=== PATIENT | male | born 1935 | race Caucasian/White ===

== ENCOUNTER 2017-09-20 09:53 | Day surgery (SDC) | payer OTHER, BC ==
[2017-09-20] MEDS ORDERED: PROPOFOL 20 ML ONE ×3 (11:15)
[2017-09-20 11:59] VITALS: TEMP 98
[2017-09-20 13:18] VITALS: BP 125/64; PULSE 62
--- NOTE | 2017-09-21 16:39 | PATH ---
Surgical Pathology Report Patient Name: ZULMA BENITEZ [facility]. Rec. #: [id number] /Age/Gender: 1935 (Age: 82) / M Account: [id number] Location: ASU-ENDOSCOPY Taken: 09/20/2017 Received: 09/20/2017 Reported: 09/21/2017 Physicians: Juan Antonio Florentino M.D. Specimen(s) Received A: BX DUODENUM B: BX ULCERATION 2ND PORTION DUODENUM C: BX DUODENUM BULB D: BX ANTRUM E: BX DISTAL ESOPHAGUS Clinical History Preoperative diagnosis: Reflux, constipation Postoperative diagnosis: Hiatal hernia, GERD, Schatzki's ring, atrophic gastritis, duodenal bulb polyp, ulcer second portion of duodenum, diverticulosis Final Diagnosis A. DUODENUM, SECOND PORTION/BULB, BIOPSY: DUODENAL MUCOSA WITH LYMPHOPLASMACYTOSIS WITHIN LAMINA PROPRIA, INCREASED INTRAEPITHELIAL LYMPHOCYTES, AND MILD VILLOUS BLUNTING. SEE COMMENT. B. DUODENUM, SECOND PORTION, ULCERATION, BIOPSY: DUODENAL MUCOSA WITH LYMPHOPLASMACYTOSIS WITHIN LAMINA PROPRIA, FOCAL ACUTE INFLAMMATION WITH ASSOCIATED ULCERATION, INCREASED INTRAEPITHELIAL LYMPHOCYTES, AND VILLOUS BLUNTING. SEE COMMENT. C. DUODENAL BULB, BIOPSY: DUODENAL MUCOSA WITH LYMPHOPLASMACYTOSIS WITHIN LAMINA PROPRIA, INCREASED INTRAEPITHELIAL LYMPHOCYTES, UYEN'S GLAND HYPERPLASIA, AND VILLOUS ATROPHY. SEE COMMENT. D. STOMACH, ANTRUM, BIOPSY: GASTRIC ANTRAL MUCOSA WITH MILD TO MODERATE CHRONIC GASTRITIS. IMMUNOHISTOCHEMICAL STAIN FOR H. PYLORI IS NEGATIVE. E. SCHATZI'S RING, DISTAL ESOPHAGUS, BIOPSY: SQUAMOCOLUMNAR MUCOSA WITH MODERATE CHRONIC INFLAMMATION AND CHANGES OF MILD REFLUX ESOPHAGITIS. NO INTESTINAL METAPLASIA OR DYSPLASIA IDENTIFIED. 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 Features of peptic duodenitis also present. Suggest clinical/serologic correlation. Electronically Signed Tonie Kaur M.D. Gross Description A. Received in formalin, labeled "biopsy second portion of duodenum and duodenal bulb" are 4 palacios, irregular portions of soft tissue ranging from 0.3-0.4 cm. in greatest dimension. The specimens are submitted in toto in one cassette. B. Received in formalin, labeled "biopsy ulceration second portion of duodenum" are 4 palacios, irregular portions of soft tissue ranging from 0.1-0.4 cm. in greatest dimension. The specimens are submitted in toto in one cassette. C. Received in formalin, labeled "biopsy duodenal bulb polyp" is a palacios, irregular portion of soft tissue measuring 0.2 cm. in greatest dimension. The specimen is submitted in toto in one cassette. D. Received in formalin, labeled "biopsy antrum" are 4 palacios, irregular portions of soft tissue ranging from 0.1-0.4 cm. in greatest dimension. The specimens are submitted in toto in one cassette. E. Received in formalin, labeled "biopsy Schatzki's ring distal esophagus" are 4 palacios, irregular portions of soft tissue ranging from 0.1-0.5 cm. in greatest dimension. The specimens are submitted in toto in one cassette. 09/20/2017 [facility]09/20/2017
== END 2017-09-20 13:10 | disposition home or self-care (01) ==
LOC: JASU-ENDO 09:53
PROVIDERS: ATTEND Internal Medicine Gastroenterology
PROC: 0DB68ZX Excision of Stomach, Via Natural or Artificial Opening Endoscopic, Diagnostic (ICD-10-PCS; 2017-09-20)
PROC: 0DB38ZX Excision of Lower Esophagus, Via Natural or Artificial Opening Endoscopic, Diagnostic (ICD-10-PCS; 2017-09-20)
PROC: 0DJD8ZZ Inspection of Lower Intestinal Tract, Via Natural or Artificial Opening Endoscopic (ICD-10-PCS; 2017-09-20)
PROC: 0DB98ZX Excision of Duodenum, Via Natural or Artificial Opening Endoscopic, Diagnostic (ICD-10-PCS; principal; 2017-09-20 11:00)
DX: K21.9 Gastro-esophageal reflux disease without esophagitis (principal); R19.4 Change in bowel habit; K44.9 Diaphragmatic hernia without obstruction or gangrene; K22.2 Esophageal obstruction; K31.819 Angiodysplasia of stomach and duodenum without bleeding; K26.9 Duodenal ulcer, unspecified as acute or chronic, without hemorrhage or perforation; K29.50 Unspecified chronic gastritis without bleeding; Z86.010 Personal history of colon polyps
CPT/HCPCS: 88305-TC; 88342-TC

== ENCOUNTER 2018-11-21 11:13 | Inpatient (IN) | payer OTHER, BC ==
[2018-11-21] MEDS ORDERED: DIPHTH,PERTUSS(ACELL),TET 0.5 ML DISP.SYRIN IM ONE ×2 (12:08→12:34)
[2018-11-21 12:41] LABS: BASO % 0.2 % (0-2.0); EOS % 2.6 % (0-4.5); HEMATOCRIT 30.3 % (35.4-49); HEMOGLOBIN 9.8 GM/dL (11.7-16.9); LYMPH % 8.3 % (8-40); MCH 29.1 pg (25.7-33.7); MCHC 32.5 g/dl (32.0-35.9); MEAN CELL VOLUME 89.5 fl (80-96); MEAN PLT VOLUME 8.2 fl (7.5-11.1); MONO % 14.4 % (3.8-10.2); NEUT % 74.5 % (42.8-82.8); PLATELET COUNT 172 K/MM3 (134-434); RBC 3.38 M/mm3 (4.00-5.60); RDW 19.5 % (11.9-15.9); WHITE BLOOD COUNT 8.6 K/mm3 (4.0-10.0)
--- NOTE | 2018-11-21 12:55 | PDOC ---
Documentation entered by Leonor Whitney SCRIBE, acting as scribe for James Miguel MD. James Miguel MD: This documentation has been prepared by the Chelo pemberton Nirvannie, SCRIBE, under my direction and personally reviewed by me in its entirety. I confirm that the documentation accurately reflects all work, treatment, procedures, and medical decision making performed by me. History of Present Illness - General Chief Complaint: Syncope/Near Syncope Stated Complaint: SYNCOPE Time Seen by Provider: 11/21/18 11:48 History Source: Patient Exam Limitations: No Limitations - History of Present Illness Initial Comments: 11/21/18 12:23 CC: Syncope HPI: The patient is a 83 year old male, with a significant past medical history of HTN, HLD, CAD (s/p cardiac stenting x2), and prostate cancer (s/p radiation at [facility] approx. way through treatment), who presents to the emergency department s /p episode of syncope while ambulating to the bathroom. As per patient, for the past 4 days he has been experiencing loose, watery, nonbloody diarrhea with associated moderate, diffuse, constant abdominal pain for which he took Imodium for, without relief. During his episode, patient endorses abrasions to the left sided forehead, left cheek, and left elbow. Patient is unaware of his last tetanus shot. He denies any recent antibiotic usage, travel, or hospitalizations. He denies any recent fevers, chills, headache, lightheadedness, or dizziness. He denies any recent nausea, vomit, diarrhea or constipation. He denies any recent chest pain or shortness of breath. He denies any recent dysuria, frequency, urgency or hematuria. Allergies: Penicillins. Primary Care Physician: Dr. Johnson Past History - Past Medical History Allergies/Adverse Reactions: Allergies Allergy/AdvReac Type Severity Reaction Status Date / Time Penicillins Allergy Verified 11/21/18 11:33 Home Medications: Ambulatory Orders Allopurinol [Zyloprim -] 300 mg PO DAILY 01/24/13 Metoprolol Succinate [Toprol XL -] 50 mg PO DAILY 01/24/13 Olmesartan Medoxomil [Benicar -] 40 mg PO DAILY 01/24/13 Ranolazine [Ranexa] 500 mg PO DAILY 01/25/13 Aspirin [ASA -] 81 mg PO DAILY 09/17/17 Pantoprazole Sodium [Protonix] 40 mg PO DAILY 09/17/17 Polyethylene Glycol 3350 [Miralax 255 gm Btl] 17 gm PO DAILY #1 bottle 09/20/17 Anemia: No Asthma: No Cancer: Yes (prostate) Cardiac Disorders: Yes (ASHD; CAD) CVA: No COPD: No CHF: No Dementia: No Diabetes: No GI Disorders: Yes (GERD; COLON ADENOMA;DIVERTICULOSIS;DUODENAL ULCERS) Disorders: Yes (BPH) HTN: No Hypercholesterolemia: Yes Liver Disease: No Seizures: No Thyroid Disease: No - Surgical History Abdominal Surgery: No Appendectomy: No Cardiac Surgery: Yes (STENTS X 2004; S/P LEFT CAROTID ARTERY SURGERY) Cholecystectomy: No Lung Surgery: No Neurologic Surgery: No Orthopedic Surgery: Yes (ORIF ARM) - Immunization History Immunization Up to Date: Yes - Suicide/Smoking/Psychosocial Hx Smoking History: Former smoker Have you smoked in the past 12 months: No If you are a former smoker, when did you quit?: 50 yrs ago Information on smoking cessation initiated: No Hx Alcohol Use: No Drug/Substance Use Hx: No Substance Use Type: None Hx Substance Use Treatment: No Review of Systems - Review of Systems Able to Perform ROS?: Yes Comments:: 11/21/18 12:23 ROS: A complete review of 10 out of 10 review of systems is taken and is negative apart from what is previously mentioned below and in the HPI. *Physical Exam - Vital Signs Last Vital Signs Temp Pulse Resp BP Pulse Ox 97.3 F L 70 18 114/53 L 100 11/21/18 11:20 11/21/18 11:20 11/21/18 11:20 11/21/18 11:20 11/21/18 11:20 - Physical Exam Comments: 11/21/18 12:23 Vitals: Triage vital signs reviewed General Appearance: No acute distress, well nourished, well developed Head: +Abrasions to the left forehead and left cheek. Neck: Supple; No nuchal rigidity Chest Wall: Nontender Cardiac: Regular rate and rhythm, no murmurs, no rubs, no gallops Lungs: Clear to auscultation bilateral, good air movement bilaterally Abdomen: Soft, nondistended, normal bowel sounds, nontender to palpation Genitourinary: Exam deferred Rectal: Exam deferred Extremities: +Left elbow abrasion. Full range of motion to all extremities, no cyanosis, clubbing, or edema Skin: Warm and dry, no rash, no petechiae Neuro: AOX3; Cranial Nerves 2-12 grossly intact, Strength intact to all extremities, Sensation intact to all extremities, gait normal Psych: Normal mood, normal affect ED Treatment Course - LABORATORY CBC & Chemistry Diagram: 11/21/18 12:27 11/21/18 11:36 Medical Decision Making - Medical Decision Making 11/21/18 12:26 83 year old male, with a significant past medical history of HTN, HLD, CAD (s/p cardiac stenting x2), and prostate cancer (s/p radiation at [facility] approx. way through treatment), who presents to the emergency department s/p episode of syncope while ambulating to the bathroom. 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 *DC/Admit/Observation/Transfer Diagnosis at time of Disposition: Hypernatremia, Hypocalcemia Syncope Qualifiers: Syncope type: unspecified Qualified Code(s): R55 - Syncope and collapse - Discharge Dispostion Decision to Admit order: Yes - Referrals - Patient Instructions - Post Discharge Activity
[2018-11-21 13:29] LABS: ALBUMIN 2.5 g/dl (3.4-5.0); ALK PHOS 101 U/L (45-117); ANION GAP 9 MMOL/L (8-16); BILIRUBIN,TOTAL 0.3 mg/dL (0.2-1); BLOOD UREA NITROGEN 24 mg/dL (7-18); CHLORIDE 121 mmol/L (98-107); CO2 16 mmol/L (21-32); CREATININE 1.6 mg/dL (0.55-1.3); GLUCOSE,RANDOM 76 mg/dL (74-106); POTASSIUM 4.4 mmol/L (3.5-5.1); SGOT/AST 20 U/L (15-37); SGPT/ALT 13 U/L (13-61); SODIUM 146 mmol/L (136-145); TOT PROT 5.2 g/dl (6.4-8.2)
[2018-11-21 13:39] LABS: CALCIUM < 5.0 mg/dL (8.5-10.1)
[2018-11-21] MEDS ORDERED: SODIUM CHLORIDE 0.9% 1000 ML INFUS.BAG IV ONE (14:14)
[2018-11-21] MEDS ORDERED: CALCIUM GLUCONATE 10% - 1,000 MG/10 ML VIAL IVPB ONE ×2 (14:14→22:13)
[2018-11-21] MEDS ORDERED: CALCIUM GLUCONATE 10% - 1,000 MG/10 ML VIAL ONE (14:42)
[2018-11-21] MEDS ORDERED: BACITRACIN 0.9 GM PACKET ONE (16:43)
[2018-11-21 17:53] LABS: PHOSPHOROUS 2.2 mg/dL (2.5-4.9)
[2018-11-21] MEDS: DEXTROSE 5%-0.45% SALINE 1,000 ML IV SCH ×2 (18:33→23:07)
[2018-11-21] MEDS: PANTOPRAZOLE 20 MG TABLET (FP) PO SCH (22:19)
[2018-11-21] MEDS: RANOLAZINE E.R. 500 MG TABLET (FP) PO SCH (22:19)
[2018-11-22 05:52] LABS: HEMATOCRIT 31.1 % (35.4-49); HEMOGLOBIN 10.1 GM/dL (11.7-16.9); MCH 28.4 pg (25.7-33.7); MCHC 32.5 g/dl (32.0-35.9); MEAN CELL VOLUME 87.5 fl (80-96); MEAN PLT VOLUME 8.2 fl (7.5-11.1); PLATELET COUNT 193 K/MM3 (134-434); RBC 3.55 M/mm3 (4.00-5.60); RDW 19.2 % (11.9-15.9)
[2018-11-22 07:27] LABS: ALBUMIN 2.4 g/dl (3.4-5.0); ALK PHOS 104 U/L (45-117); ANION GAP 10 MMOL/L (8-16); BILIRUBIN,TOTAL 0.3 mg/dL (0.2-1); BLOOD UREA NITROGEN 21 mg/dL (7-18); CHLORIDE 120 mmol/L (98-107); CO2 14 mmol/L (21-32); CREATININE 1.3 mg/dL (0.55-1.3); GLUCOSE,RANDOM 87 mg/dL (74-106); MAGNESIUM 0.6 mg/dL (1.8-2.4); PHOSPHOROUS 2.6 mg/dL (2.5-4.9); POTASSIUM 4.2 mmol/L (3.5-5.1); SGOT/AST 22 U/L (15-37); SGPT/ALT 14 U/L (13-61); SODIUM 143 mmol/L (136-145); TOT PROT 5.2 g/dl (6.4-8.2); URIC ACID 4.9 mg/dL (2.6-7.2)
[2018-11-22 08:31] LABS: CALCIUM 5.1 mg/dL (8.5-10.1)
[2018-11-22] MEDS ORDERED: PT OWN MED DRAWER 7, Y5N ONE ×2 (08:51→21:11)
[2018-11-22] MEDS: RANOLAZINE E.R. 500 MG TABLET (FP) PO SCH ×2 (09:11→21:21)
[2018-11-22] MEDS: PANTOPRAZOLE 20 MG TABLET (FP) PO SCH ×2 (09:12→21:21)
[2018-11-22] MEDS: CALCIUM CARBONATE 650 MG TABLET PO SCH ×2 (09:12→21:21)
[2018-11-22] MEDS ORDERED: MAGNESIUM SULF 50% (8.12 MEQ/2 ML-1 GM VIAL) IVPB ONE ×2 (10:00→21:15)
[2018-11-22] MEDS: metoPROLOL SUCCINATE 25 MG TAB.SR.24H (FP) PO SCH (11:30)
[2018-11-22 14:11] LABS: URINE APPEARANCE CLEAR; URINE BILIRUBIN NEGATIVE (NEGATIVE); URINE COLOR YELLOW; URINE GLUCOSE (UA) NEGATIVE (NEGATIVE); URINE KETONE NEGATIVE (NEGATIVE); URINE LEUK ESTERASE NEGATIVE (NEGATIVE); URINE NITRITE NEGATIVE (NEGATIVE); URINE PROTEIN NEGATIVE (NEGATIVE); URINE UROBILINOGEN 0.2 mg/dL (0.2-1.0)
--- NOTE | 2018-11-22 14:17 | HP ---
Admitting History and Physical - Primary Care Physician PCP: Erasmo Johnson - Admission Chief Complaint: fainted History of Present Illness: 83 year old male, who was BIBA following a syncopal episode at home. He has a significant past medical history of HTN, HLD, CAD (s/p cardiac stenting x2), and local prostate cancer (currently undergoing RT via [facility] --completed 04/20 sessions), who sys that he developed watery stools about 6-7 days ago right after his RT sessions began. prior to thius he had no had any such problem and was actually taking Miralax (for chronic constipation) that he stopped at the time his watery BMs began. On the day he was brought in; he lost consciousness and fell at home while ambulating to the bathroom. he struck his forehead and his LUE. He denied any bloody BMs, no n-v, did have some transient lower abd pains. He took Imodium but it offered no relief. He denies any recent antibiotic usage, travel, He denies any recent fevers, chills, headache. He denies any recent chest pain or shortness of breath. He has c/o of slow urinary flow while getting RT and placed on Flomax but had no response. he only trook 2 doses of the Flomax. History Source: Patient Limitations to Obtaining History: No Limitations - Past Medical History Cardiovascular: Yes: CAD, HTN, Hyperlipdemia Gastrointestinal: Yes: Constipation Renal/: Yes: Cancer Heme/Onc: Yes: Anemia Musculoskeletal: Yes: Osteoarthritis Rheumatology: Yes: Gout - Past Surgical History Additional Past Surgical History: circumcision; coronary stenting; prostate Bx - Advance Directives Advance Directives: Yes: Living Will, Health Care Proxy - Smoking History Smoking history: Former smoker Have you smoked in the past 12 months: No If you are a former smoker, when did you quit?: 50 years ago - Alcohol/Substance Use Hx Alcohol Use: No Home Medications - Allergies Allergies/Adverse Reactions: Allergies Allergy/AdvReac Type Severity Reaction Status Date / Time Penicillins Allergy Verified 11/21/18 11:33 - Home Medications Home Medications: Ambulatory Orders Allopurinol [Zyloprim -] 300 mg PO DAILY 01/24/13 Metoprolol Succinate [Toprol XL -] 50 mg PO DAILY 01/24/13 Olmesartan Medoxomil [Benicar -] 40 mg PO DAILY 01/24/13 Ranolazine [Ranexa] 500 mg PO DAILY 01/25/13 Aspirin [ASA -] 81 mg PO DAILY 09/17/17 Pantoprazole Sodium [Protonix] 40 mg PO DAILY 09/17/17 Polyethylene Glycol 3350 [Miralax 255 gm Btl] 17 gm PO DAILY #1 bottle 09/20/17 Bicalutamide 50 mg PO DAILY 11/22/18 Leuprolide Acetate Q3M 11/22/18 Naproxen Sodium [Aleve] 220 mg PO BID PRN MDD 440 mg 11/22/18 Pregabalin [Lyrica -] 150 mg PO BID PRN MDD 300 mg 11/22/18 Prolia - 11/22/18 Tamsulosin HCl [Flomax] 0.4 mg PO HS 11/22/18 Family Disease History - Family Disease History Family History: Unremarkable Review of Systems - Review of Systems Constitutional: reports: No Symptoms Eyes: reports: No Symptoms HENT: reports: No Symptoms Neck: reports: No Symptoms Cardiovascular: reports: No Symptoms Respiratory: reports: No Symptoms Gastrointestinal: reports: Diarrhea Genitourinary: reports: Dysuria Musculoskeletal: reports: No Symptoms Integumentary: reports: Bruising (LUE; forehead) Neurological: reports: Syncope Endocrine: reports: No Symptoms Hematology/Lymphatic: reports: No Symptoms Psychiatric: reports: No Symptoms Physical Examination Vital Signs: Vital Signs Temperature 97.9 F 11/22/18 10:00 Pulse Rate 80 11/22/18 10:00 Respiratory Rate 18 11/22/18 10:00 Blood Pressure 118/47 L 11/22/18 10:00 O2 Sat by Pulse Oximetry (%) 99 11/22/18 09:00 Constitutional: Yes: Well Nourished, No Distress Eyes: Yes: Conjunctiva Clear HENT: Yes: WNL Neck: Yes: WNL Cardiovascular: Yes: Regular Rate and Rhythm Respiratory: Yes: Regular Gastrointestinal: Yes: Normal Bowel Sounds, Soft ...Rectal Exam: Yes: Deferred Musculoskeletal: Yes: WNL Extremities: Yes: WNL Edema: No Peripheral Pulses WNL: Yes Integumentary: Yes: Bruising, Skin Tear (LUE and forehead) Neurological: Yes: WNL, Alert, Oriented ...Motor Strength: WNL Psychiatric: Yes: WNL Labs: CBC, BMP 11/22/18 05:30 11/22/18 05:30 CBCD WBC 7.0 K/mm3 (4.0-10.0) 11/22/18 05:30 RBC 3.55 M/mm3 (4.00-5.60) L 11/22/18 05:30 Hgb 10.1 GM/dL (11.7-16.9) L 11/22/18 05:30 Hct 31.1 % (35.4-49) L 11/22/18 05:30 MCV 87.5 fl (80-96) 11/22/18 05:30 MCHC 32.5 g/dl (32.0-35.9) 11/22/18 05:30 RDW 19.2 % (11.9-15.9) H 11/22/18 05:30 Plt Count 193 K/MM3 (134-434) 11/22/18 05:30 MPV 8.2 fl (7.5-11.1) 11/22/18 05:30 CMP Sodium 143 mmol/L (136-145) 11/22/18 05:30 Potassium 4.2 mmol/L (3.5-5.1) 11/22/18 05:30 Chloride 120 mmol/L (98-107) H 11/22/18 05:30 Carbon Dioxide 14 mmol/L (21-32) L 11/22/18 05:30 Anion Gap 10 MMOL/L (8-16) 11/22/18 05:30 BUN 21 mg/dL (7-18) H 11/22/18 05:30 Creatinine 1.3 mg/dL (0.55-1.3) 11/22/18 05:30 Creat Clearance w eGFR 52.47 (>60) 11/22/18 05:30 Random Glucose 87 mg/dL (74-106) 11/22/18 05:30 Calcium 5.1 mg/dL (8.5-10.1) L* 11/22/18 05:30 Total Bilirubin 0.3 mg/dL (0.2-1) 11/22/18 05:30 AST 22 U/L (15-37) 11/22/18 05:30 ALT 14 U/L (13-61) 11/22/18 05:30 Alkaline Phosphatase 104 U/L (45-117) 11/22/18 05:30 Total Protein 5.2 g/dl (6.4-8.2) L 11/22/18 05:30 Albumin 2.4 g/dl (3.4-5.0) L 11/22/18 05:30 CARDIAC ENZYMES Troponin I < 0.02 ng/ml (0.00-0.05) 11/21/18 11:36 Imaging - Results Chest X-ray: Report Reviewed Cat Scan: Report Reviewed EKG: Report Reviewed Problem List - Problems (1) Syncope Assessment/Plan: suddenly lost consciousness when upright & walking; causing abrasion to head and LUE; the LOC was likely 2nd low BP state stemming from his copious watery diarrhea that began at the start of his RT (for prostate cancer): PLAN: on athletic monitor; check ortho BPs; PT eval. Code(s): R55 - SYNCOPE AND COLLAPSE Qualifiers: Syncope type: unspecified Qualified Code(s): R55 - Syncope and collapse (2) Hypocalcemia Assessment/Plan: profoundly low; likley 2nd copious watery stools PLAN: replenish Code(s): E83.51 - HYPOCALCEMIA (3) Hypernatremia Assessment/Plan: 2nd intravasc contraction from watery diarrhea. 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 PLAN: get GI consult; stool studies if possible. Code(s): R19.7 - DIARRHEA, UNSPECIFIED Qualifiers: Diarrhea type: unspecified type Qualified Code(s): R19.7 - Diarrhea, unspecified (7) Anemia Assessment/Plan: mild; not new NC/NC Code(s): D64.9 - ANEMIA, UNSPECIFIED Qualifiers: Anemia type: unspecified type Qualified Code(s): D64.9 - Anemia, unspecified (8) Hypomagnesemia Assessment/Plan: 2nd copious fluid losses; PLAN: replensih Code(s): E83.42 - HYPOMAGNESEMIA (9) History of coronary artery stent placement Assessment/Plan: has been stable Code(s): Z95.5 - PRESENCE OF CORONARY ANGIOPLASTY IMPLANT AND GRAFT Assessment/Plan The patient is a 83 year old male, admiitted for syncope preceded by days of daily and sevewre loose stools; with resultant electrolyte imbalances. he will need to be repleted and levels monitored. ~~~~~~~~~~~~~~~~~~~~~~~~~~~~~~~~~~~~~~~ Dr Johnson
--- NOTE | 2018-11-22 14:20 | EKG ---
Test Reason : Blood Pressure : / mmHG Vent. Rate : 063 BPM Atrial Rate : 063 BPM P-R Int : 242 ms QRS Dur : 062 ms QT Int : 478 ms P-R-T Axes : 063 010 039 degrees QTc Int : 489 ms POOR DATA QUALITY, INTERPRETATION MAY BE ADVERSELY AFFECTED SINUS RHYTHM WITH 1ST DEGREE A-V BLOCK NONSPECIFIC T WAVE ABNORMALITY PROLONGED QT ABNORMAL ECG Confirmed by MD MAINE, SHERRELL ([id number]) on 11/22/2018 2:19:53 PM Referred By: Confirmed By:SHERRELL GROVE MD
[2018-11-22] MEDS: DEXTROSE 5%-0.45% SALINE 1,000 ML IV SCH ×2 (17:15→18:31)
[2018-11-22] MEDS: AMINO ACIDS/PROTEIN HYDROLYS 30 ML LIQUID.PKT PO SCH (17:18)
--- NOTE | 2018-11-22 17:22 | CON.GI ---
Consult Consult Specialty:: Gastroenterology Referred by:: Dr Johnson Reason for Consultation:: Diarrhea - History of Present Illness Chief Complaint: Profuse diarrhea leading to a syncopal spell History of Present Illness: 83M developed watery diarrhea 7 days ago. His initial BMs occurred 7 times a day and initially had greasy stool particles that were difficult to flush. He immediately stopped taking his Miralax and apparently tried Imodium but the diarrhea persisted. He denies having had abdominal cramps ( but the ER reports abdominal pain) bleeding, chills, tenesmus, nausea or vomiting. He admits to drinking insufficiently as it caused noicturia and had no electrolyte solutions. He is in the midst of RT for prostate cancer, having received 9 of his anticipated 26 dosages.He has been exposed to antibiotics while getting dental implants in 2018. No foreign travel. No exposures to family members with diarrhea. He did receive a Prolia injection 3 weeks ago and prior to that had been given a Lupron injection. His appetite has been poor for over a year and he has been losing weight. He also lost his taste for meat. He attributed it to Nifedipine which was recently stopped. He weighed over 200 lbs at one time. He weigher 185 lbs in my office on 09/09/17 where he complained of worsening constipation and heartburn. He underwent an EGD and a colonoscopy on 09/20/17. The EGD revealed mild GERD above a hiatal hernia and a patent Schatzki ring, atrophic gastritis and a small vascular ectasia in the 2nd portion of the duodenum. The colonoscopy revealed mild sigmoid diverticulosis but an otherwise normal colon. His fecal impaction had responded to a Miralax lavage and he was advised to take one dose daily. With this he was having a well formed BM regularly until 7 days ago. He tells me that he is being evaluated at [facility] for a pancreatic cyst that was 7mm in the tail of th3 pancreas on [address] here on 06/06/18, suggesting an IPMN. - History Source History Provided By: Patient Limitations to Obtaining History: No Limitations - Past Medical History Cardio/Vascular: Yes: CAD (4 coronary stenst in 2004), HTN, Hyperlipdemia, Other (carotid stenosis) Gastrointestinal: Yes: Constipation, Diverticulosis, GERD, Hiatal Hernia, Peptic Ulcer Disease (duodenal ulcer 2012), Other (colon ademnoma removed 2012, 06/06/18 pancreatic tail 7mm IPMN) Renal/: Yes: BPH, Cancer (prostate cancer) Musculoskeletal: Yes: Osteoarthritis Rheumatology: Yes: Gout Endocrine: Yes: Osteopenia (osteporosis) - Past Surgical History Past Surgical History: Yes: Carotid Endarterectomy (left), Tonsillectomy Additional Surgical History: LUE fracture surgery - Alcohol/Substance Use Hx Alcohol Use: Yes (socially) History of Substance Use: reports: None - Smoking History Smoking history: Former smoker Have you smoked in the past 12 months: No If you are a former smoker, when did you quit?: 1959 - Social History Usual Living Arrangement: With Spouse ADL: Independent 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 Place of : [facility] History of Recent Travel: No Home Medications - Allergies Allergies/Adverse Reactions: Allergies Allergy/AdvReac Type Severity Reaction Status Date / Time Penicillins Allergy Verified 11/21/18 11:33 - Home Medications Home Medications: Ambulatory Orders Allopurinol [Zyloprim -] 300 mg PO DAILY 01/24/13 Metoprolol Succinate [Toprol XL -] 50 mg PO DAILY 01/24/13 Olmesartan Medoxomil [Benicar -] 40 mg PO DAILY 01/24/13 Ranolazine [Ranexa] 500 mg PO DAILY 01/25/13 Aspirin [ASA -] 81 mg PO DAILY 09/17/17 Pantoprazole Sodium [Protonix] 40 mg PO DAILY 09/17/17 Polyethylene Glycol 3350 [Miralax 255 gm Btl] 17 gm PO DAILY #1 bottle 09/20/17 Bicalutamide 50 mg PO DAILY 11/22/18 Leuprolide Acetate Q3M 11/22/18 Naproxen Sodium [Aleve] 220 mg PO BID PRN MDD 440 mg 11/22/18 Pregabalin [Lyrica -] 150 mg PO BID PRN MDD 300 mg 11/22/18 Prolia - 11/22/18 Tamsulosin HCl [Flomax] 0.4 mg PO HS 11/22/18 Family Disease History - Family Disease History Family Disease History: Heart Disease: Father (CHF), Brother ( with jaundice ), CA: Mother (Uterine cancer), Other: Brother Other Family History: Grandaughter has Crohn's Disease Review of Systems - Review of Systems Constitutional: reports: Loss of Appetite, Unintentional Wgt. Loss, Other ( dysgeusia) Eyes: reports: No Symptoms HENT: reports: No Symptoms Neck: reports: No Symptoms Cardiovascular: reports: No Symptoms Respiratory: reports: No Symptoms Gastrointestinal: reports: Diarrhea Genitourinary: reports: Frequency Physical Exam-GI Vital Signs: Vital Signs Temperature 97.9 F 11/22/18 10:00 Pulse Rate 66 11/22/18 13:00 Respiratory Rate 18 11/22/18 10:00 Blood Pressure 117/49 L 11/22/18 13:00 O2 Sat by Pulse Oximetry (%) 99 11/22/18 09:00 CBC,CMP WBC 7.0 K/mm3 (4.0-10.0) 11/22/18 05:30 RBC 3.55 M/mm3 (4.00-5.60) L 11/22/18 05:30 Hgb 10.1 GM/dL (11.7-16.9) L 11/22/18 05:30 Hct 31.1 % (35.4-49) L 11/22/18 05:30 MCV 87.5 fl (80-96) 11/22/18 05:30 MCH 28.4 pg (25.7-33.7) 11/22/18 05:30 MCHC 32.5 g/dl (32.0-35.9) 11/22/18 05:30 RDW 19.2 % (11.9-15.9) H 11/22/18 05:30 Plt Count 193 K/MM3 (134-434) 11/22/18 05:30 MPV 8.2 fl (7.5-11.1) 11/22/18 05:30 Absolute Neuts (auto) 6.4 K/mm3 (1.5-8.0) 11/21/18 12:27 Neutrophils % 74.5 % (42.8-82.8) 11/21/18 12:27 Lymphocytes % 8.3 % (8-40) 11/21/18 12:27 Monocytes % 14.4 % (3.8-10.2) H 11/21/18 12:27 Eosinophils % 2.6 % (0-4.5) 11/21/18 12:27 Basophils % 0.2 % (0-2.0) 11/21/18 12:27 Nucleated RBC % 0 % (0-0) 11/21/18 12:27 Sodium 143 mmol/L (136-145) 11/22/18 05:30 Potassium 4.2 mmol/L (3.5-5.1) 11/22/18 05:30 Chloride 120 mmol/L (98-107) H 11/22/18 05:30 Carbon Dioxide 14 mmol/L (21-32) L 11/22/18 05:30 Anion Gap 10 MMOL/L (8-16) 11/22/18 05:30 BUN 21 mg/dL (7-18) H 11/22/18 05:30 Creatinine 1.3 mg/dL (0.55-1.3) 11/22/18 05:30 Creat Clearance w eGFR 52.47 (>60) 11/22/18 05:30 Random Glucose 87 mg/dL (74-106) 11/22/18 05:30 Uric Acid 4.9 mg/dL (2.6-7.2) 11/22/18 05:30 Calcium 5.1 mg/dL (8.5-10.1) L* 11/22/18 05:30 Phosphorus 2.6 mg/dL (2.5-4.9) 11/22/18 05:30 Magnesium 0.6 mg/dL (1.8-2.4) L 11/22/18 05:30 Total Bilirubin 0.3 mg/dL (0.2-1) 11/22/18 05:30 AST 22 U/L (15-37) 11/22/18 05:30 ALT 14 U/L (13-61) 11/22/18 05:30 Alkaline Phosphatase 104 U/L (45-117) 11/22/18 05:30 Troponin I < 0.02 ng/ml (0.00-0.05) 11/21/18 11:36 Total Protein 5.2 g/dl (6.4-8.2) L 11/22/18 05:30 Albumin 2.4 g/dl (3.4-5.0) L 11/22/18 05:30 TSH 1.18 uIU/ml (0.358-3.74) 11/22/18 05:30 Current Medications Generic Name Dose Route Start Last Admin Trade Name Freq PRN Reason Stop Dose Admin Amino Acids 30 ml 11/22/18 17:30 11/22/18 17:18 Prosource No Carb Liquid Pkt PO 30 ml BID@0800,1730 CAIO Administration Calcium Carbonate 650 mg 11/22/18 10:00 11/22/18 09:12 Calcium Carbonate - PO 650 mg BID CAIO Administration Dextrose/Sodium Chloride 1,000 mls @ 42 mls/hr 11/21/18 16:15 11/22/18 17:15 D5-1/2ns - IV Not Given ASDIR CAIO Loperamide HCl 2 mg 11/21/18 16:20 Imodium - PO Q8H PRN DIARRHEA Metoprolol Succinate 25 mg 11/22/18 10:00 11/22/18 11:30 Toprol Xl - PO Not Given DAILY CAIO Pantoprazole Sodium 20 mg 11/21/18 22:00 11/22/18 09:12 Protonix - PO 20 mg BID CAIO Administration Ranolazine 500 mg 11/21/18 22:00 11/22/18 09:11 Ranexa - PO 500 mg BID CAIO Administration Constitutional: Yes: Calm Eyes: Yes: Conjunctiva Clear HENT: Yes: Atraumatic, Other (forehead bruise) Neck: Yes: Supple Cardiovascular: Yes: Regular Rate and Rhythm Respiratory: Yes: CTA Bilaterally Gastrointestinal Inspection: Yes: WNL ...Auscultate: Yes: Hypoactive Bowel Sounds ...Palpate: Yes: Soft, Other (nontender) ...Rectal Exam: Yes: Guaiac Positive (smudge of loose brown guaiac positive stool), Other (2+ prostate) Extremities: Yes: Other (left elbow maceration, RUE maceration) Edema: No Neurological: Yes: Alert, Oriented Labs: CBC, BMP 11/22/18 05:30 11/22/18 05:30 Problem List - Problems (1) Diarrhea Assessment/Plan: Given the profound hypomagnesemia leading to hypocalcemia and syncope I suspect that enteritis is more at play than colitis. Given the persistence after it was stopped I do not think that Miralax is at fault. Potential etiologies include RT enteritis, small bowel overgrowth syndrome (SIBA) or another infectious enteritis ( C. diff enterocolitis, giardiasis, isospora angelica, microsporidia in an immunocompromised host), flare of an underlying celiac disease ( doubt this as biopsies did not identify this). Although his grandaughter has Crohns Disease this is also unlikely as it usually has a more insidous onset. Pancreatic etiologies such as insufficiency ,Hadley Cruz syndrome ( also unlikely given lack of ulceration at EGD), VIPoma or glucagonoma seem less likely. Code(s): R19.7 - DIARRHEA, UNSPECIFIED Qualifiers: Diarrhea type: unspecified type Qualified Code(s): R19.7 - Diarrhea, unspecified (2) Syncope Code(s): R55 - SYNCOPE AND COLLAPSE Qualifiers: Syncope type: unspecified Qualified Code(s): R55 - Syncope and collapse (3) Hypocalcemia Code(s): E83.51 - HYPOCALCEMIA (4) Hypomagnesemia Code(s): E83.42 - HYPOMAGNESEMIA (5) Anemia Code(s): D64.9 - ANEMIA, UNSPECIFIED Qualifiers: Anemia type: unspecified type Qualified Code(s): D64.9 - Anemia, unspecified (6) IPMN (intraductal papillary mucinous neoplasm) Code(s): D49.0 - NEOPLASM OF UNSPECIFIED BEHAVIOR OF DIGESTIVE SYSTEM (7) Prostate cancer Code(s): C61 - MALIGNANT NEOPLASM OF PROSTATE (8) Colon adenoma Code(s): D12.6 - BENIGN NEOPLASM OF COLON, UNSPECIFIED (9) Diverticulosis Code(s): K57.90 - DVRTCLOS OF INTEST, PART UNSP, W/O PERF OR ABSCESS W/O BLEED (10) Hiatal hernia with GERD without esophagitis Code(s): K44.9 - DIAPHRAGMATIC HERNIA WITHOUT OBSTRUCTION OR GANGRENE; K21.9 - GASTRO-ESOPHAGEAL REFLUX DISEASE WITHOUT ESOPHAGITIS (11) Vascular ectasia of duodenum Code(s): K31.89 - OTHER DISEASES OF STOMACH AND DUODENUM (12) History of coronary artery stent placement Code(s): Z95.5 - PRESENCE OF CORONARY ANGIOPLASTY IMPLANT AND GRAFT (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 Given his antibiotic exposure C diff needs to be excluded as well as other infectious etiologies including SIBA. Doubt Crohn's, celiac disease presenting this late in life personal h/o duodenal ulcer, GERD, cololn adenoma and diverticulosis, [facility] with Crohn's Disease Plan: Replace magnesium, calcium and IV fluids. Will check ionized Ca Continue Imodium Stool for C diff and cultures being collected Fecal elastase and stool for fat Will check VBG , bicarb is 14 Lactose free soft diet Will reserve flex sig for persistent diarrhea. Would not risk anesthesia with prolonged QT and current electrolyte imbalance
[2018-11-22 19:55] LABS: MAGNESIUM 1.3 mg/dL (1.8-2.4)
[2018-11-22] MEDS ORDERED: [UNRECOGNIZED DRUG - OTHER] IVPB ONE (21:15)
[2018-11-22] MEDS ORDERED: MAGNESIUM SULF 50% (8.12 MEQ/2 ML-1 GM VIAL) ONE (21:16)
[2018-11-22 21:55] LABS: CALCIUM 5.1 mg/dL (8.5-10.1)
[2018-11-22] MEDS ORDERED: CALCIUM GLUCONATE 10% - 1,000 MG/10 ML VIAL IVPB ONE (22:42)
[2018-11-23] MEDS: DEXTROSE 5%-0.45% SALINE 1,000 ML IV SCH ×2 (05:11→16:31)
[2018-11-23 06:12] LABS: BASO % 0.2 % (0-2.0); EOS % 4.5 % (0-4.5); HEMATOCRIT 27.7 % (35.4-49); HEMOGLOBIN 9.2 GM/dL (11.7-16.9); LYMPH % 13.7 % (8-40); MCH 28.7 pg (25.7-33.7); MCHC 33.2 g/dl (32.0-35.9); MEAN CELL VOLUME 86.6 fl (80-96); MEAN PLT VOLUME 8.1 fl (7.5-11.1); MONO % 12.9 % (3.8-10.2); NEUT % 68.7 % (42.8-82.8); PLATELET COUNT 193 K/MM3 (134-434); RDW 19.2 % (11.9-15.9); WHITE BLOOD COUNT 8.1 K/mm3 (4.0-10.0)
[2018-11-23] MEDS: AMINO ACIDS/PROTEIN HYDROLYS 30 ML LIQUID.PKT PO SCH ×2 (08:12→16:32)
[2018-11-23 08:38] LABS: ANION GAP 9 MMOL/L (8-16); BLOOD UREA NITROGEN 16 mg/dL (7-18); CHLORIDE 119 mmol/L (98-107); CO2 16 mmol/L (21-32); CREATININE 1.1 mg/dL (0.55-1.3); GLUCOSE,RANDOM 98 mg/dL (74-106); MAGNESIUM 1.6 mg/dL (1.8-2.4); PHOSPHOROUS 1.9 mg/dL (2.5-4.9); SODIUM 144 mmol/L (136-145)
[2018-11-23 08:51] LABS: LDH 242 U/L (87-246)
[2018-11-23 09:00] LABS: CALCIUM 5.1 mg/dL (8.5-10.1)
[2018-11-23] MEDS ORDERED: PT OWN MED DRAWER 7, Y5N ONE (09:08)
[2018-11-23] MEDS: metoPROLOL SUCCINATE 25 MG TAB.SR.24H (FP) PO SCH (09:15)
[2018-11-23] MEDS: RANOLAZINE E.R. 500 MG TABLET (FP) PO SCH ×2 (09:15→21:40)
[2018-11-23] MEDS: PANTOPRAZOLE 20 MG TABLET (FP) PO SCH ×2 (09:15→21:40)
[2018-11-23] MEDS: CALCIUM CARBONATE 650 MG TABLET PO SCH (09:15)
[2018-11-23] MEDS ORDERED: MAGNESIUM SULF 50% (8.12 MEQ/2 ML-1 GM VIAL) IVPB ONE ×2 (10:00→10:45)
[2018-11-23] MEDS ORDERED: CALCIUM CHLORIDE 10% 1 GM/10 ML *VIAL IVPB ONE (10:10)
[2018-11-23] MEDS ORDERED: CALCIUM GLUCONATE 10% - 1,000 MG/10 ML VIAL IVPB ONE ×2 (10:30→20:45)
--- NOTE | 2018-11-23 11:59 | PN.GI ---
GI Progress Note Subjective: GI NOte: Still having diarrhea but refused the Imodium. Cultures still pending. Mg and Ca still require replacement. Had some wheezing earlier but this has resolved. Feeling better. - Objective Vital Signs: Vital Signs Temperature 97.4 F L 11/23/18 08:13 Pulse Rate 68 11/23/18 08:13 Respiratory Rate 16 11/23/18 08:13 Blood Pressure 110/53 L 11/23/18 08:13 O2 Sat by Pulse Oximetry (%) 99 11/22/18 21:00 Microbiology Laboratory Tests 11/23/18 11/23/18 11/23/18 05:30 05:30 05:30 WBC 8.1 Hct 27.7 L Retic Count Potassium 4.0 Carbon Dioxide 16 L BUN 16 Creatinine 1.1 Calcium 5.1 L* Phosphorus 1.9 L Magnesium 1.6 L C-Reactive Protein 9.0 H Tiss Transglutamin IgG Pending Tiss Transglutamin IgA Pending S.cerevisiae IgG Ab Pending S. cerevisiae IgG/IgA Pending 11/23/18 05:30 WBC Hct Retic Count 1.06 Potassium Carbon Dioxide BUN Creatinine Calcium Phosphorus Magnesium C-Reactive Protein Tiss Transglutamin IgG Tiss Transglutamin IgA S.cerevisiae IgG Ab S. cerevisiae IgG/IgA Constitutional: Calm ...Auscultate: Yes: Normoactive Bowel Sounds ...Palpate: Yes: Soft, Other (nonteder) Labs: CBC, BMP 11/23/18 05:30 11/23/18 05:30 Assessment/Plan Impression: RT enteritis Hypomagnesemia and hypocalcemia Plan: Replace magnesium, calcium and IV fluids. Await ionized Ca and VBG Continue Imodium Fecal elastase and stool for fat pending Lactose free soft diet Will reserve flex sig for persistent diarrhea. Would not risk anesthesia with prolonged QT and current electrolyte imbalance Problem List - Problems (1) Diarrhea Code(s): R19.7 - DIARRHEA, UNSPECIFIED Qualifiers: Diarrhea type: unspecified type Qualified Code(s): R19.7 - Diarrhea, unspecified (2) Syncope Code(s): R55 - SYNCOPE AND COLLAPSE Qualifiers: Syncope type: unspecified Qualified Code(s): R55 - Syncope and collapse (3) Hypocalcemia Code(s): E83.51 - HYPOCALCEMIA (4) Hypomagnesemia Code(s): E83.42 - HYPOMAGNESEMIA (5) Anemia Code(s): D64.9 - ANEMIA, UNSPECIFIED Qualifiers: Anemia type: unspecified type Qualified Code(s): D64.9 - Anemia, unspecified (6) IPMN (intraductal papillary mucinous neoplasm) Code(s): D49.0 - NEOPLASM OF UNSPECIFIED BEHAVIOR OF DIGESTIVE SYSTEM (7) Prostate cancer Code(s): C61 - MALIGNANT NEOPLASM OF PROSTATE (8) Colon adenoma Code(s): D12.6 - BENIGN NEOPLASM OF COLON, UNSPECIFIED (9) Diverticulosis Code(s): K57.90 - DVRTCLOS OF INTEST, PART UNSP, W/O PERF OR ABSCESS W/O BLEED (10) Hiatal hernia with GERD without esophagitis Code(s): K44.9 - DIAPHRAGMATIC HERNIA WITHOUT OBSTRUCTION OR GANGRENE; K21.9 - GASTRO-ESOPHAGEAL REFLUX DISEASE WITHOUT ESOPHAGITIS (11) Vascular ectasia of duodenum Code(s): K31.89 - OTHER DISEASES OF STOMACH AND DUODENUM (12) History of coronary artery stent placement Code(s): Z95.5 - PRESENCE OF CORONARY ANGIOPLASTY IMPLANT AND GRAFT (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
[2018-11-23] MEDS ORDERED: DEXTROSE 5%-0.45% SALINE 1,000 ML IV SCH (12:03)
[2018-11-23] MEDS: CALCIUM (OYSTER SHELL) 500 MG TABLET (FP) PO SCH ×3 (13:28→21:40)
[2018-11-23 13:32] LABS: VENOUS PH 7.21 (7.31-7.41)
--- NOTE | 2018-11-23 16:04 | PN ---
Progress Note (short form) - Note Progress Note: Current Medications Amino Acids (Prosource No Carb Liquid Pkt) 30 ml PO BID@0800,1730 [facility] Last Admin: 11/23/18 08:12 Dose: 30 ml Calcium Carbonate (Os-Oleg 500mg -) 500 mg PO QID [facility] Last Admin: 11/23/18 13:28 Dose: 500 mg Dextrose/Sodium Chloride (D5-1/2ns -) 1,000 mls @ 42 mls/hr IV ASDIR [facility] Loperamide HCl (Imodium -) 2 mg PO Q8H PRN PRN Reason: DIARRHEA Metoprolol Succinate (Toprol Xl -) 25 mg PO DAILY [facility] Last Admin: 11/23/18 09:15 Dose: 25 mg Pantoprazole Sodium (Protonix -) 20 mg PO BID [facility] Last Admin: 11/23/18 09:15 Dose: 20 mg Ranolazine (Ranexa -) 500 mg PO BID [facility] Last Admin: 11/23/18 09:15 Dose: 500 mg Laboratory Results - last 24 hr 11/22/18 11/23/18 11/23/18 18:25 05:30 05:30 WBC 8.1 RBC 3.20 L Hgb 9.2 L Hct 27.7 L MCV 86.6 MCH 28.7 MCHC 33.2 RDW 19.2 H Plt Count 193 MPV 8.1 Absolute Neuts (auto) 5.6 Neutrophils % 68.7 Lymphocytes % 13.7 D Monocytes % 12.9 H Eosinophils % 4.5 Basophils % 0.2 Nucleated RBC % 0 Retic Count VBG pH POC VBG pCO2 POC VBG pO2 VBG HCO3 VBG O2 Sat (Abe) VBG Base Excess Sodium 144 Potassium 4.0 Chloride 119 H Carbon Dioxide 16 L Anion Gap 9 BUN 16 Creatinine 1.1 Creat Clearance w eGFR 63.62 Random Glucose 98 Lactic Acid Calcium 5.1 L* 5.1 L* Phosphorus 1.9 L Magnesium 1.3 L 1.6 L LD Total 242 C-Reactive Protein 9.0 H 11/23/18 11/23/18 11/23/18 05:30 11:05 12:12 WBC RBC Hgb Hct MCV MCH MCHC RDW Plt Count MPV Absolute Neuts (auto) Neutrophils % Lymphocytes % Monocytes % Eosinophils % Basophils % Nucleated RBC % Retic Count 1.06 VBG pH 7.21 L POC VBG pCO2 40.0 L POC VBG pO2 73.0 H VBG HCO3 15.5 L VBG O2 Sat (Abe) 91.6 H VBG Base Excess -11.2 L Sodium Potassium Chloride Carbon Dioxide Anion Gap BUN Creatinine Creat Clearance w eGFR Random Glucose Lactic Acid 1.3 Calcium Phosphorus Magnesium LD Total C-Reactive Protein Vital Signs Temperature 97.6 F 11/23/18 10:00 Pulse Rate 64 11/23/18 10:00 Respiratory Rate 16 11/23/18 10:00 Blood Pressure 117/54 L 11/23/18 10:00 O2 Sat by Pulse Oximetry (%) 99 11/23/18 10:00 CC; felt some "wheezing" today; still having some watery stools; no abd pains, n -v ``````````````````````````````` skin--some pallor eyes--anicteric lungs--no overt wheezing or other congregational sounds heard heart--RR abd--soft, BS+ ext--some edema of the UE's neuro--awake; alert; coherent, Cognition intact; no focal deficits ``````````````````````````````````````````` Summ > "wheezing"--no such sounds heard on ausc of lungs; but will lower fluid rate and check CXR > Diarrhea--waning down but still having watery stools (see GI note); w/u in progress > Low Mag/calcium--2nd fluid losses; will replenish as needed (corrected calcium should be over 6.0) > anemia--NC/Nc; tested (+) for OB (as per GI), but doubt that he has lost enough to explain the lower counts; thus, may also be due to inflammatory process (has high CRP); and even hemo dilution MURALI: check erial CBC > Htn--BP has been well WNL w/o use of ARB and CCB > low protein state--due to copious GI fluid losses > prostate cancer--w/o metastatic disease; has had to suspend course of RT which had been in progress [employer] DRAW[employer] IN. 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 Code(s): I13.10 - HYP HRT & CHR KDNY DIS W/O HRT FAIL, W STG 1-4/UNSP CHR KDNY Qualifiers: Chronic kidney disease stage: stage 1 (5) Prolonged Q-T interval on ECG Code(s): R94.31 - ABNORMAL ELECTROCARDIOGRAM [ECG] [EKG] (6) Diarrhea Code(s): R19.7 - DIARRHEA, UNSPECIFIED Qualifiers: Diarrhea type: unspecified type Qualified Code(s): R19.7 - Diarrhea, unspecified (7) Anemia Code(s): D64.9 - ANEMIA, UNSPECIFIED Qualifiers: Anemia type: unspecified type Qualified Code(s): D64.9 - Anemia, unspecified (8) Hypomagnesemia Code(s): E83.42 - HYPOMAGNESEMIA (9) History of coronary artery stent placement Code(s): Z95.5 - PRESENCE OF CORONARY ANGIOPLASTY IMPLANT AND GRAFT
[2018-11-23] MEDS ORDERED: NAPH,MB-DB/K PH,MBDB POWDER PACKET PO ONE (16:06)
[2018-11-23] MEDS: LOPERAMIDE HCL 2 MG CAPSULE PO PRN (16:26)
[2018-11-23 17:35] LABS: CALCIUM 5.4 mg/dL (8.5-10.1)
[2018-11-24 05:59] LABS: BASO % 0.4 % (0-2.0); EOS % 5.6 % (0-4.5); HEMATOCRIT 27.7 % (35.4-49); HEMOGLOBIN 9.1 GM/dL (11.7-16.9); LYMPH % 13.7 % (8-40); MCH 28.4 pg (25.7-33.7); MCHC 32.8 g/dl (32.0-35.9); MEAN CELL VOLUME 86.5 fl (80-96); MEAN PLT VOLUME 8.3 fl (7.5-11.1); MONO % 13.8 % (3.8-10.2); NEUT % 66.5 % (42.8-82.8); PLATELET COUNT 170 K/MM3 (134-434); RDW 19.7 % (11.9-15.9); WHITE BLOOD COUNT 6.9 K/mm3 (4.0-10.0)
[2018-11-24 06:50] LABS: ALK PHOS 94 U/L (45-117); ANION GAP 8 MMOL/L (8-16); BILIRUBIN,TOTAL 0.5 mg/dL (0.2-1); BLOOD UREA NITROGEN 16 mg/dL (7-18); CHLORIDE 117 mmol/L (98-107); CO2 17 mmol/L (21-32); CREATININE 0.9 mg/dL (0.55-1.3); GLUCOSE,RANDOM 84 mg/dL (74-106); MAGNESIUM 1.5 mg/dL (1.8-2.4); PHOSPHOROUS 1.8 mg/dL (2.5-4.9); SGOT/AST 19 U/L (15-37); SGPT/ALT 13 U/L (13-61); SODIUM 142 mmol/L (136-145); TOT PROT 4.4 g/dl (6.4-8.2)
[2018-11-24] MEDS: AMINO ACIDS/PROTEIN HYDROLYS 30 ML LIQUID.PKT PO SCH ×2 (08:34→16:57)
[2018-11-24 09:01] LABS: CALCIUM 5.5 mg/dL (8.5-10.1)
[2018-11-24] MEDS ORDERED: MAGNESIUM CL 64 MG TABLET.SA PO SCH (10:00)
[2018-11-24] MEDS: NAPH,MB-DB/K PH,MBDB POWDER PACKET PO SCH ×2 (10:08→22:05)
[2018-11-24] MEDS: metoPROLOL SUCCINATE 25 MG TAB.SR.24H (FP) PO SCH (10:08)
[2018-11-24] MEDS: RANOLAZINE E.R. 500 MG TABLET (FP) PO SCH ×2 (10:08→22:03)
[2018-11-24] MEDS: PANTOPRAZOLE 20 MG TABLET (FP) PO SCH ×2 (10:08→22:03)
[2018-11-24] MEDS: CALCIUM (OYSTER SHELL) 500 MG TABLET (FP) PO SCH ×4 (10:08→22:04)
[2018-11-24] MEDS ORDERED: MAGNESIUM SULF 50% (8.12 MEQ/2 ML-1 GM VIAL) IVPB ONE ×2 (10:15→21:30)
[2018-11-24] MEDS ORDERED: CALCIUM GLUCONATE 10% - 1,000 MG/10 ML VIAL IVPB ONE (10:15)
[2018-11-24] MEDS: LOPERAMIDE HCL 2 MG CAPSULE PO PRN (11:55)
--- NOTE | 2018-11-24 13:37 | EKG ---
Test Reason : Blood Pressure : / mmHG Vent. Rate : 057 BPM Atrial Rate : 057 BPM P-R Int : 204 ms QRS Dur : 080 ms QT Int : 526 ms P-R-T Axes : 007 -01 052 degrees QTc Int : 511 ms SINUS BRADYCARDIA PROLONGED QT ABNORMAL ECG WHEN COMPARED WITH ECG OF 23-NOV-2018 09:33, [place] INTERVAL HAS DECREASED Confirmed by TEDDY TRAN MD ([id number]) on 11/24/2018 1:36:56 PM Referred By: Confirmed By:TEDDY TRAN MD
--- NOTE | 2018-11-24 14:38 | PN ---
Progress Note (short form) - Note Progress Note: Current Medications Amino Acids (Prosource No Carb Liquid Pkt) 30 ml PO BID@0800,1730 [facility] Last Admin: 11/24/18 08:34 Dose: 30 ml Calcium Carbonate (Os-Oleg 500mg -) 500 mg PO QID [facility] Last Admin: 11/24/18 10:08 Dose: 500 mg Dextrose/Sodium Chloride (D5-1/2ns -) 1,000 mls @ 42 mls/hr IV ASDIR [facility] Last Admin: 11/23/18 16:31 Dose: 42 mls/hr Loperamide HCl (Imodium -) 2 mg PO Q8H PRN PRN Reason: DIARRHEA Last Admin: 11/24/18 11:55 Dose: 2 mg Magnesium Chloride (Slow-Mag -) 64 mg PO DAILY [facility] Last Admin: 11/24/18 11:46 Dose: 64 mg Metoprolol Succinate (Toprol Xl -) 25 mg PO DAILY [facility] Last Admin: 11/24/18 10:08 Dose: 25 mg Mirtazapine (Remeron -) 7.5 mg PO [facility] Pantoprazole Sodium (Protonix -) 20 mg PO BID [facility] Last Admin: 11/24/18 10:08 Dose: 20 mg Potassium Phos/Sodium Phos (Phos-Nak Packet -) 1 packet PO BID [facility] Last Admin: 11/24/18 10:08 Dose: 1 packet Ranolazine (Ranexa -) 500 mg PO BID [facility] Last Admin: 11/24/18 10:08 Dose: 500 mg Laboratory Results - last 24 hr 11/23/18 11/24/18 11/24/18 15:45 05:30 05:30 WBC 6.9 RBC 3.20 L Hgb 9.1 L Hct 27.7 L MCV 86.5 MCH 28.4 MCHC 32.8 RDW 19.7 H Plt Count 170 MPV 8.3 Absolute Neuts (auto) 4.6 Neutrophils % 66.5 Lymphocytes % 13.7 Monocytes % 13.8 H Eosinophils % 5.6 H Basophils % 0.4 Nucleated RBC % 0 Sodium 142 Potassium 4.0 Chloride 117 H Carbon Dioxide 17 L Anion Gap 8 BUN 16 Creatinine 0.9 Creat Clearance w eGFR 80.20 Random Glucose 84 Calcium 5.4 L* 5.5 L* Phosphorus 1.8 L Magnesium 2.0 1.5 L Total Bilirubin 0.5 AST 19 ALT 13 Alkaline Phosphatase 94 C-Reactive Protein 7.2 H Total Protein 4.4 L Albumin 2.0 L Vital Signs Temperature 98.1 F 11/24/18 10:00 Pulse Rate 59 L 11/24/18 10:00 Respiratory Rate 18 11/24/18 10:00 Blood Pressure 111/44 L 11/24/18 10:00 O2 Sat by Pulse Oximetry (%) 99 11/23/18 21:00 CC; c/o nausea & vom x1 today; fter eating jello; had 2 loose BMs; c/o lack of sleep ``````````````````````````````` skin--pallor; IV site okay eyes--anicteric lungs--clear heart--RR abd--soft, BS+, NT ext--some edema of the UE's neuro--awake; alert; coherent, anxious, Cognition intact; no focal deficits ``````````````````````````````````````````` CXR--NAP EKG= Sinus jovan; prolonged QT ````````````````````````````` Summ > Diarrhea--had 2 watery stools today; no blood. So far stool cultures are negative but more tests still outstanding > nausea/vom--x1; cause unclear, could be 2nd to current disease state; denies heart-burn (which he's had chronically--and on PPI) > Low Mag/calcium--2nd GI fluid losses; will replenish as needed (corrected calcium is 7.1) > QT prolongation--on EKG; will need to raise dose of ca++; cont conveyor monitor for now > anemia--NC/Nc; tested (+) for OB (as per GI), but doubt that he has lost enough blood to alone explain the lower counts; thus, may also be due to inflammatory process (has high CRP)PLAN: daily CBCs > Htn--BP has been well WNL w/o use of ARB and CCB > low protein state--due to copious GI fluid losses > feeding difficulties--lack of appetite; will start Mirtazapine > insomnia--is a light sleeper, and finds it hard to fall asleep once awaken: RX Mirtazapine > prostate cancer--w/o metastatic disease; has had to suspend course of RT which had been in progress PULMONARY PHYSICIAN. 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 Code(s): I13.10 - HYP HRT & CHR KDNY DIS W/O HRT FAIL, W STG 1-4/UNSP CHR KDNY Qualifiers: Chronic kidney disease stage: stage 1 (5) Prolonged Q-T interval on ECG Code(s): R94.31 - ABNORMAL ELECTROCARDIOGRAM [ECG] [EKG] (6) Diarrhea Code(s): R19.7 - DIARRHEA, UNSPECIFIED Qualifiers: Diarrhea type: unspecified type Qualified Code(s): R19.7 - Diarrhea, unspecified (7) Anemia Code(s): D64.9 - ANEMIA, UNSPECIFIED Qualifiers: Anemia type: unspecified type Qualified Code(s): D64.9 - Anemia, unspecified (8) Hypomagnesemia Code(s): E83.42 - HYPOMAGNESEMIA (9) History of coronary artery stent placement Code(s): Z95.5 - PRESENCE OF CORONARY ANGIOPLASTY IMPLANT AND GRAFT
[2018-11-24 15:13] LABS: TRANSGLUTAMINASE IGA 3 U/mL (0-3); TRANSGLUTAMINASE IGG < 2 U/mL (0-5)
[2018-11-24] MEDS: DEXTROSE 5%-0.45% SALINE 1,000 ML IV SCH (16:56)
[2018-11-24 19:49] LABS: MAGNESIUM 1.7 mg/dL (1.8-2.4)
[2018-11-24 19:54] LABS: CALCIUM 5.9 mg/dL (8.5-10.1)
[2018-11-24] MEDS ORDERED: MAGNESIUM SULF 50% (8.12 MEQ/2 ML-1 GM VIAL) ONE (21:37)
[2018-11-24] MEDS ORDERED: PT OWN MED DRAWER 7, Y5N ONE ×2 (21:38→21:39)
[2018-11-24] MEDS ORDERED: MIRTAZAPINE 15 MG TABLET (FP) PO SCH (22:00)
[2018-11-24] MEDS: MAGNESIUM CL 64 MG TABLET.SA PO SCH (22:05)
--- NOTE | 2018-11-24 22:11 | PN.GI ---
GI Progress Note Subjective: GI NOte: Had only one BM today which finally had some form. Stool for WBCs reveals no polys and C diff toxin is negative which argue strongly against an infectious etiology. Ionized calcium was very low and is slow to correct. Mg is up to 1.7. - Objective Vital Signs: Vital Signs Temperature 98 F 11/24/18 17:58 Pulse Rate 98 H 11/24/18 17:58 Respiratory Rate 18 11/24/18 17:58 Blood Pressure 120/52 L 11/24/18 17:58 O2 Sat by Pulse Oximetry (%) 99 11/24/18 10:00 Microbiology 11/22/18 18:10 Stool Clostridioides difficile Antigen - Final 11/22/18 18:10 Stool Escherichia coli 0157 Culture - Final NO GROWTH OF VIBRIO SPECIES OBTAINED NO GROWTH OF E COLI 0157 OBTAINED 11/22/18 18:10 Stool Yersinia Culture - Preliminary NO ENTERIC PATHOGENS, 24 HOURS, ON PRIMARY PLATES NO ENTERIC PATHOGENS, 24 HOURS, ON PRIMARY PLATES Laboratory Tests 11/23/18 11/23/18 11/24/18 11:05 12:12 05:30 Hgb 9.1 L VBG pH 7.21 L Calcium Ionized Calcium 3.4 L Magnesium 11/24/18 18:35 Hgb VBG pH Calcium 5.9 L* Ionized Calcium Magnesium 1.7 L CBC, [facility] 11/24/18 05:30 11/24/18 05:30 Constitutional: Calm ...Auscultate: Yes: Normoactive Bowel Sounds ...Palpate: Yes: Soft, Other (nontender) Labs: CBC, [facility] 11/24/18 05:30 11/24/18 05:30 Assessment/Plan Impression: RT enteritis Hypomagnesemia and hypocalcemia Plan: Replace magnesium, calcium and IV fluids. Continue Imodium Will reserve flex sig for persistent diarrhea. Would not risk anesthesia with prolonged QT and current electrolyte imbalance Problem List - Problems (1) Diarrhea Code(s): R19.7 - DIARRHEA, UNSPECIFIED Qualifiers: Diarrhea type: unspecified type Qualified Code(s): R19.7 - Diarrhea, unspecified (2) Syncope Code(s): R55 - SYNCOPE AND COLLAPSE Qualifiers: Syncope type: unspecified Qualified Code(s): R55 - Syncope and collapse (3) Hypocalcemia Code(s): E83.51 - HYPOCALCEMIA (4) Hypomagnesemia Code(s): E83.42 - HYPOMAGNESEMIA (5) Anemia Code(s): D64.9 - ANEMIA, UNSPECIFIED Qualifiers: Anemia type: unspecified type Qualified Code(s): D64.9 - Anemia, unspecified (6) IPMN (intraductal papillary mucinous neoplasm) Code(s): D49.0 - NEOPLASM OF UNSPECIFIED BEHAVIOR OF DIGESTIVE SYSTEM (7) Prostate cancer Code(s): C61 - MALIGNANT NEOPLASM OF PROSTATE (8) Colon adenoma Code(s): D12.6 - BENIGN NEOPLASM OF COLON, UNSPECIFIED (9) Diverticulosis Code(s): K57.90 - DVRTCLOS OF INTEST, PART UNSP, W/O PERF OR ABSCESS W/O BLEED (10) Hiatal hernia with GERD without esophagitis Code(s): K44.9 - DIAPHRAGMATIC HERNIA WITHOUT OBSTRUCTION OR GANGRENE; K21.9 - GASTRO-ESOPHAGEAL REFLUX DISEASE WITHOUT ESOPHAGITIS (11) Vascular ectasia of duodenum Code(s): K31.89 - OTHER DISEASES OF STOMACH AND DUODENUM (12) History of coronary artery stent placement Code(s): Z95.5 - PRESENCE OF CORONARY ANGIOPLASTY IMPLANT AND GRAFT (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
[2018-11-25 06:04] LABS: HEMATOCRIT 27.4 % (35.4-49); HEMOGLOBIN 9.1 GM/dL (11.7-16.9); MCH 28.8 pg (25.7-33.7); MCHC 33.2 g/dl (32.0-35.9); MEAN CELL VOLUME 86.7 fl (80-96); MEAN PLT VOLUME 8.4 fl (7.5-11.1); PLATELET COUNT 171 K/MM3 (134-434); RBC 3.16 M/mm3 (4.00-5.60); RDW 19.2 % (11.9-15.9); WHITE BLOOD COUNT 5.6 K/mm3 (4.0-10.0)
[2018-11-25 06:31] LABS: ANION GAP 6 MMOL/L (8-16); BLOOD UREA NITROGEN 15 mg/dL (7-18); CHLORIDE 118 mmol/L (98-107); CO2 20 mmol/L (21-32); CREATININE 0.9 mg/dL (0.55-1.3); GLUCOSE,RANDOM 89 mg/dL (74-106); MAGNESIUM 1.9 mg/dL (1.8-2.4); PHOSPHOROUS 1.8 mg/dL (2.5-4.9); POTASSIUM 4.3 mmol/L (3.5-5.1); SODIUM 144 mmol/L (136-145)
[2018-11-25 07:11] LABS: STOOL OSMO 471 mOsmol/kg (Not Estab.)
[2018-11-25 07:40] LABS: CALCIUM 5.7 mg/dL (8.5-10.1)
[2018-11-25] MEDS ORDERED: CALCIUM GLUCONATE 10% - 1,000 MG/10 ML VIAL IVPB ONE (08:48)
[2018-11-25] MEDS ORDERED: SODIUM BICARBONATE 325 MG TABLET PO ONE (08:52)
[2018-11-25] MEDS: CALCIUM (OYSTER SHELL) 500 MG TABLET (FP) PO SCH ×3 (09:26→17:39)
[2018-11-25] MEDS: NAPH,MB-DB/K PH,MBDB POWDER PACKET PO SCH ×2 (09:26→21:50)
[2018-11-25] MEDS: PANTOPRAZOLE 20 MG TABLET (FP) PO SCH (09:26)
[2018-11-25] MEDS: AMINO ACIDS/PROTEIN HYDROLYS 30 ML LIQUID.PKT PO SCH ×2 (09:27→17:39)
[2018-11-25] MEDS: RANOLAZINE E.R. 500 MG TABLET (FP) PO SCH ×2 (09:27→21:50)
[2018-11-25] MEDS: metoPROLOL SUCCINATE 25 MG TAB.SR.24H (FP) PO SCH (09:27)
--- NOTE | 2018-11-25 10:33 | EKG ---
Test Reason : Blood Pressure : / mmHG Vent. Rate : 059 BPM Atrial Rate : 059 BPM P-R Int : 240 ms QRS Dur : 088 ms QT Int : 490 ms P-R-T Axes : 053 007 044 degrees QTc Int : 485 ms SINUS BRADYCARDIA WITH 1ST DEGREE A-V BLOCK PROLONGED QT ABNORMAL ECG WHEN COMPARED WITH ECG OF 24-NOV-2018 09:07, [place] INTERVAL HAS INCREASED Confirmed by JESICA ROBERTSON, VANESSA ([id number]) on 11/25/2018 10:33:02 AM Referred By: FELIPA SHARMA Confirmed By:VANESSA MOONEY MD
[2018-11-25] MEDS ORDERED: PT OWN MED DRAWER 7, Y5N ONE ×4 (11:09→22:11)
[2018-11-25] MEDS: MAGNESIUM CL 64 MG TABLET.SA PO SCH (12:49)
--- NOTE | 2018-11-25 15:49 | PN.GI ---
GI Progress Note Subjective: GI NOte: Feeling very poorly. Had only 1 semisolid BM today. Appetite is poor and he vomiting just a few minutes ago, remnants of breakfast. He did not attempt lunch. He tells me that he abundance of oral medications are overwhelming him. I will keep his calcium and magnesium replacements parenteral. I will give Zofran prn. - Objective Vital Signs: Vital Signs Temperature 98.0 F 11/25/18 10:00 Pulse Rate 57 L 11/25/18 10:00 Respiratory Rate 18 11/25/18 10:00 Blood Pressure 111/48 L 11/25/18 10:00 O2 Sat by Pulse Oximetry (%) 100 11/25/18 10:00 Laboratory Tests 11/25/18 11/25/18 11/25/18 05:30 05:30 05:30 WBC 5.6 Hgb 9.1 L Carbon Dioxide 20 L BUN 15 Creatinine 0.9 Calcium 5.7 L* Ionized Calcium Pending Phosphorus 1.8 L Magnesium 1.9 C-Reactive Protein 7.0 H Constitutional: Anxious ...Auscultate: Yes: Normoactive Bowel Sounds ...Palpate: Yes: Soft, Other (nontender) Labs: CBC, BMP 11/25/18 05:30 11/25/18 05:30 Assessment/Plan Impression: RT enteritis Hypomagnesemia and hypocalcemia Vomiting due to enteritis Plan: Zofran Ensue supplements Replace magnesium, calcium parenterally. Stop oral route Continue Imodium Will reserve flex sig for persistent diarrhea. Would not risk anesthesia with prolonged QT and current electrolyte imbalance Dr Manzo will be covering this weekend. Please call him as needed Problem List - Problems (1) Diarrhea Code(s): R19.7 - DIARRHEA, UNSPECIFIED Qualifiers: Diarrhea type: unspecified type Qualified Code(s): R19.7 - Diarrhea, unspecified (2) Syncope Code(s): R55 - SYNCOPE AND COLLAPSE Qualifiers: Syncope type: unspecified Qualified Code(s): R55 - Syncope and collapse (3) Hypocalcemia Code(s): E83.51 - HYPOCALCEMIA (4) Hypomagnesemia Code(s): E83.42 - HYPOMAGNESEMIA (5) Anemia Code(s): D64.9 - ANEMIA, UNSPECIFIED Qualifiers: Anemia type: unspecified type Qualified Code(s): D64.9 - Anemia, unspecified (6) IPMN (intraductal papillary mucinous neoplasm) Code(s): D49.0 - NEOPLASM OF UNSPECIFIED BEHAVIOR OF DIGESTIVE SYSTEM (7) Prostate cancer Code(s): C61 - MALIGNANT NEOPLASM OF PROSTATE (8) Colon adenoma Code(s): D12.6 - BENIGN NEOPLASM OF COLON, UNSPECIFIED (9) Diverticulosis Code(s): K57.90 - DVRTCLOS OF INTEST, PART UNSP, W/O PERF OR ABSCESS W/O BLEED (10) Hiatal hernia with GERD without esophagitis Code(s): K44.9 - DIAPHRAGMATIC HERNIA WITHOUT OBSTRUCTION OR GANGRENE; K21.9 - GASTRO-ESOPHAGEAL REFLUX DISEASE WITHOUT ESOPHAGITIS (11) Vascular ectasia of duodenum Code(s): K31.89 - OTHER DISEASES OF STOMACH AND DUODENUM (12) History of coronary artery stent placement Code(s): Z95.5 - PRESENCE OF CORONARY ANGIOPLASTY IMPLANT AND GRAFT (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
[2018-11-25] MEDS ORDERED: ALBUTEROL SO4 0.083% IH SOL 2.5 MG/3 ML VIAL.NEB. NEB ONE (17:05)
--- NOTE | 2018-11-25 17:05 | PN ---
Progress Note (short form) - Note Progress Note: Current Medications Amino Acids (Prosource No Carb Liquid Pkt) 30 ml PO BID@0800,1730 [facility] Last Admin: 11/25/18 09:27 Dose: 30 ml Calcium Carbonate (Os-Oleg 500mg -) 1,000 mg PO QID [facility] Last Admin: 11/25/18 15:06 Dose: 1,000 mg Calcium Chloride (Calcium Chloride 10% -) 1 gm IVPB BID [facility] Stop: 11/28/18 21:59 Dextrose/Sodium Chloride (D5-1/2ns -) 1,000 mls @ 42 mls/hr IV ASDIR [facility] Last Admin: 11/24/18 16:56 Dose: 42 mls/hr Loperamide HCl (Imodium -) 2 mg PO Q8H PRN PRN Reason: DIARRHEA Last Admin: 11/24/18 11:55 Dose: 2 mg Magnesium Chloride (Slow-Mag -) 64 mg PO BID [facility] Last Admin: 11/25/18 12:49 Dose: 64 mg Metoprolol Succinate (Toprol Xl -) 12.5 mg PO DAILY [facility] Last Admin: 11/25/18 09:27 Dose: Not Given Pantoprazole Sodium (Protonix -) 20 mg PO BID [facility] Last Admin: 11/25/18 09:26 Dose: 20 mg Potassium Phos/Sodium Phos (Phos-Nak Packet -) 1 packet PO BID [facility] Last Admin: 11/25/18 09:26 Dose: 1 packet Ranolazine (Ranexa -) 500 mg PO BID [facility] Last Admin: 11/25/18 09:27 Dose: 500 mg Trimethobenzamide HCl (Tigan -) 300 mg PO ONCE ONE Stop: 11/26/18 06:01 Laboratory Results - last 24 hr 11/22/18 11/23/18 11/23/18 18:10 05:30 11:05 WBC RBC Hgb Hct MCV MCH MCHC RDW Plt Count MPV Sodium Potassium Chloride Carbon Dioxide Anion Gap BUN Creatinine Creat Clearance w eGFR Random Glucose Calcium Ionized Calcium 3.4 L Phosphorus Magnesium C-Reactive Protein Stool Osmolality 471 S.cerevisiae IgG Ab 45.3 H S. cerevisiae IgG/IgA <20.0 11/24/18 11/25/18 11/25/18 18:35 05:30 05:30 WBC 5.6 RBC 3.16 L Hgb 9.1 L Hct 27.4 L MCV 86.7 MCH 28.8 MCHC 33.2 RDW 19.2 H Plt Count 171 MPV 8.4 Sodium 144 Potassium 4.3 Chloride 118 H Carbon Dioxide 20 L Anion Gap 6 L BUN 15 Creatinine 0.9 Creat Clearance w eGFR 80.20 Random Glucose 89 Calcium 5.9 L* 5.7 L* Ionized Calcium Phosphorus 1.8 L Magnesium 1.7 L 1.9 C-Reactive Protein 7.0 H Stool Osmolality S.cerevisiae IgG Ab S. cerevisiae IgG/IgA Vital Signs Temperature 98.0 F 11/25/18 14:00 Pulse Rate 60 11/25/18 14:00 Respiratory Rate 18 11/25/18 14:00 Blood Pressure 120/47 L 11/25/18 14:00 O2 Sat by Pulse Oximetry (%) 100 11/25/18 10:00 CC; c/o nausea & vom x1 again today, emitting gastric secretions only; also c/o gagging & cough ``````````````````````````````` skin--pallor; IV site okay eyes--anicteric; midline lungs--clear heart--RR abd--soft, BS+, NT ext--some edema of the UE's neuro--awake; listless, despondant, good eye contact, follows commands; no focal deficits ``````````````````````````````````````````` Summ > cough--?subjective congestion; obtain CXR; & Neb Tx > altered MS--as described; could be 2nd to multiple array of issues but will check head CT; will stop mirtazapine > Diarrhea--diminishing. So far stool cultures are negative but more tests still outstanding (se GI note) > metab acidosis (mild)--non anion gap; and slowly improved; 2nd watery diarrheal losses > nausea/vom--cause unclear, could be 2nd to current disease state; denies heart -burn (which he's had chronically--and on PPI), noted by GI. 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 Code(s): I13.10 - HYP HRT & CHR KDNY DIS W/O HRT FAIL, W STG 1-4/UNSP CHR KDNY Qualifiers: Chronic kidney disease stage: stage 1 (5) Prolonged Q-T interval on ECG Code(s): R94.31 - ABNORMAL ELECTROCARDIOGRAM [ECG] [EKG] (6) Diarrhea Code(s): R19.7 - DIARRHEA, UNSPECIFIED Qualifiers: Diarrhea type: unspecified type Qualified Code(s): R19.7 - Diarrhea, unspecified (7) Anemia Code(s): D64.9 - ANEMIA, UNSPECIFIED Qualifiers: Anemia type: unspecified type Qualified Code(s): D64.9 - Anemia, unspecified (8) Hypomagnesemia Code(s): E83.42 - HYPOMAGNESEMIA (9) History of coronary artery stent placement Code(s): Z95.5 - PRESENCE OF CORONARY ANGIOPLASTY IMPLANT AND GRAFT
[2018-11-25] MEDS: DEXTROSE 5%-0.45% SALINE 1,000 ML IV SCH (17:39)
[2018-11-25] MEDS: ONDANSETRON 4 MG/2 ML VIAL IVPB PRN (18:08)
--- NOTE | 2018-11-25 20:29 | PN ---
Progress Note (short form) - Note Progress Note: <<<<<<<<<<<<<<<< ADDENDUM >>>>>>>>>>>>>>>>>>> Will switch IVF to d5NS as his diastolic BP is below 50 on multiple readings; which could account for his symptoms of general weakness. Thus, will hope to raise the DBP to at least over 50, the CXR taken today does not speak for vascular congestion and is read as being unchanged from the previous film. ..................... End. 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 Code(s): I13.10 - HYP HRT & CHR KDNY DIS W/O HRT FAIL, W STG 1-4/UNSP CHR KDNY Qualifiers: Chronic kidney disease stage: stage 1 (5) Prolonged Q-T interval on ECG Code(s): R94.31 - ABNORMAL ELECTROCARDIOGRAM [ECG] [EKG] (6) Diarrhea Code(s): R19.7 - DIARRHEA, UNSPECIFIED Qualifiers: Diarrhea type: unspecified type Qualified Code(s): R19.7 - Diarrhea, unspecified (7) Anemia Code(s): D64.9 - ANEMIA, UNSPECIFIED Qualifiers: Anemia type: unspecified type Qualified Code(s): D64.9 - Anemia, unspecified (8) Hypomagnesemia Code(s): E83.42 - HYPOMAGNESEMIA (9) History of coronary artery stent placement Code(s): Z95.5 - PRESENCE OF CORONARY ANGIOPLASTY IMPLANT AND GRAFT
[2018-11-25] MEDS: DEXTROSE 5%-NORMAL SALINE 1,000 ML IV SCH (20:56)
[2018-11-25] MEDS: CALCIUM CHLORIDE 10% 1 GM/10 ML *VIAL IVPB SCH (21:50)
[2018-11-25 21:57] LABS: ANION GAP 6 MMOL/L (8-16); BLOOD UREA NITROGEN 15 mg/dL (7-18); CHLORIDE 114 mmol/L (98-107); CO2 21 mmol/L (21-32); CREATININE 0.9 mg/dL (0.55-1.3); GLUCOSE,RANDOM 103 mg/dL (74-106); POTASSIUM 5.4 mmol/L (3.5-5.1); SODIUM 141 mmol/L (136-145)
[2018-11-25 22:00] LABS: CALCIUM 6.4 mg/dL (8.5-10.1)
[2018-11-25] MEDS ORDERED: MELATONIN 5 MG TABLETS PO ONE (22:19)
[2018-11-26] MEDS ORDERED: TRIMETHOBENZAMIDE HCL 300 MG CAPSULE PO ONE (06:00)
[2018-11-26 08:27] LABS: ALBUMIN 2.2 g/dl (3.4-5.0); ALK PHOS 112 U/L (45-117); ANION GAP 7 MMOL/L (8-16); BILIRUBIN,TOTAL 0.5 mg/dL (0.2-1); BLOOD UREA NITROGEN 15 mg/dL (7-18); CHLORIDE 114 mmol/L (98-107); CO2 20 mmol/L (21-32); GLUCOSE,RANDOM 86 mg/dL (74-106); MAGNESIUM 1.8 mg/dL (1.8-2.4); POTASSIUM 5.1 mmol/L (3.5-5.1); SGOT/AST 18 U/L (15-37); SGPT/ALT 13 U/L (13-61); SODIUM 142 mmol/L (136-145); TOT PROT 4.8 g/dl (6.4-8.2)
[2018-11-26 09:19] LABS: CALCIUM 6.7 mg/dL (8.5-10.1)
[2018-11-26] MEDS ORDERED: PT OWN MED DRAWER 7, Y5N ONE ×3 (09:47→11:30)
[2018-11-26] MEDS: PANTOPRAZOLE SODIUM 40 MG VIAL IVPUSH SCH (10:25)
[2018-11-26] MEDS: NAPH,MB-DB/K PH,MBDB POWDER PACKET PO SCH ×2 (10:25→22:03)
[2018-11-26] MEDS: metoPROLOL SUCCINATE 25 MG TAB.SR.24H (FP) PO SCH (10:25)
[2018-11-26] MEDS: AMINO ACIDS/PROTEIN HYDROLYS 30 ML LIQUID.PKT PO SCH ×2 (10:25→17:48)
[2018-11-26] MEDS: RANOLAZINE E.R. 500 MG TABLET (FP) PO SCH ×2 (10:26→22:02)
--- NOTE | 2018-11-26 13:23 | PN ---
Progress Note (short form) - Note Progress Note: Current Medications Amino Acids (Prosource No Carb Liquid Pkt) 30 ml PO BID@0800,1730 [facility] Last Admin: 11/26/18 10:25 Dose: 30 ml Calcium Chloride (Calcium Chloride 10% -) 1 gm IVPB BID [facility] Stop: 11/28/18 21:59 Last Admin: 11/25/18 21:50 Dose: 1 gm Dextrose/Sodium Chloride (D5-Ns -) 1,000 mls @ 50 mls/hr IV ASDIR [facility] Last Admin: 11/25/18 20:56 Dose: 50 mls/hr Loperamide HCl (Imodium -) 2 mg PO Q8H PRN PRN Reason: DIARRHEA Last Admin: 11/24/18 11:55 Dose: 2 mg Metoprolol Succinate (Toprol Xl -) 12.5 mg PO DAILY [facility] Last Admin: 11/26/18 10:25 Dose: 12.5 mg Ondansetron HCl (Zofran Injection) 8 mg IVPB Q6H PRN PRN Reason: NAUSEA Last Admin: 11/25/18 18:08 Dose: 8 mg Pantoprazole Sodium (Protonix Iv) 20 mg IVPUSH DAILY [facility] Last Admin: 11/26/18 10:25 Dose: 20 mg Potassium Phos/Sodium Phos (Phos-Nak Packet -) 1 packet PO BID [facility] Last Admin: 11/26/18 10:25 Dose: 1 packet Ranolazine (Ranexa -) 500 mg PO BID [facility] Last Admin: 11/26/18 10:26 Dose: 500 mg Laboratory Results - last 24 hr 11/25/18 11/26/18 20:00 06:00 Sodium 141 142 Potassium 5.4 H 5.1 Chloride 114 H 114 H Carbon Dioxide 21 20 L Anion Gap 6 L 7 L BUN 15 15 Creatinine 0.9 1.0 Creat Clearance w eGFR 80.20 71.02 Random Glucose 103 86 Calcium 6.4 L* 6.7 L* Magnesium 1.8 Total Bilirubin 0.5 AST 18 ALT 13 Alkaline Phosphatase 112 Total Protein 4.8 L Albumin 2.2 L Vital Signs Temperature 97.9 F 11/26/18 06:00 Pulse Rate 60 11/26/18 06:00 Respiratory Rate 20 11/26/18 06:00 Blood Pressure 132/51 L 11/26/18 06:00 O2 Sat by Pulse Oximetry (%) 100 11/25/18 21:00 CC; feels better today; still having some loose BM but only 1 episode this AM; no abd pains, n-v, wheezing ``````````````````````````````` skin--pallor; IV site okay eyes--anicteric; midline lungs--clear heart--RR abd--soft, BS+, NT ext--some edema of the UE's neuro--awake; alert, good eye contact, follows commands; no focal deficits ``````````````````````````````````````````` Summ > cough--resolved; CXR with NAP; wheezing helped by neb Tx > altered MS--back to baseline; fully alert, head CT is negative. Could be ill effects of Mirtazapine (stopped) > Diarrhea--diminishing. So far stool cultures are negative but more tests still outstanding (se GI note) > metab acidosis (mild)--non anion gap; and slowly improved; 2nd watery diarrheal losses > nausea/vom--resolved today > Low Mag/calcium--will replenish as needed (corrected calcium is 7.1); calcium level approaching target. 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 Code(s): I13.10 - HYP HRT & CHR KDNY DIS W/O HRT FAIL, W STG 1-4/UNSP CHR KDNY Qualifiers: Chronic kidney disease stage: stage 1 (5) Prolonged Q-T interval on ECG Code(s): R94.31 - ABNORMAL ELECTROCARDIOGRAM [ECG] [EKG] (6) Diarrhea Code(s): R19.7 - DIARRHEA, UNSPECIFIED Qualifiers: Diarrhea type: unspecified type Qualified Code(s): R19.7 - Diarrhea, unspecified (7) Anemia Code(s): D64.9 - ANEMIA, UNSPECIFIED Qualifiers: Anemia type: unspecified type Qualified Code(s): D64.9 - Anemia, unspecified (8) Hypomagnesemia Code(s): E83.42 - HYPOMAGNESEMIA (9) History of coronary artery stent placement Code(s): Z95.5 - PRESENCE OF CORONARY ANGIOPLASTY IMPLANT AND GRAFT
[2018-11-26] MEDS: CALCIUM CHLORIDE 10% 1 GM/10 ML *VIAL IVPB SCH (14:07)
[2018-11-26 20:02] LABS: ANION GAP 6 MMOL/L (8-16); BLOOD UREA NITROGEN 13 mg/dL (7-18); CHLORIDE 113 mmol/L (98-107); CO2 21 mmol/L (21-32); CREATININE 0.9 mg/dL (0.55-1.3); GLUCOSE,RANDOM 93 mg/dL (74-106); MAGNESIUM 1.7 mg/dL (1.8-2.4); POTASSIUM 4.5 mmol/L (3.5-5.1); SODIUM 140 mmol/L (136-145)
[2018-11-26 20:12] LABS: CALCIUM 6.4 mg/dL (8.5-10.1)
[2018-11-26] MEDS: CALCIUM GLUCONATE 10% - 1,000 MG/10 ML VIAL IVPB SCH (22:03)
[2018-11-26] MEDS: DEXTROSE 5%-NORMAL SALINE 1,000 ML IV SCH (22:03)
[2018-11-27] MEDS ORDERED: MELATONIN 5 MG TABLETS PO ONE ×2 (00:12→21:30)
[2018-11-27] MEDS ORDERED: MAGNESIUM SULF 50% (8.12 MEQ/2 ML-1 GM VIAL) IVPB ONE (00:45)
[2018-11-27] MEDS ORDERED: WATER IVPB ONE (00:45)
[2018-11-27] MEDS ORDERED: MAGNESIUM SULFATE IVPB ONE (00:45)
[2018-11-27] MEDS ORDERED: DEXTROSE 5% IVPB ONE (00:45)
[2018-11-27 07:55] LABS: HEMATOCRIT 27.7 % (35.4-49); HEMOGLOBIN 9.2 GM/dL (11.7-16.9); MCH 28.6 pg (25.7-33.7); MCHC 33.3 g/dl (32.0-35.9); MEAN CELL VOLUME 86.1 fl (80-96); MEAN PLT VOLUME 8.7 fl (7.5-11.1); PLATELET COUNT 197 K/MM3 (134-434); RBC 3.21 M/mm3 (4.00-5.60); RDW 19.1 % (11.9-15.9); WHITE BLOOD COUNT 8.1 K/mm3 (4.0-10.0)
[2018-11-27 08:04] LABS: ANION GAP 6 MMOL/L (8-16); BLOOD UREA NITROGEN 14 mg/dL (7-18); CHLORIDE 111 mmol/L (98-107); CO2 21 mmol/L (21-32); CREATININE 0.9 mg/dL (0.55-1.3); GLUCOSE,RANDOM 86 mg/dL (74-106); MAGNESIUM 1.8 mg/dL (1.8-2.4); POTASSIUM 4.7 mmol/L (3.5-5.1); SODIUM 138 mmol/L (136-145)
[2018-11-27 08:31] LABS: CALCIUM 6.5 mg/dL (8.5-10.1)
[2018-11-27] MEDS: AMINO ACIDS/PROTEIN HYDROLYS 30 ML LIQUID.PKT PO SCH ×2 (08:53→17:59)
[2018-11-27] MEDS: PANTOPRAZOLE SODIUM 40 MG VIAL IVPUSH SCH (09:01)
[2018-11-27] MEDS: CALCIUM GLUCONATE 10% - 1,000 MG/10 ML VIAL IVPB SCH ×2 (09:01→22:05)
[2018-11-27] MEDS: RANOLAZINE E.R. 500 MG TABLET (FP) PO SCH ×2 (09:02→22:09)
[2018-11-27] MEDS: NAPH,MB-DB/K PH,MBDB POWDER PACKET PO SCH ×2 (09:02→22:08)
[2018-11-27] MEDS: metoPROLOL SUCCINATE 25 MG TAB.SR.24H (FP) PO SCH (10:59)
--- NOTE | 2018-11-27 12:26 | PN ---
Progress Note (short form) - Note Progress Note: Covering Dr Johnson patient seen and examined at bedside in attendance reports no BM so far today reports "pull left chest muscle" when pulling himself out of bed pain is reproducible and aggravated only with deep breathing in Bed NAD Vital Signs Period Temp Pulse Resp BP Sys/Malhotra Pulse Ox Last 24 Hr 97.6 F-98.0 F 56-61 18-20 117-140/46-78 98-100 neck supple heart S1/S2 anterior chest wall tenderness with applied pressure Lungs clear bilat abd soft no tenderness elicited BS + X4Q CBC, BMP 11/27/18 05:30 11/27/18 05:30 Microbiology 11/22/18 18:10 Stool Clostridioides difficile Antigen - Final 11/22/18 18:10 Stool Clostridioides difficile Toxin Assay - Final 11/22/18 18:10 Stool Salmonella/Shigella Culture - Final NO GROWTH OF SALMONELLA OR SHIGELLA SPECIES OBTAINED 11/22/18 18:10 Stool Campylobacter Culture - Final NO GROWTH OF CAMPYLOBACTER SPECIES OBTAINED 11/22/18 18:10 Stool Yersinia Culture - Final NO GROWTH OF YERSINIA SPECIES OBTAINED 11/22/18 18:10 Stool Vibrio Culture - Final NO GROWTH OF VIBRIO SPECIES OBTAINED 11/22/18 18:10 Stool Escherichia coli 0157 Culture - Final NO GROWTH OF E COLI 0157 OBTAINED 11/22/18 13:30 Urine - Urine Clean Catch Urine Culture - Final Enterococcus Faecalis 11/22/18 18:10 Colon Fluid Gram Stain - Final 11/23/18 06:00 Stool Norovirus GI - Preliminary 11/23/18 06:00 Stool Norovirus GII - Preliminary Active Medications Amino Acids (Prosource No Carb Liquid Pkt) 30 ml PO BID@0800,1730 [facility] Last Admin: 11/27/18 08:53 Dose: Not Given Calcium Gluconate (Calcium Gluconate 10% -) 1,000 mg IVPB BID [facility] Last Admin: 11/27/18 09:01 Dose: 1,000 mg Dextrose/Sodium Chloride (D5-Ns -) 1,000 mls @ 50 mls/hr IV ASDIR [facility] Last Admin: 11/26/18 22:03 Dose: 50 mls/hr Loperamide HCl (Imodium -) 2 mg PO Q8H PRN PRN Reason: DIARRHEA Last Admin: 11/24/18 11:55 Dose: 2 mg Metoprolol Succinate (Toprol Xl -) 12.5 mg PO DAILY [facility] Last Admin: 11/27/18 10:59 Dose: Not Given Ondansetron HCl (Zofran Injection) 8 mg IVPB Q6H PRN PRN Reason: NAUSEA Last Admin: 11/25/18 18:08 Dose: 8 mg Pantoprazole Sodium (Protonix Iv) 20 mg IVPUSH DAILY [facility] Last Admin: 11/27/18 09:01 Dose: 20 mg Potassium Phos/Sodium Phos (Phos-Nak Packet -) 1 packet PO BID [facility] Last Admin: 11/27/18 09:02 Dose: 1 packet Ranolazine (Ranexa -) 500 mg PO BID [facility] Last Admin: 11/27/18 09:02 Dose: 500 mg Assmt / plan # atypical chest pain - likely muscle strain - tylenol TID and reassess in am # Diarrhea better control - has not required lomotil - reports less BM - non today - still with poor appetite - will repeat albumin in am # Metabolic acidosis - 2/2 to watery diarrhea - improved / correcting # electrolyte imbalance - 2/2 to diarrhea and poor intake - supplemets adjust as needed - recommend small meals 4-5 / day as tolerated # prostate cancer--w/o metastatic disease; -has had to suspend course of RT which had been in progress 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
[2018-11-27] MEDS: ACETAMINOPHEN 325 MG TABLET (FP) PO SCH ×2 (14:08→19:25)
[2018-11-27] MEDS: DEXTROSE 5%-NORMAL SALINE 1,000 ML IV SCH (22:05)
[2018-11-27] MEDS: LOPERAMIDE HCL 2 MG CAPSULE PO PRN (22:18)
[2018-11-28] MEDS: ACETAMINOPHEN 325 MG TABLET (FP) PO SCH ×4 (00:35→19:32)
[2018-11-28] MEDS: CALCIUM GLUCONATE 10% - 1,000 MG/10 ML VIAL IVPB SCH ×3 (06:08→22:11)
[2018-11-28 06:27] LABS: BASO % 0.5 % (0-2.0); EOS % 5.9 % (0-4.5); HEMATOCRIT 28.1 % (35.4-49); HEMOGLOBIN 9.3 GM/dL (11.7-16.9); LYMPH % 11.4 % (8-40); MCH 28.8 pg (25.7-33.7); MEAN CELL VOLUME 87.3 fl (80-96); MEAN PLT VOLUME 8.4 fl (7.5-11.1); MONO % 9.3 % (3.8-10.2); NEUT % 72.9 % (42.8-82.8); PLATELET COUNT 208 K/MM3 (134-434); RBC 3.21 M/mm3 (4.00-5.60); RDW 19.6 % (11.9-15.9); WHITE BLOOD COUNT 7.3 K/mm3 (4.0-10.0)
[2018-11-28 06:50] LABS: ALBUMIN 1.9 g/dl (3.4-5.0); ANION GAP 9 MMOL/L (8-16); BLOOD UREA NITROGEN 14 mg/dL (7-18); CHLORIDE 112 mmol/L (98-107); CO2 22 mmol/L (21-32); GLUCOSE,RANDOM 87 mg/dL (74-106); MAGNESIUM 1.6 mg/dL (1.8-2.4); POTASSIUM 4.5 mmol/L (3.5-5.1); SODIUM 143 mmol/L (136-145)
[2018-11-28 07:17] LABS: CALCIUM 6.3 mg/dL (8.5-10.1)
[2018-11-28] MEDS ORDERED: MAGNESIUM SULF 50% (8.12 MEQ/2 ML-1 GM VIAL) IVPB ONE (09:00)
[2018-11-28] MEDS: NAPH,MB-DB/K PH,MBDB POWDER PACKET PO SCH ×2 (09:22→22:11)
[2018-11-28] MEDS: PANTOPRAZOLE SODIUM 40 MG VIAL IVPUSH SCH (09:22)
[2018-11-28] MEDS: AMINO ACIDS/PROTEIN HYDROLYS 30 ML LIQUID.PKT PO SCH ×2 (09:22→17:34)
[2018-11-28] MEDS: RANOLAZINE E.R. 500 MG TABLET (FP) PO SCH ×2 (09:23→22:12)
[2018-11-28] MEDS: DEXTROSE 5%-NORMAL SALINE 1,000 ML IV SCH (09:23)
[2018-11-28] MEDS: LOPERAMIDE HCL 2 MG CAPSULE PO PRN (09:34)
[2018-11-28] MEDS ORDERED: MELATONIN 5 MG TABLETS PO PRN (10:48)
--- NOTE | 2018-11-28 10:48 | PN ---
Progress Note (short form) - Note Progress Note: Current Medications Acetaminophen (Tylenol -) 650 mg PO Q6H [facility] Stop: 11/29/18 10:00 Last Admin: 11/28/18 06:08 Dose: 650 mg Amino Acids (Prosource No Carb Liquid Pkt) 30 ml PO BID@0800,1730 [facility] Last Admin: 11/28/18 09:22 Dose: 30 ml Calcium Carbonate (Calcium Carb Oral Suspension -) 500 mg PO BID [facility] Calcium Gluconate (Calcium Gluconate 10% -) 1,000 mg IVPB TID [facility] Last Admin: 11/28/18 06:08 Dose: 1,000 mg Dextrose/Sodium Chloride (D5-Ns -) 1,000 mls @ 75 mls/hr IV ASDIR [facility] Last Admin: 11/28/18 09:23 Dose: 75 mls/hr Loperamide HCl (Imodium -) 2 mg PO Q8H PRN PRN Reason: DIARRHEA Last Admin: 11/28/18 09:34 Dose: 2 mg Ondansetron HCl (Zofran Injection) 8 mg IVPB Q6H PRN PRN Reason: NAUSEA Last Admin: 11/25/18 18:08 Dose: 8 mg Pantoprazole Sodium (Protonix Iv) 20 mg IVPUSH DAILY [facility] Last Admin: 11/28/18 09:22 Dose: 20 mg Potassium Phos/Sodium Phos (Phos-Nak Packet -) 1 packet PO BID [facility] Last Admin: 11/28/18 09:22 Dose: 1 packet Ranolazine (Ranexa -) 500 mg PO BID [facility] Last Admin: 11/28/18 09:23 Dose: 500 mg Laboratory Results - last 24 hr 11/28/18 11/28/18 05:30 05:30 WBC 7.3 RBC 3.21 L Hgb 9.3 L Hct 28.1 L MCV 87.3 MCH 28.8 MCHC 33.0 RDW 19.6 H Plt Count 208 MPV 8.4 Absolute Neuts (auto) 5.3 Neutrophils % 72.9 Lymphocytes % 11.4 Monocytes % 9.3 Eosinophils % 5.9 H Basophils % 0.5 Nucleated RBC % 0 Sodium 143 Potassium 4.5 Chloride 112 H Carbon Dioxide 22 Anion Gap 9 BUN 14 Creatinine 1.0 Creat Clearance w eGFR 71.02 Random Glucose 87 Calcium 6.3 L* Phosphorus 2.0 L Magnesium 1.6 L Albumin 1.9 L Vital Signs Period Temp Pulse Resp BP Sys/Malhotra Pulse Ox Last 24 Hr 97.0 F-98.0 F 54-58 16-18 117-129/43-53 98 CC; feels better but had loose BM last PM; no abd pains, n-v, wheezing ``````````````````````````````` skin--pallor; IV site okay eyes--anicteric; midline lungs--clear heart--RR abd--soft, BS+, NT ext--some edema of the UE's neuro--awake coherent; alert, good eye contact, follows commands; no focal deficits ``````````````````````````````````````````` Summ > Diarrhea--diminishing. So far stool cultures are negative; await GI f/u > metab acidosis (mild)--seems to have corrected > Bacturia--c&S grew enterococcus but UA was NL, and has not signs & Sx of infection; will repeat C&S to see if this may have been erroneous > nausea--still occurs on occasion > Low Mag/calcium--will replenish as needed > QT prolongation--on EKG; likely 2nd low calcium > anemia--NC/Nc; tested (+) for OB (as per GI); H/h remains stable > hypotension--DBP again running under 50; will up rate of NS to 75cc/hr for now > low protein state--due to copious GI fluid losses; made worse by poor PO intake > feeding difficulties--lack of appetite; advised to eat frequently and small amounts > prostate cancer--w/o metastatic disease; has had to suspend course of RT which had been in progress [employer]. 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 Code(s): I13.10 - HYP HRT & CHR KDNY DIS W/O HRT FAIL, W STG 1-4/UNSP CHR KDNY Qualifiers: Chronic kidney disease stage: stage 1 (5) Prolonged Q-T interval on ECG Code(s): R94.31 - ABNORMAL ELECTROCARDIOGRAM [ECG] [EKG] (6) Diarrhea Code(s): R19.7 - DIARRHEA, UNSPECIFIED Qualifiers: Diarrhea type: unspecified type Qualified Code(s): R19.7 - Diarrhea, unspecified (7) Anemia Code(s): D64.9 - ANEMIA, UNSPECIFIED Qualifiers: Anemia type: unspecified type Qualified Code(s): D64.9 - Anemia, unspecified (8) Hypomagnesemia Code(s): E83.42 - HYPOMAGNESEMIA (9) History of coronary artery stent placement Code(s): Z95.5 - PRESENCE OF CORONARY ANGIOPLASTY IMPLANT AND GRAFT
--- NOTE | 2018-11-28 12:10 | PN.GI ---
GI Progress Note Subjective: GI Note: Finally eating better. Had a [employer] burger and fries yesterday. Had syrian muffin and banana for breakfast. Had a formed BM during the day yesterday but had diarrhea at 2AM when Imodium was given. No BM today. Got up and walked yesterday - Objective Vital Signs: Vital Signs Temperature 97.8 F 11/28/18 10:00 Pulse Rate 60 11/28/18 10:00 Respiratory Rate 16 11/28/18 10:00 Blood Pressure 126/49 L 11/28/18 10:00 O2 Sat by Pulse Oximetry (%) 98 11/28/18 10:00 Laboratory Tests 11/25/18 11/26/18 11/27/18 05:30 18:00 05:30 Hgb Hct Calcium Ionized Calcium 4.2 L Magnesium 1.7 L 1.8 Albumin 11/28/18 11/28/18 05:30 05:30 Hgb 9.3 L Hct 28.1 L Calcium 6.3 L* Ionized Calcium Magnesium 1.6 L Albumin 1.9 L Constitutional: Calm ...Auscultate: Yes: Normoactive Bowel Sounds ...Palpate: Yes: Soft, Other (nontender) Labs: CBC, BMP 11/28/18 05:30 11/28/18 05:30 Assessment/Plan Impression: RT enteritis Hypomagnesemia and hypocalcemia Vomiting due to enteritis Plan: Zofran prn Ensue supplements Replace magnesium, calcium parenterally Imodium prn No GI objections to discharge tomorrow if continues to improve and electrolytes permit Problem List - Problems (1) Diarrhea Code(s): R19.7 - DIARRHEA, UNSPECIFIED Qualifiers: Diarrhea type: unspecified type Qualified Code(s): R19.7 - Diarrhea, unspecified (2) Syncope Code(s): R55 - SYNCOPE AND COLLAPSE Qualifiers: Syncope type: unspecified Qualified Code(s): R55 - Syncope and collapse (3) Hypocalcemia Code(s): E83.51 - HYPOCALCEMIA (4) Hypomagnesemia Code(s): E83.42 - HYPOMAGNESEMIA (5) Anemia Code(s): D64.9 - ANEMIA, UNSPECIFIED Qualifiers: Anemia type: unspecified type Qualified Code(s): D64.9 - Anemia, unspecified (6) IPMN (intraductal papillary mucinous neoplasm) Code(s): D49.0 - NEOPLASM OF UNSPECIFIED BEHAVIOR OF DIGESTIVE SYSTEM (7) Prostate cancer Code(s): C61 - MALIGNANT NEOPLASM OF PROSTATE (8) Colon adenoma Code(s): D12.6 - BENIGN NEOPLASM OF COLON, UNSPECIFIED (9) Diverticulosis Code(s): K57.90 - DVRTCLOS OF INTEST, PART UNSP, W/O PERF OR ABSCESS W/O BLEED (10) Hiatal hernia with GERD without esophagitis Code(s): K44.9 - DIAPHRAGMATIC HERNIA WITHOUT OBSTRUCTION OR GANGRENE; K21.9 - GASTRO-ESOPHAGEAL REFLUX DISEASE WITHOUT ESOPHAGITIS (11) Vascular ectasia of duodenum Code(s): K31.89 - OTHER DISEASES OF STOMACH AND DUODENUM (12) History of coronary artery stent placement Code(s): Z95.5 - PRESENCE OF CORONARY ANGIOPLASTY IMPLANT AND GRAFT (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
[2018-11-28 13:06] VITALS: BMI 24.0
[2018-11-28] MEDS: CALCIUM CARBONATE SUSPENSION - 500 MG/5 ML ML PO SCH ×2 (13:11→22:43)
[2018-11-28] MEDS ORDERED: PT OWN MED DRAWER 7, Y5N ONE (22:49)
[2018-11-29] MEDS: ACETAMINOPHEN 325 MG TABLET (FP) PO SCH ×2 (00:10→06:25)
[2018-11-29 05:47] LABS: HEMATOCRIT 28.2 % (35.4-49); HEMOGLOBIN 9.4 GM/dL (11.7-16.9); MCH 28.9 pg (25.7-33.7); MCHC 33.2 g/dl (32.0-35.9); MEAN CELL VOLUME 87.1 fl (80-96); MEAN PLT VOLUME 8.7 fl (7.5-11.1); PLATELET COUNT 217 K/MM3 (134-434); RBC 3.24 M/mm3 (4.00-5.60); WHITE BLOOD COUNT 7.4 K/mm3 (4.0-10.0)
[2018-11-29] MEDS: CALCIUM GLUCONATE 10% - 1,000 MG/10 ML VIAL IVPB SCH ×2 (06:17→13:50)
[2018-11-29 06:20] LABS: ANION GAP 6 MMOL/L (8-16); BLOOD UREA NITROGEN 13 mg/dL (7-18); CHLORIDE 113 mmol/L (98-107); CO2 21 mmol/L (21-32); CREATININE 0.9 mg/dL (0.55-1.3); GLUCOSE,RANDOM 85 mg/dL (74-106); POTASSIUM 4.2 mmol/L (3.5-5.1); SODIUM 140 mmol/L (136-145)
[2018-11-29 07:21] LABS: CALCIUM 6.8 mg/dL (8.5-10.1)
[2018-11-29] MEDS: AMINO ACIDS/PROTEIN HYDROLYS 30 ML LIQUID.PKT PO SCH ×3 (08:23→17:04)
[2018-11-29 08:26] VITALS: BP 144/66; PULSE 63; TEMP 97.8
[2018-11-29] MEDS: DEXTROSE 5%-NORMAL SALINE 1,000 ML IV SCH (08:55)
[2018-11-29] MEDS: RANOLAZINE E.R. 500 MG TABLET (FP) PO SCH (09:15)
[2018-11-29] MEDS: NAPH,MB-DB/K PH,MBDB POWDER PACKET PO SCH (09:15)
[2018-11-29] MEDS: PANTOPRAZOLE SODIUM 40 MG VIAL IVPUSH SCH (09:15)
[2018-11-29] MEDS: CALCIUM CARBONATE SUSPENSION - 500 MG/5 ML ML PO SCH (09:16)
[2018-11-29] MEDS: LOPERAMIDE HCL 2 MG CAPSULE PO PRN (09:17)
[2018-11-29] MEDS: ONDANSETRON 4 MG/2 ML VIAL IVPB PRN (12:31)
--- NOTE | 2018-11-29 17:08 | DS ---
Physical Examination Vital Signs: Vital Signs Temperature 97.8 F 11/29/18 08:26 Pulse Rate 63 11/29/18 08:26 Respiratory Rate 16 11/29/18 08:26 Blood Pressure 144/66 11/29/18 08:26 O2 Sat by Pulse Oximetry (%) 95 11/29/18 10:00 Findings/Remarks: skin--some pallor eyes--non injected; EOMI; anicteric neck--no masses lungs--grossly clear heart--RR abd--benign ext--no CCE; abrasion to Lt elbow; and Rt forearm neuro--awake; coherent; no gross focal deficits; no tetany Labs: CBC, BMP 11/29/18 05:30 11/29/18 05:30 Discharge Summary Reason For Visit: HYPERNATREMIA,HYPOCALCEMIA,SYNCOPE Current Active Problems Anemia (Acute) Diarrhea (Acute) Diverticulosis (Acute) Hiatal hernia with GERD without esophagitis (Acute) History of coronary artery stent placement (Acute) Hypernatremia (Acute) Hypertensive heart and chronic kidney disease (Acute) Hypocalcemia (Acute) Hypomagnesemia (Acute) Prolonged Q-T interval on ECG (Acute) Prostate cancer (Acute) Radiation enteritis (Acute) Syncope (Acute) Vascular ectasia of duodenum (Acute) feeding difficulties contusion forehead and Lt elbow Hx of gout low protein malnutrition Hospital Course: 83 YO M who was BIBA after syncopal episode at home (while he was experiencing very frequent & copious water diarrhea as he was in the process of OP RT to the prostate); he fell striking his head and Lt forearm (resulting in abrasions). He came back to quickly and regained himself intact. He was taken to the ER whenere he was found to be hypotensive; hypocalcemic. He was given IVF but his BP remained low and he kept having loose BM. He denied any abd pains, but had nausea & occasional vomiting. He was replensished daily with IV calcium & magnesium, and was receiving IVF continuously, he had a paltry appetite throughout his stay even after the diarrhea abated anbd was better hydrated. GI consult was obtained and w/u was undertaken but the results were unremarkable ( neg for infection) suggesting RT colitis. He c/o feeling weak on and off, but grew staronger as he was rehydrated. His H/h showed mild anemia but remained stable; U C&S initially showed growing enterococcus but a f/u C&S was negative; all other cultures were negative. he did not require any BP meds while hospitalized. he felt well on day of d/c and was able to ambulate freely. Condition: Improved - Instructions Diet, Activity, Other Instructions: drink at least 1 quart of liquids daily and more if develops loose stools must eat a balanced diet, but preferred foods high in proteins. Check BP daily and keep record Referrals: Erasmo Johnson MD [Primary Care Provider] - Disposition: HOME - Home Medications Comprehensive Discharge Medication List: Ambulatory Orders Allopurinol [Zyloprim -] 300 mg PO DAILY 01/24/13 Ranolazine [Ranexa] 500 mg PO DAILY 01/25/13 Aspirin [ASA -] 81 mg PO DAILY 09/17/17 Pantoprazole Sodium [Protonix] 40 mg PO DAILY 09/17/17 Bicalutamide 50 mg PO DAILY 11/22/18 Acetaminophen [Tylenol .Regular Strength -] 650 mg PO Q6H tablet 11/29/18 Calcium Carbonate 500 gm MC TID #100 tab 11/29/18 Loperamide HCl [Imodium -] 2 mg PO Q8H PRN capsule 11/29/18 Melatonin 5 mg PO HS PRN tab 11/29/18
--- NOTE | 2018-11-29 17:15 | PN.GI ---
GI Progress Note Subjective: GI NOte: Has been walking up and down the hallway and feeling stronger. Eating a bit better. Emphasized the need to eat protein and encouraged Edgardo to use such supplements as Ensure. - Objective Vital Signs: Vital Signs Temperature 97.8 F 11/29/18 08:26 Pulse Rate 63 11/29/18 08:26 Respiratory Rate 16 11/29/18 08:26 Blood Pressure 144/66 11/29/18 08:26 O2 Sat by Pulse Oximetry (%) 95 11/29/18 10:00 Laboratory Tests 11/29/18 05:30 Potassium 4.2 BUN 13 Creatinine 0.9 Calcium 6.8 L* Phosphorus 2.0 L Magnesium 2.0 Constitutional: No Distress ...Auscultate: Yes: Normoactive Bowel Sounds ...Palpate: Yes: Soft, Other (nontender) Labs: CBC, BMP 11/29/18 05:30 11/29/18 05:30 Assessment/Plan Impression: RT enteritisleading to hypoalbuminemia, dehydration, hypomagnesemia and hypocalcemia Vomiting due to enteritis Plan: Zofran prn Ensure supplements Imodium prn No GI objections to discharge. Discussed with Dr. Johnson Problem List - Problems (1) Diarrhea Code(s): R19.7 - DIARRHEA, UNSPECIFIED Qualifiers: Diarrhea type: unspecified type Qualified Code(s): R19.7 - Diarrhea, unspecified (2) Syncope Code(s): R55 - SYNCOPE AND COLLAPSE Qualifiers: Syncope type: unspecified Qualified Code(s): R55 - Syncope and collapse (3) Hypocalcemia Code(s): E83.51 - HYPOCALCEMIA (4) Hypomagnesemia Code(s): E83.42 - HYPOMAGNESEMIA (5) Anemia Code(s): D64.9 - ANEMIA, UNSPECIFIED Qualifiers: Anemia type: unspecified type Qualified Code(s): D64.9 - Anemia, unspecified (6) IPMN (intraductal papillary mucinous neoplasm) Code(s): D49.0 - NEOPLASM OF UNSPECIFIED BEHAVIOR OF DIGESTIVE SYSTEM (7) Prostate cancer Code(s): C61 - MALIGNANT NEOPLASM OF PROSTATE (8) Colon adenoma Code(s): D12.6 - BENIGN NEOPLASM OF COLON, UNSPECIFIED (9) Diverticulosis Code(s): K57.90 - DVRTCLOS OF INTEST, PART UNSP, W/O PERF OR ABSCESS W/O BLEED (10) Hiatal hernia with GERD without esophagitis Code(s): K44.9 - DIAPHRAGMATIC HERNIA WITHOUT OBSTRUCTION OR GANGRENE; K21.9 - GASTRO-ESOPHAGEAL REFLUX DISEASE WITHOUT ESOPHAGITIS (11) Vascular ectasia of duodenum Code(s): K31.89 - OTHER DISEASES OF STOMACH AND DUODENUM (12) History of coronary artery stent placement Code(s): Z95.5 - PRESENCE OF CORONARY ANGIOPLASTY IMPLANT AND GRAFT (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
== END 2018-11-29 18:25 | disposition home or self-care (01) | DRG 394 ==
LOC: JER 11:13 → JERBED 14:24 → J4S 21:03
PROVIDERS: ADMIT Internal Medicine; ATTEND Internal Medicine
DX: K52.0 Gastroenteritis and colitis due to radiation (principal); E87.0 Hyperosmolality and hypernatremia; E87.2 Acidosis; N39.0 Urinary tract infection, site not specified; I13.0 Hypertensive heart and chronic kidney disease with heart failure and stage 1 through stage 4 chronic kidney disease, or unspecified chronic kidney disease; I25.10 Atherosclerotic heart disease of native coronary artery without angina pectoris; E78.5 Hyperlipidemia, unspecified; N40.0 Benign prostatic hyperplasia without lower urinary tract symptoms; K21.9 Gastro-esophageal reflux disease without esophagitis; D12.6 Benign neoplasm of colon, unspecified; K57.90 Diverticulosis of intestine, part unspecified, without perforation or abscess without bleeding; I10 Essential (primary) hypertension; E83.51 Hypocalcemia; D64.9 Anemia, unspecified; M10.9 Gout, unspecified; E83.42 Hypomagnesemia; R55 Syncope and collapse; I45.81 Long QT syndrome; K44.9 Diaphragmatic hernia without obstruction or gangrene; M81.0 Age-related osteoporosis without current pathological fracture; S00.83XA Contusion of other part of head, initial encounter; S50.812A Abrasion of left forearm, initial encounter; E88.09 Other disorders of plasma-protein metabolism, not elsewhere classified; E86.0 Dehydration; K31.89 Other diseases of stomach and duodenum; R63.0 Anorexia; Z68.24 Body mass index [BMI] 24.0-24.9, adult; N18.1 Chronic kidney disease, stage 1; I50.9 Heart failure, unspecified; R11.2 Nausea with vomiting, unspecified; C61 Malignant neoplasm of prostate; B95.2 Enterococcus as the cause of diseases classified elsewhere; Z87.891 Personal history of nicotine dependence; Z95.5 Presence of coronary angioplasty implant and graft; Z87.11 Personal history of peptic ulcer disease; Z88.0 Allergy status to penicillin; W18.39XA Other fall on same level, initial encounter; Y92.098 Other place in other non-institutional residence as the place of occurrence of the external cause
CPT/HCPCS: 36415; 70450-TC; 71045-TC-FY; 80048; 80053; 81003; 82040; 82310; 82330; 82438; 82803; 83516; 83605; 83615; 83735; 83986; 84100; 84302; 84443; 84484; 84550; 84999; 85025; 85027; 85044; 86140; 86671; 87045; 87046; 87086; 87186; 87205; 87324; 87449; 87798; 90715; 93005; 93010; 94640; 97116-GP; 97161-GP; 99284-25; J7030

== ENCOUNTER 2019-01-17 21:57 | Inpatient (IN) | payer OTHER, BC ==
[2019-01-17 22:11] VITALS: BMI 22.8
[2019-01-17] MEDS ORDERED: SODIUM CHLORIDE 1,000 ML IV STA (22:41)
[2019-01-17] MEDS ORDERED: CALCIUM GLUCONATE 10% - 1,000 MG/10 ML VIAL IVPB ONE (23:06)
--- NOTE | 2019-01-17 23:11 | PDOC ---
Documentation entered by Vivienne Contreras SCRIBE, acting as scribe for Herlinda Collins MD. Herlinda Collins MD: This documentation has been prepared by the Ben pemberton Brenda, SCRIBE, under my direction and personally reviewed by me in its entirety. I confirm that the documentation accurately reflects all work, treatment, procedures, and medical decision making performed by me. History of Present Illness - General Chief Complaint: Weakness Stated Complaint: WEAKNESS Time Seen by Provider: 01/17/19 22:08 History Source: Family Exam Limitations: No Limitations - History of Present Illness Initial Comments: 01/17/19 23:27 83 YOM with past medical history of HTN, HLD, CAD (s/p cardiac stenting x2), and local prostate cancer (currently undergoing RT via [facility] --completed 04/20 sessions), last admit in 11/21-11/29 for hypernatremia/anemia/hypocalcemia presenting with generalized weakness, nausea, decreased appetite x 4 days. The patients reports that he finished his radiation for prostate cancer on Wednesday (01/13/19) and began to feel weak on Wednesday (01/15/19). Today, while visiting his PCP, he was reported to have low calcium levels, under 5, where he was advised to come into the ED for an IV drip. He also notes having a low PO intake, and no hunger. The patient also reports having a recent onset of numbness in his hands, which have limited his fine motor skills. no falls or injuries The patient denies chest pain, SOB and dizziness. The patient denies any bowel and bladder issues. Denies any other symptoms. Allergies: pcn Past Medical History: as documented in EMR/HPI Social history: Lives with family. No tobacco, ETOH or drug use. Surgical history: PCI, Radiation tx Meds: as documented in EMR PMD: Dr. Johnson 01/18/19 00:27 01/18/19 00:27 Past History - Past Medical History Allergies/Adverse Reactions: Allergies Allergy/AdvReac Type Severity Reaction Status Date / Time Penicillins Allergy Verified 01/17/19 22:10 Home Medications: Ambulatory Orders Ranolazine [Ranexa] 500 mg PO DAILY 01/25/13 Aspirin [ASA -] 81 mg PO DAILY 09/17/17 Pantoprazole Sodium [Protonix] 40 mg PO DAILY 09/17/17 Bicalutamide 50 mg PO DAILY 11/22/18 Calcium Carbonate 500 gm MC TID #100 tab 11/29/18 Melatonin 5 mg PO HS PRN tab 11/29/18 Anemia: Yes Asthma: No Cancer: Yes (prostate) Cardiac Disorders: Yes (ASHD; CAD, stent) CVA: No COPD: No CHF: No Dementia: No Diabetes: No GI Disorders: Yes (GERD; COLON ADENOMA;DIVERTICULOSIS;DUODENAL ULCERS) Disorders: Yes (BPH) HTN: Yes Hypercholesterolemia: Yes Liver Disease: No Seizures: No Thyroid Disease: No - Surgical History Abdominal Surgery: No Appendectomy: No Cardiac Surgery: Yes (STENTS X 2004; S/P LEFT CAROTID ARTERY SURGERY) Cholecystectomy: No Lung Surgery: No Neurologic Surgery: No Orthopedic Surgery: Yes (ORIF LUE) - Immunization History Immunization Up to Date: Yes - Suicide/Smoking/Psychosocial Hx Smoking History: Former smoker Have you smoked in the past 12 months: No If you are a former smoker, when did you quit?: 1960 Hx Alcohol Use: Yes (socially) Drug/Substance Use Hx: No Substance Use Type: None Hx Substance Use Treatment: No Review of Systems - Review of Systems Able to Perform ROS?: Yes Comments:: 01/17/19 23:28 Constitutional: +Decreased appetite. +general weakness. no fevers or chills. HEENT: +dizziness. No headache. No congestion. No visual/hearing disturbances. CVS: no cp or syncope. Resp: no sob. No cough. Gastrointestinal: +Nausea. no abdominal pain, nausea or vomiting. no bloody stools Genitourinary: no urinary sx, hematuria. MUSCULOSKELETAL: No joint pain and swelling. No neck or back pain. SKIN: no redness or skin changes, no discharge, no rash. No wounds. Hematologic: no easy bruising/bleeding. NEUROLOGIC: No headache, dizziness, LOC or altered mental status. No weakness, numbness or tingling. Allergic/Immunologic: no allergies All other systems reviewed and negative, or as documented in HPI. 01/18/19 00:27 *Physical Exam - Vital Signs Last Vital Signs Temp Pulse Resp BP Pulse Ox 98.2 F 67 16 123/70 98 01/17/19 21:57 01/17/19 21:57 01/17/19 21:57 01/17/19 21:57 01/17/19 21:57 - Physical Exam Comments: 01/17/19 23:28 General: Well appearing, awake and alert, NAD. HEENT: +Pale conjunctiva + Dry Mucous membranes NCAT, PERRL, EOMI, anicteric, clear oropharynx, no oral lesions.. Neck: neck supple, FROM Resp: CTAB, normal and even respirations, no respiratory distress CVS: RRR, no murmurs, 2+ peripheral pulses throughout, no peripheral edema Abdomen: soft, NTND, no rebound or guarding. No CVAT. Back: nontender, normal inspection and ROM MSK: no edema, CULP x4, ROM intact. No clubbing or cyanosis. normal bulk and tone. Extremities: no calf tenderness Neuro: alert, oriented appropriately; no focal neurologic deficits, speech clear Skin: +Pallor. +Blister to right knuckle. +Prior infiltration scar to right forearm with scarring. warm and well perfused, cap refill <2 sec, normal color 01/18/19 00:28 Heart Score/ECG Review #1 ECG reviewed & interpreted by me at: 23:15 General ECG Interpretation: Sinus Rhythm, Normal Rate Compared to previous ECG there are: No significant change 01/18/19 00:30 EKG normal sinus rhythm at 60 bpm, prolonged QT interval, narrow QRS, ST and T wave segments and morphology normal. Nonspecific T wave abnormalities - similar to prior ED Treatment Course - LABORATORY CBC & Chemistry Diagram: 01/17/19 23:38 01/17/19 23:38 Medical Decision Making - Medical Decision Making 01/17/19 23:09 See HPI for details. Prior notes reviewed, including admissions, discharges and consultations. Vital signs reviewed, wnl. labs from today reviewed, chronic anemia noted. no wbc ct. Calcium low ~5, repeat labs drawn, Mg low 0.5, will replete Ca low as seen, repleted. remainder of labs at baseline, trop negative, ECG nonischemic. EKG normal sinus rhythm at 60 bpm, prolonged QT interval, narrow QRS, ST and T wave segments and morphology normal. Nonspecific T wave abnormalities - similar to prior ED course -interventions: IVF and calcium 1g, Mg 2g - spoke with Dr Johnson, accepts admission and agrees to plan admit to Dr Johnson for IV hydration, hypocalcemia/hypo-Mg and medical management/supportive care given likely medication effect and chronic electrolyte/metabolic derangements from underlying radiation therapy/prostate ca. 01/17/19 23:25 01/18/19 00:29 01/18/19 00:46 *DC/Admit/Observation/Transfer Diagnosis at time of Disposition: Hypocalcemia, Prostate cancer, Hypomagnesemia - Discharge Dispostion Condition at time of disposition: Fair Decision to Admit order: Yes Decision to Admit order Date/Time: 01/17/19 23:25 Decision to Admit Order Category Date Time Status Decision to Admit to Hospital Routine Admission 01/17/19 23:24 Ordered - Referrals - Patient Instructions - Post Discharge Activity
[2019-01-17] MEDS ORDERED: CALCIUM GLUCONATE 10% - 1,000 MG/10 ML VIAL ONE (23:23)
[2019-01-17 23:43] LABS: BASO % 0.3 % (0-2.0); EOS % 4.8 % (0-4.5); HEMATOCRIT 31.6 % (35.4-49); HEMOGLOBIN 10.1 GM/dL (11.7-16.9); LYMPH % 10.2 % (8-40); MCH 27.7 pg (25.7-33.7); MCHC 31.9 g/dl (32.0-35.9); MEAN CELL VOLUME 86.7 fl (80-96); MEAN PLT VOLUME 7.3 fl (7.5-11.1); NEUT % 70.7 % (42.8-82.8); PLATELET COUNT 217 K/MM3 (134-434); RBC 3.64 M/mm3 (4.00-5.60); RDW 16.8 % (11.9-15.9); WHITE BLOOD COUNT 6.5 K/mm3 (4.0-10.0)
[2019-01-18 00:06] LABS: INR 1.5 (0.83-1.09); PROTHROMBIN TIME (PATIENT) 17.8 SEC (9.7-13.0)
[2019-01-18 00:34] LABS: ALBUMIN 2.1 g/dl (3.4-5.0); ALK PHOS 97 U/L (45-117); ANION GAP 8 MMOL/L (8-16); BILIRUBIN,TOTAL 0.3 mg/dL (0.2-1); BLOOD UREA NITROGEN 9.7 mg/dL (7-18); CHLORIDE 105 mmol/L (98-107); CO2 25 mmol/L (21-32); CREATININE 1.1 mg/dL (0.55-1.3); GLUCOSE,RANDOM 90 mg/dL (74-106); MAGNESIUM 0.5 mg/dL (1.8-2.4); POTASSIUM 3.8 mmol/L (3.5-5.1); SGOT/AST 22 U/L (15-37); SGPT/ALT 12 U/L (13-61); SODIUM 139 mmol/L (136-145); TOT PROT 4.6 g/dl (6.4-8.2)
[2019-01-18] MEDS ORDERED: MAGNESIUM SULF 50% (8.12 MEQ/2 ML-1 GM VIAL) IVPB ONE ×3 (00:45→13:30)
[2019-01-18 00:54] LABS: CALCIUM < 5.0 mg/dL (8.5-10.1)
[2019-01-18 01:51] LABS: EPI CELLS 1.8 /HPF (0-5/HPF); HYALINE CASTS 5 /lpf (0-8); PH,URINE 6.5 (5.0-8.0); URINE APPEARANCE CLEAR; URINE BACTERIA 1.4 /hpf (NEGATIVE); URINE BILIRUBIN NEGATIVE (NEGATIVE); URINE COLOR YELLOW; URINE GLUCOSE (UA) NEGATIVE (NEGATIVE); URINE KETONE NEGATIVE (NEGATIVE); URINE LEUK ESTERASE TRACE (NEGATIVE); URINE NITRITE NEGATIVE (NEGATIVE); URINE PROTEIN NEGATIVE (NEGATIVE); URINE RBC 3 /hpf (0-4); URINE WBC 1 /hpf (0-5)
[2019-01-18] MEDS: CALCIUM CARBONATE 650 MG TABLET PO SCH ×3 (07:06→22:09)
--- NOTE | 2019-01-18 08:06 | EKG ---
Test Reason : Blood Pressure : / mmHG Vent. Rate : 060 BPM Atrial Rate : 060 BPM P-R Int : 202 ms QRS Dur : 086 ms QT Int : 532 ms P-R-T Axes : 089 002 036 degrees QTc Int : 532 ms POOR DATA QUALITY, INTERPRETATION MAY BE ADVERSELY AFFECTED NORMAL SINUS RHYTHM PROLONGED QT ABNORMAL ECG WHEN COMPARED WITH ECG OF 25-NOV-2018 10:12, OR INTERVAL HAS DECREASED Confirmed by ZEE ROBERTSON, DIANNE ([id number]) on 01/18/2019 8:05:41 AM Referred By: Confirmed By:DIANNE KOCH MD
[2019-01-18 08:38] LABS: ANION GAP 13 MMOL/L (8-16); BLOOD UREA NITROGEN 9.1 mg/dL (7-18); CHLORIDE 104 mmol/L (98-107); CO2 21 mmol/L (21-32); CREATININE 1.1 mg/dL (0.55-1.3); GLUCOSE,RANDOM 83 mg/dL (74-106); MAGNESIUM 1.2 mg/dL (1.8-2.4); POTASSIUM 3.5 mmol/L (3.5-5.1); SODIUM 138 mmol/L (136-145)
[2019-01-18 08:43] LABS: CALCIUM < 5.0 mg/dL (8.5-10.1)
[2019-01-18] MEDS: PANTOPRAZOLE 40 MG TABLET (FP) PO SCH (09:57)
[2019-01-18] MEDS: RANOLAZINE E.R. 500 MG TABLET (FP) PO SCH ×2 (09:57→22:09)
[2019-01-18] MEDS: ENOXAPARIN NA (PORCINE) 40 MG/0.4 ML DISP.SYRIN SQ SCH (09:57)
[2019-01-18] MEDS: metoPROLOL SUCCINATE 25 MG TAB.SR.24H (FP) PO SCH (09:57)
[2019-01-18] MEDS: ASPIRIN COATED 81 MG TABLET.EC PO SCH (09:57)
[2019-01-18] MEDS ORDERED: CALCIUM GLUCONATE 10% - 1,000 MG/10 ML VIAL ONE (09:58)
[2019-01-18] MEDS: BICALUTAMIDE 50 MG TABLET (FP) PO SCH (10:10)
[2019-01-18] MEDS: CALCIUM GLUCONATE 10% - 1,000 MG/10 ML VIAL IVPB SCH ×2 (10:10→22:11)
[2019-01-18] MEDS ORDERED: NAPROXEN 250 MG TABLET (FP) PO ONE (13:15)
[2019-01-18] MEDS ORDERED: TAMSULOSIN HCL 0.4 MG CAP PO ONE ×2 (13:15→17:00)
--- NOTE | 2019-01-18 13:16 | HP ---
Admitting History and Physical - Primary Care Physician PCP: Erasmo Johnson - Admission Chief Complaint: weakness & tremors History of Present Illness: 83 YOM who just recently completed a 26 course of Pelvic RT for prostate cancer less than 1 week ago now presents with ongoing weakness; lack of appetite and tremors. He has a past medical history of HTN, HLD, CAD (s/p cardiac stenting x2 ), and localized prostate cancer (high Manny score)He was hospitalized in early November of this year; for weakness and low calcium related to severe intractable diarrhea (which eventually subsided--cause undiscovered) while in the middle of Rt sessions. He then resumed the RT once discharged and all was well until a week ago when he redeveloped loose stools (with only 2 Rt sesssions left). He was told to use Imodium and try to complete the remaining 2 sessions which he did but continued to feel weak, and then on 01/16/19; he developed twitching of his arms and hands along with weakness; poor PO intake but he did not have diarrhea. His stools were scanty and non watery. Blood work was done on 01/17/19 showing his calcium level to be under 5.0 (all else was fairly benign). He denied any n-v; abd pains; palpitations; fainting spells; but was eating poorly since the end of RT and his urinary output was also slowed (which was to be expected as per the uro-oncologist) History Source: Patient, Family Member Limitations to Obtaining History: No Limitations - Past Medical History Cardiovascular: Yes: CAD (4 coronary stenst in 2004), HTN, Hyperlipdemia, Other (carotid stenosis) Gastrointestinal: Yes: Constipation, Diverticulosis, GERD, Hiatal Hernia, Peptic Ulcer Disease (duodenal ulcer 2012), Other (colon ademnoma removed 2012, 06/06/18 pancreatic tail 7mm IPMN) Renal/: Yes: BPH, Cancer (prostate cancer) Heme/Onc: Yes: Anemia Musculoskeletal: Yes: Osteoarthritis Rheumatology: Yes: Gout Endocrine: Yes: Osteopenia (osteporosis) - Past Surgical History Past Surgical History: Yes: Carotid Endarterectomy (left), Tonsillectomy - Smoking History Smoking history: Former smoker Have you smoked in the past 12 months: No If you are a former smoker, when did you quit?: 1959 - Alcohol/Substance Use Hx Alcohol Use: Yes (socially) History of Substance Use: reports: None - Social History Usual Living Arrangement: Yes: With Spouse ADL: Independent 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 History of Recent Travel: No Home Medications - Allergies Allergies/Adverse Reactions: Allergies Allergy/AdvReac Type Severity Reaction Status Date / Time Penicillins Allergy Verified 01/17/19 22:10 - Home Medications Home Medications: Ambulatory Orders Ranolazine [Ranexa] 500 mg PO DAILY 01/25/13 Aspirin [ASA -] 81 mg PO DAILY 09/17/17 Pantoprazole Sodium [Protonix] 40 mg PO DAILY 09/17/17 Calcium Carbonate 500 gm MC TID #100 tab 11/29/18 Melatonin 5 mg PO HS PRN tab 11/29/18 Amlodipine Besylate 2.5 mg PO DAILY 01/18/19 Metoprolol Succinate 25 mg PO DAILY 01/18/19 Tamsulosin HCl [Flomax] 0.4 mg PO DAILY 01/18/19 Family Disease History - Family Disease History Family Disease History: Heart Disease: Father (CHF), Brother ( with jaundice ), CA: Mother (Uterine cancer), Other: Brother Review of Systems - Review of Systems Constitutional: reports: Malaise, Weakness Eyes: reports: No Symptoms HENT: reports: No Symptoms Neck: reports: No Symptoms Cardiovascular: reports: No Symptoms Respiratory: reports: No Symptoms Gastrointestinal: reports: Other (anorexia) Genitourinary: reports: Frequency Integumentary: reports: No Symptoms Neurological: reports: Tremors, Weakness Endocrine: reports: Increased Thirst, Other (lack of appetite) Psychiatric: reports: Anxiety Physical Examination Vital Signs: Vital Signs Temperature 98 F 01/18/19 07:08 Pulse Rate 75 01/18/19 12:23 Respiratory Rate 18 01/18/19 12:23 Blood Pressure 128/74 01/18/19 12:23 O2 Sat by Pulse Oximetry (%) 99 01/18/19 12:23 Constitutional: Yes: No Distress, Anxious Eyes: Yes: Conjunctiva Clear, EOM Intact HENT: Yes: WNL Neck: Yes: WNL Cardiovascular: Yes: Regular Rate and Rhythm Respiratory: Yes: Diminished Gastrointestinal: Yes: Normal Bowel Sounds, Soft Musculoskeletal: Yes: WNL Extremities: Yes: WNL Edema: Yes Edema: LLE: Trace, RLE: Trace Integumentary: Yes: WNL Neurological: Yes: WNL ...Motor Strength: WNL Psychiatric: Yes: WNL Labs: CBC, BMP 01/17/19 23:38 01/18/19 07:04 CBCD WBC 6.5 K/mm3 (4.0-10.0) 01/17/19 23:38 RBC 3.64 M/mm3 (4.00-5.60) L 01/17/19 23:38 Hgb 10.1 GM/dL (11.7-16.9) L 01/17/19 23:38 Hct 31.6 % (35.4-49) L 01/17/19 23:38 MCV 86.7 fl (80-96) 01/17/19 23:38 MCHC 31.9 g/dl (32.0-35.9) L 01/17/19 23:38 RDW 16.8 % (11.9-15.9) H 01/17/19 23:38 Plt Count 217 K/MM3 (134-434) 01/17/19 23:38 MPV 7.3 fl (7.5-11.1) L D 01/17/19 23:38 CMP Sodium 138 mmol/L (136-145) 01/18/19 07:04 Potassium 3.5 mmol/L (3.5-5.1) 01/18/19 07:04 Chloride 104 mmol/L (98-107) 01/18/19 07:04 Carbon Dioxide 21 mmol/L (21-32) 01/18/19 07:04 Anion Gap 13 MMOL/L (8-16) 01/18/19 07:04 BUN 9.1 mg/dL (7-18) 01/18/19 07:04 Creatinine 1.1 mg/dL (0.55-1.3) 01/18/19 07:04 Random Glucose 83 mg/dL (74-106) 01/18/19 07:04 Calcium < 5.0 mg/dL (8.5-10.1) L* 01/18/19 07:04 Total Bilirubin 0.3 mg/dL (0.2-1) 01/17/19 23:38 AST 22 U/L (15-37) 01/17/19 23:38 ALT 12 U/L (13-61) L 01/17/19 23:38 Alkaline Phosphatase 97 U/L (45-117) 01/17/19 23:38 Total Protein 4.6 g/dl (6.4-8.2) L 01/17/19 23:38 Albumin 2.1 g/dl (3.4-5.0) L 01/17/19 23:38 CARDIAC ENZYMES Creatine Kinase 296 U/L (26-308) 01/17/19 23:38 Troponin I < 0.02 ng/ml (0.00-0.05) 01/17/19 23:38 Imaging - Results EKG: Report Reviewed Problem List - Problems (1) Hypocalcemia Assessment/Plan: severe; not responding to oral supplements; level below 5, with tetany. Cause probably related to RT as he did not have this prior to these Tx; though he does not have diarrhea (as he did on his prior hospitalization) at this time. Prior Phosphate levels low as was ionized calcium. PLAN: replenish and check PTH Code(s): E83.51 - HYPOCALCEMIA (2) Hypomagnesemia Assessment/Plan: replenish IV & PO Code(s): E83.42 - HYPOMAGNESEMIA (3) Hypertensive heart and chronic kidney disease Assessment/Plan: cont BB; and Ranexa Code(s): I13.10 - HYP HRT & CHR KDNY DIS W/O HRT FAIL, W STG 1-4/UNSP CHR KDNY Qualifiers: Chronic kidney disease stage: stage 1 Heart failure presence: without heart failure Qualified Code(s): I13.10 - Hypertensive heart and chronic kidney disease without heart failure, with stage 1 through stage 4 chronic kidney disease, or unspecified chronic kidney disease; N18.1 - Chronic kidney disease, stage 1 (4) Prostate cancer Assessment/Plan: s/p completion of RT, on Casodex Code(s): C61 - MALIGNANT NEOPLASM OF PROSTATE (5) Anemia Assessment/Plan: not new; stable, NC-NC Code(s): D64.9 - ANEMIA, UNSPECIFIED Qualifiers: Anemia type: unspecified type Qualified Code(s): D64.9 - Anemia, unspecified (6) Hiatal hernia with GERD without esophagitis Assessment/Plan: cont PPI Code(s): K44.9 - DIAPHRAGMATIC HERNIA WITHOUT OBSTRUCTION OR GANGRENE; K21.9 - GASTRO-ESOPHAGEAL REFLUX DISEASE WITHOUT ESOPHAGITIS (7) Protein calorie malnutrition Assessment/Plan: generalized poor nutritional intake amid his RT resulting in weight loss, weakness, and low protein state. Code(s): E46 - UNSPECIFIED PROTEIN-CALORIE MALNUTRITION Qualifiers: Protein-calorie malnutrition severity: mild Qualified Code(s): E44.1 - Mild protein-calorie malnutrition Assessment/Plan 83 YO with symptomtaic hypocalcemia not responding to oral supplements ~~~~~~~~~~~~~~~~~~~~~~~ Dr Medrano
[2019-01-18] MEDS: AMINO ACIDS/PROTEIN HYDROLYS 30 ML LIQUID.PKT PO SCH (17:42)
[2019-01-18] MEDS ORDERED: PT OWN MED DRAWER 7, Y5N ONE (21:46)
[2019-01-19] MEDS: CALCIUM CARBONATE 650 MG TABLET PO SCH ×3 (06:06→22:41)
[2019-01-19 08:02] LABS: BLOOD UREA NITROGEN 12.1 mg/dL (7-18); MAGNESIUM 1.2 mg/dL (1.8-2.4); POTASSIUM 3.6 mmol/L (3.5-5.1)
[2019-01-19 08:24] LABS: CALCIUM 5.1 mg/dL (8.5-10.1)
[2019-01-19] MEDS ORDERED: PT OWN MED DRAWER 7, Y5N ONE ×3 (09:21→22:28)
[2019-01-19] MEDS: CALCIUM GLUCONATE 10% - 1,000 MG/10 ML VIAL IVPB SCH ×2 (09:39→22:41)
[2019-01-19] MEDS: ASPIRIN COATED 81 MG TABLET.EC PO SCH (09:44)
[2019-01-19] MEDS: RANOLAZINE E.R. 500 MG TABLET (FP) PO SCH ×2 (09:44→22:42)
[2019-01-19] MEDS: AMINO ACIDS/PROTEIN HYDROLYS 30 ML LIQUID.PKT PO SCH ×2 (09:44→18:52)
[2019-01-19] MEDS: TAMSULOSIN HCL 0.4 MG CAP PO SCH (09:44)
[2019-01-19] MEDS: PANTOPRAZOLE 40 MG TABLET (FP) PO SCH (09:45)
[2019-01-19] MEDS: ENOXAPARIN NA (PORCINE) 40 MG/0.4 ML DISP.SYRIN SQ SCH (09:46)
[2019-01-19] MEDS: metoPROLOL SUCCINATE 25 MG TAB.SR.24H (FP) PO SCH (09:47)
[2019-01-19] MEDS: NAPROXEN 250 MG TABLET (FP) PO SCH ×2 (09:48→22:43)
[2019-01-19] MEDS: BICALUTAMIDE 50 MG TABLET (FP) PO SCH (09:53)
[2019-01-19] MEDS ORDERED: amLODIPine BESYLATE 2.5 MG TABLET (FP) PO SCH (10:00)
[2019-01-19] MEDS ORDERED: MAGNESIUM SULF 50% (8.12 MEQ/2 ML-1 GM VIAL) IVPB ONE (12:30)
[2019-01-19] MEDS ORDERED: CALCIUM GLUCONATE 10% - 1,000 MG/10 ML VIAL IVPB SCH (14:00)
--- NOTE | 2019-01-19 14:06 | PN ---
Progress Note (short form) - Note Progress Note: Current Medications Amino Acids (Prosource No Carb Liquid Pkt) 30 ml PO BID@0800,1730 [facility] Last Admin: 01/19/19 09:44 Dose: 30 ml Amlodipine Besylate (Norvasc -) 2.5 mg PO DAILY [facility] Last Admin: 01/19/19 09:45 Dose: Not Given Aspirin (Ecotrin -) 81 mg PO DAILY [facility] Last Admin: 01/19/19 09:44 Dose: 81 mg Bicalutamide (Casodex -) 50 mg PO DAILY [facility] Last Admin: 01/19/19 09:53 Dose: Not Given Calcium Carbonate (Calcium Carbonate -) 650 mg PO TID [facility] Last Admin: 01/19/19 13:19 Dose: 650 mg Calcium Gluconate (Calcium Gluconate 10% -) 1,000 mg IVPB Q8H [facility] Enoxaparin Sodium (Lovenox -) 40 mg SQ DAILY [facility] Last Admin: 01/19/19 09:46 Dose: 40 mg Metoprolol Succinate (Toprol Xl -) 12.5 mg PO DAILY [facility] Last Admin: 01/19/19 09:47 Dose: 12.5 mg Naproxen (Naprosyn -) 250 mg PO BID [facility] Last Admin: 01/19/19 09:48 Dose: 250 mg Pantoprazole Sodium (Protonix -) 40 mg PO DAILY [facility] Last Admin: 01/19/19 09:45 Dose: 40 mg Ranolazine (Ranexa -) 500 mg PO BID [facility] Last Admin: 01/19/19 09:44 Dose: 500 mg Tamsulosin HCl (Flomax -) 0.8 mg PO DAILY@0830 [facility] Last Admin: 01/19/19 09:44 Dose: 0.8 mg Laboratory Results - last 24 hr 01/19/19 06:15 Sodium 138 Potassium 3.6 Chloride 103 Carbon Dioxide 25 Anion Gap 10 BUN 12.1 Creatinine 1.0 Est GFR (CKD-EPI)AfAm 79.19 Est GFR (CKD-EPI)NonAf 68.33 Random Glucose 74 Calcium 5.1 L* Magnesium 1.2 L TSH 1.16 D Vital Signs Temperature 97.7 F 01/19/19 06:00 Pulse Rate 62 01/19/19 06:00 Respiratory Rate 20 01/19/19 06:00 Blood Pressure 124/56 L 01/19/19 06:00 O2 Sat by Pulse Oximetry (%) 99 01/18/19 21:00 CC: a bit weak; no n-v; diarrhea; dizzines but still has occasional hand twitches `````````````````````````````````````````` skin--pallor eyes--anicteric lungs--grossly clear heart--RR abd--benign neuro--awake;verbal; speech is fluent; no motor deficits; occasional spont fast twitches of digits ````````````````````````````````````````````````````````` Summ > Hypocalcemia--profound; in the wake of completing RT; exhibited symptoms ( tetanic spasms) which have improved with IV & PO supplementation; level now above 5.0 but corrected calcium should be over 6.5 PLAN: Up IV Calcium gluc to TID and cont PO calcium as well; Urine calcium is pending; Vit D level pending as is the PTH level. > Low Magnesium--replenish IV for now; unsure what the cause > Htn--BP okay; resume low dose BB & CCB > Prostate cancer--completed course of RT; now on casodex. 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 Code(s): I13.10 - HYP HRT & CHR KDNY DIS W/O HRT FAIL, W STG 1-4/UNSP CHR KDNY Qualifiers: Chronic kidney disease stage: stage 1 Heart failure presence: without heart failure Qualified Code(s): I13.10 - Hypertensive heart and chronic kidney disease without heart failure, with stage 1 through stage 4 chronic kidney disease, or unspecified chronic kidney disease; N18.1 - Chronic kidney disease, stage 1 (4) Prostate cancer Code(s): C61 - MALIGNANT NEOPLASM OF PROSTATE (5) Anemia Code(s): D64.9 - ANEMIA, UNSPECIFIED Qualifiers: Anemia type: unspecified type Qualified Code(s): D64.9 - Anemia, unspecified (6) Hiatal hernia with 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
[2019-01-20] MEDS: DEXTROSE 5%-NORMAL SALINE 1,000 ML IV SCH (03:42)
[2019-01-20] MEDS: CALCIUM GLUCONATE 10% - 1,000 MG/10 ML VIAL IVPB SCH ×3 (04:40→20:22)
[2019-01-20] MEDS: CALCIUM CARBONATE 650 MG TABLET PO SCH ×3 (05:53→21:23)
[2019-01-20] MEDS ORDERED: PT OWN MED DRAWER 7, Y5N ONE ×2 (09:08→20:29)
[2019-01-20] MEDS ORDERED: HALOPERIDOL LACTATE 5 MG/ML IM ONE (09:14)
--- NOTE | 2019-01-20 09:19 | PN ---
Progress Note (short form) - Note Progress Note: received call today (this AM) from floor nurse (Kim) taking care of the patient who stated that he was agitated; confused, combative; and paranoid. PLAN : stat dose of Haldol 5mg IM to be given, as his state of extreme agitation puts him at risk for a cardio-vascular event. 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 Code(s): I13.10 - HYP HRT & CHR KDNY DIS W/O HRT FAIL, W STG 1-4/UNSP CHR KDNY Qualifiers: Chronic kidney disease stage: stage 1 Heart failure presence: without heart failure Qualified Code(s): I13.10 - Hypertensive heart and chronic kidney disease without heart failure, with stage 1 through stage 4 chronic kidney disease, or unspecified chronic kidney disease; N18.1 - Chronic kidney disease, stage 1 (4) Prostate cancer Code(s): C61 - MALIGNANT NEOPLASM OF PROSTATE (5) Anemia Code(s): D64.9 - ANEMIA, UNSPECIFIED Qualifiers: Anemia type: unspecified type Qualified Code(s): D64.9 - Anemia, unspecified (6) Hiatal hernia with 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
[2019-01-20] MEDS: ENOXAPARIN NA (PORCINE) 40 MG/0.4 ML DISP.SYRIN SQ SCH (09:26)
[2019-01-20] MEDS: RANOLAZINE E.R. 500 MG TABLET (FP) PO SCH ×2 (09:27→21:23)
[2019-01-20] MEDS: PANTOPRAZOLE 40 MG TABLET (FP) PO SCH (09:27)
[2019-01-20] MEDS: metoPROLOL SUCCINATE 25 MG TAB.SR.24H (FP) PO SCH (09:27)
[2019-01-20] MEDS: ASPIRIN COATED 81 MG TABLET.EC PO SCH (09:27)
[2019-01-20] MEDS: TAMSULOSIN HCL 0.4 MG CAP PO SCH (09:27)
[2019-01-20] MEDS: NAPROXEN 250 MG TABLET (FP) PO SCH ×2 (09:29→21:22)
[2019-01-20] MEDS: AMINO ACIDS/PROTEIN HYDROLYS 30 ML LIQUID.PKT PO SCH ×2 (09:33→18:13)
[2019-01-20] MEDS: BICALUTAMIDE 50 MG TABLET (FP) PO SCH (09:33)
[2019-01-20 11:42] LABS: BLOOD UREA NITROGEN 19.2 mg/dL (7-18); CREATININE 1.5 mg/dL (0.55-1.3); POTASSIUM 3.1 mmol/L (3.5-5.1)
[2019-01-20 11:50] LABS: CALCIUM 5.2 mg/dL (8.5-10.1)
[2019-01-20] MEDS ORDERED: POTASSIUM CHLORIDE TABS 20 MEQ TABLET.ER (FP) PO ONE (12:45)
[2019-01-20] MEDS ORDERED: HALOPERIDOL 5 MG TABLET (FP) PO PRN (16:05)
--- NOTE | 2019-01-20 16:25 | PN ---
Progress Note (short form) - Note Progress Note: Current Medications Amino Acids (Prosource No Carb Liquid Pkt) 30 ml PO BID@0800,1730 [facility] Last Admin: 01/20/19 09:33 Dose: Not Given Aspirin (Ecotrin -) 81 mg PO DAILY [facility] Last Admin: 01/20/19 09:27 Dose: 81 mg Bicalutamide (Casodex -) 50 mg PO DAILY [facility] Last Admin: 01/20/19 09:33 Dose: Not Given Calcium Carbonate (Calcium Carbonate -) 650 mg PO TID [facility] Last Admin: 01/20/19 14:49 Dose: 650 mg Calcium Gluconate (Calcium Gluconate 10% -) 1,000 mg IVPB Q8H [facility] Last Admin: 01/20/19 12:15 Dose: 1,000 mg Enoxaparin Sodium (Lovenox -) 40 mg SQ DAILY [facility] Last Admin: 01/20/19 09:26 Dose: 40 mg Haloperidol (Haldol -) 5 mg PO TID PRN PRN Reason: AGITATION Dextrose/Sodium Chloride (D5-Ns -) 1,000 mls @ 42 mls/hr IV ASDIR [facility] Last Admin: 01/20/19 03:42 Dose: 42 mls/hr Metoprolol Succinate (Toprol Xl -) 12.5 mg PO DAILY [facility] Last Admin: 01/20/19 09:27 Dose: 12.5 mg Naproxen (Naprosyn -) 250 mg PO BID [facility] Last Admin: 01/20/19 09:29 Dose: 250 mg Pantoprazole Sodium (Protonix -) 40 mg PO DAILY [facility] Last Admin: 01/20/19 09:27 Dose: 40 mg Ranolazine (Ranexa -) 500 mg PO BID [facility] Last Admin: 01/20/19 09:27 Dose: 500 mg Tamsulosin HCl (Flomax -) 0.8 mg PO DAILY@0830 [facility] Last Admin: 01/20/19 09:27 Dose: 0.8 mg Laboratory Results - last 24 hr 01/19/19 01/20/19 06:15 10:10 Sodium 140 Potassium 3.1 L Chloride 106 Carbon Dioxide 24 Anion Gap 10 BUN 19.2 H Creatinine 1.5 H Est GFR (CKD-EPI)AfAm 48.50 Est GFR (CKD-EPI)NonAf 41.85 Random Glucose 94 Calcium 5.2 L* PTH Intact 89 H Vital Signs Temperature 97.6 F 01/20/19 06:00 Pulse Rate 68 01/20/19 09:00 Respiratory Rate 18 01/20/19 09:00 Blood Pressure 124/70 01/20/19 09:00 O2 Sat by Pulse Oximetry (%) 100 01/20/19 09:00 CC: no complaints at this time `````````````````````````````````````````` skin--pallor; area of redness and central focus of purulence on Lt antecub fossa eyes--anicteric lungs--grossly clear heart--RR abd--benign neuro--calm;verbal; good eye contact; is aware of his surrounding, speech is fluent; no motor deficits; exhibits short term memory impairment and insight ````````````````````````````````````````````````````````` Summ > acute delirium--occuring after he 1st developed bilat visual changes (green background) which has now resolved; then then became restless; agitated and confused into the night and no sleeping. he continued being confused into the Am hours, and worsening. He was rx'd IM Haldol with a favorable response, and is now much more calm and focused though his memory still wavers. head CT was negative for acute event and on exam he does not reveal any signs of an acute stroke. PLAN: Prn Haldol; continue to correct metabolic derangement. > Hypokalemia--replenish as needed > Hypocalcemia--profound; in the wake of completing RT; exhibited symptoms ( tetanic spasms) which have improved with IV & PO supplementation; level now above 5.0 but corrected calcium should be over 6.5; serum PTH is appriopriately elevated indicating no parathyroid gland dysfunction. PLAN: cont current course ; Urine calcium is pending; Vit D level is WNL. > Low Magnesium--replenish as needed > pustule--with surrounding redness; culture taken. Rx topical agent. > Htn--BP okay; resume low dose BB only > Prostate cancer--completed course of RT; now on casodex. 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 Code(s): I13.10 - HYP HRT & CHR KDNY DIS W/O HRT FAIL, W STG 1-4/UNSP CHR KDNY Qualifiers: Chronic kidney disease stage: stage 1 Heart failure presence: without heart failure Qualified Code(s): I13.10 - Hypertensive heart and chronic kidney disease without heart failure, with stage 1 through stage 4 chronic kidney disease, or unspecified chronic kidney disease; N18.1 - Chronic kidney disease, stage 1 (4) Prostate cancer Code(s): C61 - MALIGNANT NEOPLASM OF PROSTATE (5) Anemia Code(s): D64.9 - ANEMIA, UNSPECIFIED Qualifiers: Anemia type: unspecified type Qualified Code(s): D64.9 - Anemia, unspecified (6) Hiatal hernia with 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
[2019-01-20] MEDS ORDERED: MAGNESIUM SULFATE 4GM/100CC IN STERILE WATER IVPB ONE ×2 (19:58→20:45)
[2019-01-20] MEDS ORDERED: CALCIUM GLUCONATE 10% - 1,000 MG/10 ML VIAL IVPB ONE (20:00)
[2019-01-20 21:21] LABS: ALBUMIN 2.4 g/dl (3.4-5.0); BILIRUBIN,TOTAL 0.6 mg/dL (0.2-1); BLOOD UREA NITROGEN 23.5 mg/dL (7-18); CREATININE 2.2 mg/dL (0.55-1.3); MAGNESIUM 1.1 mg/dL (1.8-2.4); PHOSPHOROUS 3.9 mg/dL (2.5-4.9); POTASSIUM 4.3 mmol/L (3.5-5.1); TOT PROT 5.3 g/dl (6.4-8.2)
[2019-01-20 21:23] LABS: CALCIUM 5.2 mg/dL (8.5-10.1)
[2019-01-20] MEDS: MUPIROCIN 2% TOPICAL OINTMENT 22 GM TUBE TP SCH (21:27)
--- NOTE | 2019-01-20 23:48 | PN ---
Progress Note (short form) - Note Progress Note: called by Nursing staff this evening who told me that the patient had developed all around rigidity/stiffness. House staff was called who ordered IV Mag. This could likely be 2nd dystonic reaction from the Haldol he previously received. PLAN: Benadryl to counter this effect. 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 Code(s): I13.10 - HYP HRT & CHR KDNY DIS W/O HRT FAIL, W STG 1-4/UNSP CHR KDNY Qualifiers: Chronic kidney disease stage: stage 1 Heart failure presence: without heart failure Qualified Code(s): I13.10 - Hypertensive heart and chronic kidney disease without heart failure, with stage 1 through stage 4 chronic kidney disease, or unspecified chronic kidney disease; N18.1 - Chronic kidney disease, stage 1 (4) Prostate cancer Code(s): C61 - MALIGNANT NEOPLASM OF PROSTATE (5) Anemia Code(s): D64.9 - ANEMIA, UNSPECIFIED Qualifiers: Anemia type: unspecified type Qualified Code(s): D64.9 - Anemia, unspecified (6) Hiatal hernia with 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
[2019-01-21] MEDS: DEXTROSE 5%-NORMAL SALINE 1,000 ML IV SCH ×2 (01:30→19:17)
[2019-01-21] MEDS: CALCIUM GLUCONATE 10% - 1,000 MG/10 ML VIAL IVPB SCH (05:00)
[2019-01-21] MEDS: CALCIUM CARBONATE 650 MG TABLET PO SCH ×3 (05:58→21:54)
[2019-01-21] MEDS ORDERED: INSULIN (NOVOLOG) ASPART 100 UNITS/ML 10ML VIAL ONE (06:44)
[2019-01-21 07:25] LABS: HEMATOCRIT 32.2 % (35.4-49); HEMOGLOBIN 10.6 GM/dL (11.7-16.9); MCH 28.6 pg (25.7-33.7); MEAN CELL VOLUME 86.7 fl (80-96); MEAN PLT VOLUME 8.2 fl (7.5-11.1); PLATELET COUNT 211 K/MM3 (134-434); RBC 3.72 M/mm3 (4.00-5.60); RDW 16.9 % (11.9-15.9); WHITE BLOOD COUNT 8.3 K/mm3 (4.0-10.0)
[2019-01-21 07:41] LABS: ALBUMIN 2.3 g/dl (3.4-5.0); BILIRUBIN,TOTAL 0.7 mg/dL (0.2-1); BLOOD UREA NITROGEN 27.8 mg/dL (7-18); CREATININE 2.7 mg/dL (0.55-1.3); MAGNESIUM 2.3 mg/dL (1.8-2.4); TOT PROT 4.9 g/dl (6.4-8.2)
[2019-01-21 07:44] LABS: CALCIUM 6.4 mg/dL (8.5-10.1)
[2019-01-21] MEDS: metoPROLOL SUCCINATE 25 MG TAB.SR.24H (FP) PO SCH (09:15)
[2019-01-21] MEDS: TAMSULOSIN HCL 0.4 MG CAP PO SCH (09:15)
[2019-01-21] MEDS: ASPIRIN COATED 81 MG TABLET.EC PO SCH (09:16)
[2019-01-21] MEDS: PANTOPRAZOLE 40 MG TABLET (FP) PO SCH (09:16)
[2019-01-21] MEDS: ENOXAPARIN NA (PORCINE) 40 MG/0.4 ML DISP.SYRIN SQ SCH (09:16)
[2019-01-21] MEDS: RANOLAZINE E.R. 500 MG TABLET (FP) PO SCH ×2 (09:16→21:54)
[2019-01-21] MEDS: MUPIROCIN 2% TOPICAL OINTMENT 22 GM TUBE TP SCH ×2 (09:18→21:55)
[2019-01-21] MEDS: AMINO ACIDS/PROTEIN HYDROLYS 30 ML LIQUID.PKT PO SCH ×2 (09:18→17:59)
[2019-01-21] MEDS ORDERED: PT OWN MED DRAWER 7, Y5N ONE ×3 (10:16→20:56)
[2019-01-21] MEDS: NAPROXEN 250 MG TABLET (FP) PO SCH (10:34)
[2019-01-21] MEDS: BICALUTAMIDE 50 MG TABLET (FP) PO SCH (10:36)
[2019-01-21] MEDS ORDERED: BENZTROPINE MESYLATE 0.5 MG TABLET (FP) PO ONE (17:36)
[2019-01-21] MEDS ORDERED: SULFAMETHOXAZOLE/TRIMETHOPRIM 800MG/160MG D.S. TABLET PO ONE (17:39)
--- NOTE | 2019-01-21 17:59 | PN ---
Progress Note (short form) - Note Progress Note: Current Medications Amino Acids (Prosource No Carb Liquid Pkt) 30 ml PO BID@0800,1730 [facility] Last Admin: 01/21/19 09:18 Dose: 30 ml Aspirin (Ecotrin -) 81 mg PO DAILY [facility] Last Admin: 01/21/19 09:16 Dose: 81 mg Benztropine Mesylate (Cogentin -) 0.25 mg PO ONCE ONE Stop: 01/21/19 17:37 Benztropine Mesylate (Cogentin -) 0.25 mg PO BID [facility] Bicalutamide (Casodex -) 50 mg PO DAILY [facility] Last Admin: 01/21/19 10:36 Dose: 50 mg Calcium Carbonate (Calcium Carbonate -) 650 mg PO TID [facility] Last Admin: 01/21/19 05:58 Dose: 650 mg Enoxaparin Sodium (Lovenox -) 40 mg SQ DAILY [facility] Last Admin: 01/21/19 09:16 Dose: 40 mg Metoprolol Succinate (Toprol Xl -) 12.5 mg PO DAILY [facility] Last Admin: 01/21/19 09:15 Dose: 12.5 mg Mupirocin (Bactroban 2% Ointment -) 1 applic TP BID [facility] Last Admin: 01/21/19 09:18 Dose: 1 applic Pantoprazole Sodium (Protonix -) 40 mg PO DAILY [facility] Last Admin: 01/21/19 09:16 Dose: 40 mg Ranolazine (Ranexa -) 500 mg PO BID [facility] Last Admin: 01/21/19 09:16 Dose: 500 mg Tamsulosin HCl (Flomax -) 0.8 mg PO DAILY@0830 [facility] Last Admin: 01/21/19 09:15 Dose: 0.8 mg Trimethoprim/Sulfamethoxazole (Bactrim Ds -) 1 each PO ONCE ONE Stop: 01/21/19 17:40 Laboratory Results - last 24 hr 01/20/19 01/20/19 01/21/19 20:10 20:10 06:19 WBC 8.3 RBC 3.72 L Hgb 10.6 L Hct 32.2 L MCV 86.7 MCH 28.6 MCHC 33.0 RDW 16.9 H Plt Count 211 MPV 8.2 D Sodium 138 Potassium 4.3 Chloride 107 Carbon Dioxide 19 L Anion Gap 12 BUN 23.5 H Creatinine 2.2 H Est GFR (CKD-EPI)AfAm 30.53 Est GFR (CKD-EPI)NonAf 26.34 Random Glucose 96 Calcium 5.2 L* Phosphorus 3.9 Cancelled Magnesium 1.1 L Total Bilirubin 0.6 AST 33 ALT 16 Alkaline Phosphatase 116 Total Protein 5.3 L Albumin 2.4 L 01/21/19 06:19 WBC RBC Hgb Hct MCV MCH MCHC RDW Plt Count MPV Sodium 139 Potassium 4.0 Chloride 105 Carbon Dioxide 22 Anion Gap 11 BUN 27.8 H Creatinine 2.7 H Est GFR (CKD-EPI)AfAm 23.83 Est GFR (CKD-EPI)NonAf 20.56 Random Glucose 91 Calcium 6.4 L* Phosphorus Magnesium 2.3 Total Bilirubin 0.7 AST 27 ALT 13 Alkaline Phosphatase 110 Total Protein 4.9 L Albumin 2.3 L Vital Signs Temperature 97.7 F 01/21/19 14:46 Pulse Rate 69 01/21/19 14:46 Respiratory Rate 18 01/21/19 14:46 Blood Pressure 118/55 L 01/21/19 14:46 O2 Sat by Pulse Oximetry (%) 99 01/20/19 21:00 CC: c/o muscle spasms on face; arms resolved with use of Benadryl which began last PM (after he received one dose of IM Haldol on the early part of 01/20/19) `````````````````````````````````````````` skin--pallor; area of redness and central focus of purulence on Lt antecub fossa eyes--anicteric lungs--grossly clear heart--RR abd--benign neuro--anxiousl; good eye contact; is aware of his surrounding, speech is pressured; no motor deficits; develops occasional facial spasms which resolve ````````````````````````````````````````````````````````` Summ > Acute renal insuff--worsened over 24Hrs; abd US revealed urinary retention of 1000 ML which could be backing up into the renal pelvis producing rise in Bun/cr ; renal effect on the NSAID might also be contributing. PLAN: Gomes placed w/o problem; releieved of nearly 1000 Ml of tea colored urine; will Rx 1 dose of bactrim and send out UA; will keep in Gomes for now. Check renal functions daily > acute delirium--is more coherent and focused now; but now anxious with regards to the "spasms" he is experiencing (which are remedied with benadryl; > Dystonic rx--post 1 dose of Haldol; not as severe as it was last PM; relived by anti-histamine but will use Cogentin as benadryl can worsen his ability to void. > Hypokalemia--replenish as needed > Hypocalcemia--near the corrected calcium range; serum PTH is appriopriately elevated indicating no parathyroid gland dysfunction. PLAN: stop IV calcium. > Low Magnesium--replenish as needed > pustule--with surrounding redness; culture taken. Rx topical agent. > Htn--BP okay, on low dose BB only > Prostate cancer--completed course of RT; now on casodex. 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 Code(s): I13.10 - HYP HRT & CHR KDNY DIS W/O HRT FAIL, W STG 1-4/UNSP CHR KDNY Qualifiers: Chronic kidney disease stage: stage 1 Heart failure presence: without heart failure Qualified Code(s): I13.10 - Hypertensive heart and chronic kidney disease without heart failure, with stage 1 through stage 4 chronic kidney disease, or unspecified chronic kidney disease; N18.1 - Chronic kidney disease, stage 1 (4) Prostate cancer Code(s): C61 - MALIGNANT NEOPLASM OF PROSTATE (5) Anemia Code(s): D64.9 - ANEMIA, UNSPECIFIED Qualifiers: Anemia type: unspecified type Qualified Code(s): D64.9 - Anemia, unspecified (6) Hiatal hernia with 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
[2019-01-21] MEDS: BENZTROPINE MESYLATE 0.5 MG TABLET (FP) PO SCH (21:55)
[2019-01-21] MEDS ORDERED: clonazePAM 0.5 MG TABLET PO SCH (22:00)
[2019-01-22] MEDS: CALCIUM CARBONATE 650 MG TABLET PO SCH ×3 (06:23→21:32)
[2019-01-22] MEDS: AMINO ACIDS/PROTEIN HYDROLYS 30 ML LIQUID.PKT PO SCH ×2 (08:29→18:25)
[2019-01-22] MEDS: TAMSULOSIN HCL 0.4 MG CAP PO SCH (08:29)
[2019-01-22 08:45] LABS: BLOOD UREA NITROGEN 26.8 mg/dL (7-18); POTASSIUM 3.8 mmol/L (3.5-5.1)
[2019-01-22 09:02] LABS: CALCIUM 5.9 mg/dL (8.5-10.1)
[2019-01-22] MEDS: DEXTROSE 5%-NORMAL SALINE 1,000 ML IV SCH ×2 (09:22→18:24)
[2019-01-22] MEDS: PANTOPRAZOLE 40 MG TABLET (FP) PO SCH (09:30)
[2019-01-22] MEDS: metoPROLOL SUCCINATE 25 MG TAB.SR.24H (FP) PO SCH (09:30)
[2019-01-22] MEDS: RANOLAZINE E.R. 500 MG TABLET (FP) PO SCH ×2 (09:30→21:31)
[2019-01-22] MEDS: ENOXAPARIN NA (PORCINE) 40 MG/0.4 ML DISP.SYRIN SQ SCH (09:31)
[2019-01-22] MEDS: BENZTROPINE MESYLATE 0.5 MG TABLET (FP) PO SCH ×2 (09:31→21:31)
[2019-01-22] MEDS: ASPIRIN COATED 81 MG TABLET.EC PO SCH (09:31)
[2019-01-22] MEDS: BICALUTAMIDE 50 MG TABLET (FP) PO SCH (09:33)
[2019-01-22] MEDS: MUPIROCIN 2% TOPICAL OINTMENT 22 GM TUBE TP SCH ×2 (09:47→21:35)
[2019-01-22] MEDS ORDERED: CALCIUM GLUCONATE 10% - 1,000 MG/10 ML VIAL IVPB ONE (13:00)
--- NOTE | 2019-01-22 13:17 | PN ---
Progress Note (short form) - Note Progress Note: Current Medications Amino Acids (Prosource No Carb Liquid Pkt) 30 ml PO BID@0800,1730 [facility] Last Admin: 01/22/19 08:29 Dose: 30 ml Aspirin (Ecotrin -) 81 mg PO DAILY [facility] Last Admin: 01/22/19 09:31 Dose: 81 mg Benztropine Mesylate (Cogentin -) 0.25 mg PO BID [facility] Stop: 01/23/19 08:00 Last Admin: 01/22/19 09:31 Dose: 0.25 mg Calcium Carbonate (Calcium Carbonate -) 650 mg PO TID [facility] Last Admin: 01/22/19 06:23 Dose: 650 mg Calcium Gluconate (Calcium Gluconate 10% -) 1,000 mg IVPB ONCE ONE Stop: 01/22/19 13:01 Last Admin: 01/22/19 12:32 Dose: 1,000 mg Enoxaparin Sodium (Lovenox -) 40 mg SQ DAILY [facility] Last Admin: 01/22/19 09:31 Dose: 40 mg Dextrose/Sodium Chloride (D5-Ns -) 1,000 mls @ 75 mls/hr IV ASDIR [facility] Last Admin: 01/22/19 09:22 Dose: 75 mls/hr Metoprolol Succinate (Toprol Xl -) 12.5 mg PO DAILY [facility] Last Admin: 01/22/19 09:30 Dose: 12.5 mg Mupirocin (Bactroban 2% Ointment -) 1 applic TP BID [facility] Last Admin: 01/22/19 09:47 Dose: 1 applic Pantoprazole Sodium (Protonix -) 40 mg PO DAILY [facility] Last Admin: 01/22/19 09:30 Dose: 40 mg Ranolazine (Ranexa -) 500 mg PO BID [facility] Last Admin: 01/22/19 09:30 Dose: 500 mg Tamsulosin HCl (Flomax -) 0.8 mg PO DAILY@0830 [facility] Last Admin: 01/22/19 08:29 Dose: 0.8 mg Laboratory Results - last 24 hr 01/22/19 06:10 Sodium 143 Potassium 3.8 Chloride 112 H Carbon Dioxide 21 Anion Gap 10 BUN 26.8 H Creatinine 2.0 H Est GFR (CKD-EPI)AfAm 34.25 Est GFR (CKD-EPI)NonAf 29.56 Random Glucose 82 Calcium 5.9 L* Vital Signs Temperature 98.0 F 01/22/19 06:00 Pulse Rate 77 01/22/19 06:00 Respiratory Rate 18 01/22/19 06:00 Blood Pressure 114/50 L 01/22/19 06:00 O2 Sat by Pulse Oximetry (%) 97 01/21/19 21:00 CC: still has some muscle twitching `````````````````````````````````````````` skin--pallor; area of redness and central focus of purulence on Lt antecub fossa ; no streaking eyes--anicteric lungs--grossly clear heart--RR abd--benign neuro--anxious, confused; good eye contact; speech is pressured; no motor deficits ````````````````````````````````````````````````````````` Summ > Acute renal insuff--2nd to urinary retention likely triggered by use of Haldol then benadryl. BUN/Cr has improved with insertion of Gomes to relieve the retention. PLAN: Remove cath in AM; check Bun/Cr in AM; cont IVF & Flomax > acute delirium--is confused and at times delusional, but calm; he is able to speak fluently, and is able to recognize family members. May be made worse by use of: Casodex; Klonopin and Cogentin. PLAN: stop all these agents > Dystonic rx--post 1 dose of Haldol; seems to be subsiding; helped by use of Cogentin but will d/c it in AM. > Hypokalemia--replenish as needed > Hypocalcemia--Level again low (under 6) today; w/o receiving IV Calcium yesterday; PLAN: cont PO and give 1 dose of IV Calcium; serum PTH is appriopriately elevated indicating no parathyroid gland dysfunction. PLAN: check daily calcium levels > Low Magnesium--replenish as needed > pustule--with surrounding redness; culture taken; result suggestive of MSSA; he is not ill or febrile; await culture report. 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 Code(s): I13.10 - HYP HRT & CHR KDNY DIS W/O HRT FAIL, W STG 1-4/UNSP CHR KDNY Qualifiers: Chronic kidney disease stage: stage 1 Heart failure presence: without heart failure Qualified Code(s): I13.10 - Hypertensive heart and chronic kidney disease without heart failure, with stage 1 through stage 4 chronic kidney disease, or unspecified chronic kidney disease; N18.1 - Chronic kidney disease, stage 1 (4) Prostate cancer Code(s): C61 - MALIGNANT NEOPLASM OF PROSTATE (5) Anemia Code(s): D64.9 - ANEMIA, UNSPECIFIED Qualifiers: Anemia type: unspecified type Qualified Code(s): D64.9 - Anemia, unspecified (6) Hiatal hernia with 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
[2019-01-23] MEDS: DEXTROSE 5%-NORMAL SALINE 1,000 ML IV SCH (02:17)
[2019-01-23] MEDS: CALCIUM CARBONATE 650 MG TABLET PO SCH ×3 (06:16→21:52)
[2019-01-23 07:42] LABS: BLOOD UREA NITROGEN 16.5 mg/dL (7-18); CREATININE 1.1 mg/dL (0.55-1.3); POTASSIUM 3.7 mmol/L (3.5-5.1)
[2019-01-23 07:45] LABS: CALCIUM 5.9 mg/dL (8.5-10.1)
[2019-01-23] MEDS: TAMSULOSIN HCL 0.4 MG CAP PO SCH ×2 (10:35→15:16)
[2019-01-23] MEDS: AMINO ACIDS/PROTEIN HYDROLYS 30 ML LIQUID.PKT PO SCH ×2 (10:35→18:06)
[2019-01-23] MEDS: ASPIRIN COATED 81 MG TABLET.EC PO SCH ×2 (10:36→15:17)
[2019-01-23] MEDS: RANOLAZINE E.R. 500 MG TABLET (FP) PO SCH ×2 (10:36→21:52)
[2019-01-23] MEDS: PANTOPRAZOLE 40 MG TABLET (FP) PO SCH ×2 (10:36→15:17)
[2019-01-23] MEDS: metoPROLOL SUCCINATE 25 MG TAB.SR.24H (FP) PO SCH ×2 (10:36→15:15)
[2019-01-23] MEDS ORDERED: CALCIUM GLUCONATE 10% - 1,000 MG/10 ML VIAL IVPB ONE ×2 (11:30→21:22)
[2019-01-23] MEDS: ENOXAPARIN NA (PORCINE) 40 MG/0.4 ML DISP.SYRIN SQ SCH (11:37)
[2019-01-23] MEDS: LACTATED RINGERS SOLUTION 1,000 ML/1,000 ML INFUS.BAG IV SCH (11:37)
[2019-01-23] MEDS: MUPIROCIN 2% TOPICAL OINTMENT 22 GM TUBE TP SCH ×2 (12:44→21:59)
--- NOTE | 2019-01-23 16:36 | PN ---
Progress Note (short form) - Note Progress Note: Current Medications Amino Acids (Prosource No Carb Liquid Pkt) 30 ml PO BID@0800,1730 [facility] Last Admin: 01/23/19 10:35 Dose: Not Given Aspirin (Ecotrin -) 81 mg PO DAILY [facility] Last Admin: 01/23/19 15:17 Dose: 81 mg Calcium Carbonate (Calcium Carbonate -) 650 mg PO TID [facility] Last Admin: 01/23/19 15:16 Dose: 650 mg Enoxaparin Sodium (Lovenox -) 40 mg SQ DAILY [facility] Last Admin: 01/23/19 11:37 Dose: 40 mg Lactated Ringer's (Lactated Ringers Solution) 1,000 ml in 1,000 mls @ 42 mls/ hr IV ASDIR [facility] Last Admin: 01/23/19 11:37 Dose: 42 mls/hr Metoprolol Succinate (Toprol Xl -) 12.5 mg PO DAILY [facility] Last Admin: 01/23/19 15:15 Dose: 12.5 mg Mupirocin (Bactroban 2% Ointment -) 1 applic TP BID [facility] Last Admin: 01/23/19 12:44 Dose: 1 applic Pantoprazole Sodium (Protonix -) 40 mg PO DAILY [facility] Last Admin: 01/23/19 15:17 Dose: 40 mg Ranolazine (Ranexa -) 500 mg PO BID [facility] Last Admin: 01/23/19 10:36 Dose: Not Given Tamsulosin HCl (Flomax -) 0.8 mg PO DAILY@0830 [facility] Last Admin: 01/23/19 15:16 Dose: 0.8 mg Trimethoprim/Sulfamethoxazole (Bactrim Ds -) 1 each PO DAILY [facility] Laboratory Results - last 24 hr 01/23/19 06:15 Sodium 146 H Potassium 3.7 Chloride 116 H Carbon Dioxide 22 Anion Gap 8 BUN 16.5 Creatinine 1.1 Est GFR (CKD-EPI)AfAm 70.57 Est GFR (CKD-EPI)NonAf 60.89 Random Glucose 89 Calcium 5.9 L* Magnesium 2.0 Vital Signs Temperature 98.9 F 01/23/19 14:00 Pulse Rate 91 H 01/23/19 14:00 Respiratory Rate 20 01/23/19 14:00 Blood Pressure 172/80 H 01/23/19 14:00 O2 Sat by Pulse Oximetry (%) 96 01/22/19 21:00 CC: drowsy but rousable `````````````````````````````````````````` skin--area of redness and central focus of purulence on Lt antecub fossa; no streaking eyes--anicteric lungs--grossly clear heart--RR abd--benign; non distended neuro--somnolent; able to moves all E's ````````````````````````````````````````````````````````` Summ > Acute renal insuff--resolved, PLAN; cont IVF & Flomax > acute urinary retention--have stopped anti-chol agents; have removed Gomes will observe for spont voiding > acute delirium--is confused and at times delusional; multi-factoral > Dystonic rx--post use of neuroleptic; now off all anti-chol agents. > Hypokalemia--replenish as needed > Hypocalcemia--Level again low (under 6) today; cont PO and give added dose of IV Calcium; serum PTH is appriopriately elevated indicating no parathyroid gland dysfunction. PLAN: check daily calcium levels; endocrine consult > Low Magnesium--replenish as needed > pustule--2nd MSSA; start Bactrim. 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 Code(s): I13.10 - HYP HRT & CHR KDNY DIS W/O HRT FAIL, W STG 1-4/UNSP CHR KDNY Qualifiers: Chronic kidney disease stage: stage 1 Heart failure presence: without heart failure Qualified Code(s): I13.10 - Hypertensive heart and chronic kidney disease without heart failure, with stage 1 through stage 4 chronic kidney disease, or unspecified chronic kidney disease; N18.1 - Chronic kidney disease, stage 1 (4) Prostate cancer Code(s): C61 - MALIGNANT NEOPLASM OF PROSTATE (5) Anemia Code(s): D64.9 - ANEMIA, UNSPECIFIED Qualifiers: Anemia type: unspecified type Qualified Code(s): D64.9 - Anemia, unspecified (6) Hiatal hernia with 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
[2019-01-23] MEDS ORDERED: PT OWN MED DRAWER 7, Y5N ONE (21:01)
--- NOTE | 2019-01-23 22:00 | CON.ENT ---
Consult Reason for Consultation:: hypocalcemia - History of Present Illness Chief Complaint: prolonged hypocalcemia History of Present Illness: admitted low calcium, ?signs nd symptoms, confusion - History Source History Provided By: Patient, Family Member, Medical Record Limitations to Obtaining History: Clinical Condition - Past Medical History Cardio/Vascular: Yes: CAD (4 coronary stenst in 2004), HTN, Hyperlipdemia, Other (carotid stenosis) Gastrointestinal: Yes: Constipation, Diverticulosis, GERD, Hiatal Hernia, Peptic Ulcer Disease (duodenal ulcer 2012), Other (colon ademnoma removed 2012, 06/06/18 pancreatic tail 7mm IPMN) Renal/: Yes: BPH, Cancer (prostate cancer) Musculoskeletal: Yes: Osteoarthritis Rheumatology: Yes: Gout Endocrine: Yes: Osteopenia (osteporosis) - Past Surgical History Past Surgical History: Yes: Carotid Endarterectomy (left), Tonsillectomy - Alcohol/Substance Use Hx Alcohol Use: Yes (socially) History of Substance Use: reports: None - Smoking History Smoking history: Former smoker Have you smoked in the past 12 months: No If you are a former smoker, when did you quit?: 1960 - Social History Usual Living Arrangement: With Spouse ADL: Independent 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 History of Recent Travel: No Home Medications - Allergies Allergies/Adverse Reactions: Allergies Allergy/AdvReac Type Severity Reaction Status Date / Time Penicillins Allergy Verified 01/17/19 22:10 - Home Medications Home Medications: Ambulatory Orders Ranolazine [Ranexa] 500 mg PO DAILY 01/25/13 Aspirin [ASA -] 81 mg PO DAILY 09/17/17 Pantoprazole Sodium [Protonix] 40 mg PO DAILY 09/17/17 Calcium Carbonate 500 gm MC TID #100 tab 11/29/18 Melatonin 5 mg PO HS PRN tab 11/29/18 Amlodipine Besylate 2.5 mg PO DAILY 01/18/19 Metoprolol Succinate 25 mg PO DAILY 01/18/19 Tamsulosin HCl [Flomax] 0.4 mg PO DAILY 01/18/19 Family Disease History - Family Disease History Family Disease History: Heart Disease: Father (CHF), Brother ( with jaundice ), CA: Mother (Uterine cancer), Other: Brother Review of Systems - Review of Systems Constitutional: reports: Lethargy, Loss of Appetite, Weakness Physical Exam-ENT Vital Signs: Vital Signs Temperature 97.7 F 01/23/19 16:32 Pulse Rate 72 01/23/19 16:32 Respiratory Rate 18 01/23/19 16:32 Blood Pressure 127/67 01/23/19 16:32 O2 Sat by Pulse Oximetry (%) 98 01/23/19 09:00 Constitutional: Yes: No Distress, Cachectic Head: Yes: WNL Cardiovascular: Yes: Regular Rate and Rhythm Respiratory: Yes: CTA Bilaterally Gastrointestinal: Yes: Normal Bowel Sounds Edema: No Imaging - Results Cat Scan: Report Reviewed Problem List - Problems (1) Hypocalcemia Assessment/Plan: suspect due to low mag related to diarrhea or ? radiation related affecting bowels--advise continued oral calcium if tolerates , can add more to double dose , add vitamin D calcitriol 0.25mcg po, if needed can use calcium in IV infusion but overall calcium is improving and corrects for low albumin to 7.3-7.4 As this appears to be somewhat of a chronic issue not clear of signs and symptoms--no trousseau or chvostek seen, may be other confounding factors in overall status and improved calcium may not improve overall status, reviewed this with family had received denusomab november 04 and do not suspect it is related to this issue Code(s): E83.51 - HYPOCALCEMIA (2) Hypomagnesemia Assessment/Plan: corrected and expect improvement in above Code(s): E83.42 - HYPOMAGNESEMIA (3) Diarrhea Code(s): R19.7 - DIARRHEA, UNSPECIFIED Qualifiers: Diarrhea type: unspecified type Qualified Code(s): R19.7 - Diarrhea, unspecified
[2019-01-24] MEDS: CALCIUM CARBONATE 650 MG TABLET PO SCH ×3 (06:23→21:30)
[2019-01-24] MEDS: AMINO ACIDS/PROTEIN HYDROLYS 30 ML LIQUID.PKT PO SCH ×2 (07:55→17:02)
[2019-01-24] MEDS: TAMSULOSIN HCL 0.4 MG CAP PO SCH (07:55)
[2019-01-24 08:58] LABS: ALBUMIN 1.9 g/dl (3.4-5.0); BILIRUBIN,TOTAL 0.5 mg/dL (0.2-1); BLOOD UREA NITROGEN 11.7 mg/dL (7-18); CREATININE 0.9 mg/dL (0.55-1.3); POTASSIUM 3.6 mmol/L (3.5-5.1); TOT PROT 4.4 g/dl (6.4-8.2)
[2019-01-24] MEDS ORDERED: PT OWN MED DRAWER 7, Y5N ONE ×4 (09:06→21:05)
[2019-01-24] MEDS: metoPROLOL SUCCINATE 25 MG TAB.SR.24H (FP) PO SCH (09:23)
[2019-01-24] MEDS: PANTOPRAZOLE 40 MG TABLET (FP) PO SCH (09:23)
[2019-01-24] MEDS: ASPIRIN COATED 81 MG TABLET.EC PO SCH (09:23)
[2019-01-24] MEDS: ENOXAPARIN NA (PORCINE) 40 MG/0.4 ML DISP.SYRIN SQ SCH (09:23)
[2019-01-24] MEDS: RANOLAZINE E.R. 500 MG TABLET (FP) PO SCH ×2 (09:23→21:30)
[2019-01-24] MEDS: MUPIROCIN 2% TOPICAL OINTMENT 22 GM TUBE TP SCH ×2 (09:23→21:30)
[2019-01-24 09:25] LABS: CALCIUM 6.3 mg/dL (8.5-10.1)
[2019-01-24] MEDS: SULFAMETHOXAZOLE/TRIMETHOPRIM 800MG/160MG D.S. TABLET PO SCH (11:10)
[2019-01-24] MEDS: LACTATED RINGERS SOLUTION 1,000 ML/1,000 ML INFUS.BAG IV SCH (14:05)
--- NOTE | 2019-01-24 16:34 | PN ---
Progress Note (short form) - Note Progress Note: Current Medications Amino Acids (Prosource No Carb Liquid Pkt) 30 ml PO BID@0800,1730 [facility] Last Admin: 01/24/19 07:55 Dose: 30 ml Aspirin (Ecotrin -) 81 mg PO DAILY [facility] Last Admin: 01/24/19 09:23 Dose: 81 mg Calcium Carbonate (Calcium Carbonate -) 650 mg PO TID [facility] Last Admin: 01/24/19 14:01 Dose: 650 mg Docusate Sodium (Colace -) 100 mg PO DAILY [facility] Enoxaparin Sodium (Lovenox -) 40 mg SQ DAILY [facility] Last Admin: 01/24/19 09:23 Dose: 40 mg Lactated Ringer's (Lactated Ringers Solution) 1,000 ml in 1,000 mls @ 42 mls/ hr IV ASDIR [facility] Last Admin: 01/24/19 14:05 Dose: 42 mls/hr Metoprolol Succinate (Toprol Xl -) 12.5 mg PO DAILY [facility] Last Admin: 01/24/19 09:23 Dose: 12.5 mg Mupirocin (Bactroban 2% Ointment -) 1 applic TP BID [facility] Last Admin: 01/24/19 09:23 Dose: 1 applic Pantoprazole Sodium (Protonix -) 40 mg PO DAILY [facility] Last Admin: 01/24/19 09:23 Dose: 40 mg Ranolazine (Ranexa -) 500 mg PO BID [facility] Last Admin: 01/24/19 09:23 Dose: 500 mg Tamsulosin HCl (Flomax -) 0.8 mg PO DAILY@0830 [facility] Last Admin: 01/24/19 07:55 Dose: 0.8 mg Trimethoprim/Sulfamethoxazole (Bactrim Ds -) 1 each PO DAILY [facility] Last Admin: 01/24/19 11:10 Dose: 1 each Laboratory Results - last 24 hr 01/24/19 07:45 Sodium 144 Potassium 3.6 Chloride 115 H Carbon Dioxide 23 Anion Gap 7 L BUN 11.7 Creatinine 0.9 Est GFR (CKD-EPI)AfAm 89.95 Est GFR (CKD-EPI)NonAf 77.61 Random Glucose 79 Calcium 6.3 L* Total Bilirubin 0.5 AST 23 ALT 15 Alkaline Phosphatase 104 Total Protein 4.4 L Albumin 1.9 L Vital Signs Temperature 98.1 F 01/24/19 14:00 Pulse Rate 62 07/02/19 14:00 Respiratory Rate 20 01/24/19 14:00 Blood Pressure 124/50 L 01/24/19 14:00 O2 Sat by Pulse Oximetry (%) 97 01/24/19 09:00 CC: alert, coherent `````````````````````````````````````````` skin--less redness on LtAC fossa eyes--anicteric lungs--grossly clear heart--RR abd--benign; non distended neuro--somnolent; able to moves all E's ````````````````````````````````````````````````````````` Summ > Acute renal insuff--resolved, PLAN; cont IVF & Flomax > acute urinary retention--have stopped anti-chol agents; still unable to void since the 1st time the murillo was removed: PLAN: re-inserted > acute delirium--has mostly resolved > Dystonic rx--post use of neuroleptic; now off all anti-chol agents; no further dystonic episodes observed. > Hypokalemia--replenish as needed > Hypocalcemia--Level over 6 today; cont PO and hold IV Calcium. > Low Magnesium--replenish as needed > pustule--2nd MSSA; improved with Bactrim. 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 Code(s): I13.10 - HYP HRT & CHR KDNY DIS W/O HRT FAIL, W STG 1-4/UNSP CHR KDNY Qualifiers: Chronic kidney disease stage: stage 1 Heart failure presence: without heart failure Qualified Code(s): I13.10 - Hypertensive heart and chronic kidney disease without heart failure, with stage 1 through stage 4 chronic kidney disease, or unspecified chronic kidney disease; N18.1 - Chronic kidney disease, stage 1 (4) Prostate cancer Code(s): C61 - MALIGNANT NEOPLASM OF PROSTATE (5) Anemia Code(s): D64.9 - ANEMIA, UNSPECIFIED Qualifiers: Anemia type: unspecified type Qualified Code(s): D64.9 - Anemia, unspecified (6) Hiatal hernia with 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
[2019-01-24] MEDS ORDERED: ACETAMINOPHEN 325 MG TABLET (FP) PO PRN (20:17)
[2019-01-24] MEDS: BACITRACIN 15 GM TUBE TOPICAL OINTMENT TP SCH (21:31)
[2019-01-25] MEDS: CALCIUM CARBONATE 650 MG TABLET PO SCH ×3 (06:29→21:13)
[2019-01-25] MEDS ORDERED: PT OWN MED DRAWER 7, Y5N ONE ×4 (06:40→18:41)
[2019-01-25 08:04] LABS: BLOOD UREA NITROGEN 13.4 mg/dL (7-18); CREATININE 0.9 mg/dL (0.55-1.3); POTASSIUM 3.7 mmol/L (3.5-5.1)
[2019-01-25] MEDS: TAMSULOSIN HCL 0.4 MG CAP PO SCH (08:07)
[2019-01-25] MEDS: AMINO ACIDS/PROTEIN HYDROLYS 30 ML LIQUID.PKT PO SCH ×2 (08:07→17:31)
[2019-01-25 08:08] LABS: CALCIUM 6.4 mg/dL (8.5-10.1)
[2019-01-25] MEDS: DOCUSATE SODIUM 100 MG CAPSULE (FP) PO SCH (10:19)
[2019-01-25] MEDS: PANTOPRAZOLE 40 MG TABLET (FP) PO SCH (10:19)
[2019-01-25] MEDS: RANOLAZINE E.R. 500 MG TABLET (FP) PO SCH ×2 (10:19→21:14)
[2019-01-25] MEDS: ASPIRIN COATED 81 MG TABLET.EC PO SCH (10:19)
[2019-01-25] MEDS: SULFAMETHOXAZOLE/TRIMETHOPRIM 800MG/160MG D.S. TABLET PO SCH (10:19)
[2019-01-25] MEDS: ENOXAPARIN NA (PORCINE) 40 MG/0.4 ML DISP.SYRIN SQ SCH (10:19)
[2019-01-25] MEDS: metoPROLOL SUCCINATE 25 MG TAB.SR.24H (FP) PO SCH (10:19)
[2019-01-25] MEDS: MUPIROCIN 2% TOPICAL OINTMENT 22 GM TUBE TP SCH ×2 (10:20→21:15)
[2019-01-25] MEDS: BACITRACIN 15 GM TUBE TOPICAL OINTMENT TP SCH ×2 (10:20→21:15)
[2019-01-25] MEDS: LACTATED RINGERS SOLUTION 1,000 ML/1,000 ML INFUS.BAG IV SCH (10:28)
[2019-01-25] MEDS: CALCIUM GLUCONATE 10% - 1,000 MG/10 ML VIAL IVPB SCH (12:39)
--- NOTE | 2019-01-25 13:50 | PN ---
Progress Note (short form) - Note Progress Note: Current Medications Acetaminophen (Tylenol -) 650 mg PO Q6H PRN PRN Reason: PAIN Last Admin: 01/24/19 20:25 Dose: 650 mg Amino Acids (Prosource No Carb Liquid Pkt) 30 ml PO BID@0800,1730 [facility] Last Admin: 01/25/19 08:07 Dose: 30 ml Aspirin (Ecotrin -) 81 mg PO DAILY [facility] Last Admin: 01/25/19 10:19 Dose: 81 mg Bacitracin (Bacitracin -) 1 applic TP BID [facility] Last Admin: 01/25/19 10:20 Dose: 1 applic Calcium Carbonate (Calcium Carbonate -) 650 mg PO TID [facility] Last Admin: 01/25/19 06:29 Dose: 650 mg Docusate Sodium (Colace -) 100 mg PO DAILY [facility] Last Admin: 01/25/19 10:19 Dose: 100 mg Enoxaparin Sodium (Lovenox -) 40 mg SQ DAILY [facility] Last Admin: 01/25/19 10:19 Dose: 40 mg Lactated Ringer's (Lactated Ringers Solution) 1,000 ml in 1,000 mls @ 42 mls/ hr IV ASDIR [facility] Last Admin: 01/25/19 10:28 Dose: 42 mls/hr Metoprolol Succinate (Toprol Xl -) 12.5 mg PO DAILY [facility] Last Admin: 01/25/19 10:19 Dose: 12.5 mg Mupirocin (Bactroban 2% Ointment -) 1 applic TP BID [facility] Last Admin: 01/25/19 10:20 Dose: 1 applic Pantoprazole Sodium (Protonix -) 40 mg PO DAILY [facility] Last Admin: 01/25/19 10:19 Dose: 40 mg Ranolazine (Ranexa -) 500 mg PO BID [facility] Last Admin: 01/25/19 10:19 Dose: 500 mg Tamsulosin HCl (Flomax -) 0.8 mg PO DAILY@0830 [facility] Last Admin: 01/25/19 08:07 Dose: 0.8 mg Trimethoprim/Sulfamethoxazole (Bactrim Ds -) 1 each PO DAILY [facility] Last Admin: 01/25/19 10:19 Dose: 1 each Laboratory Results - last 24 hr 01/25/19 06:55 Sodium 143 Potassium 3.7 Chloride 113 H Carbon Dioxide 25 Anion Gap 6 L BUN 13.4 Creatinine 0.9 Est GFR (CKD-EPI)AfAm 89.95 Est GFR (CKD-EPI)NonAf 77.61 Random Glucose 82 Calcium 6.4 L* Vital Signs Temperature 97.6 F 01/25/19 09:00 Pulse Rate 67 01/25/19 09:00 Respiratory Rate 20 01/25/19 09:00 Blood Pressure 123/58 L 01/25/19 09:00 O2 Sat by Pulse Oximetry (%) 98 01/25/19 09:00 CC: alert, coherent `````````````````````````````````````````` skin--less redness on LtAC fossa; skin tear between 4th & 5th toe eyes--anicteric lungs--grossly clear heart--RR abd--benign; non distended neuro--somnolent; able to moves all E's ````````````````````````````````````````````````````````` Summ > acute urinary retention--have stopped anti-chol agents; still unable to void after several attempts; may need to replace if no output > acute delirium--has resolved > Dystonic rx--no further dystonic episodes observed. > Hypokalemia--replenish as needed > Hypocalcemia--Level over 6 today; cont PO and hold IV Calcium. > Low Magnesium--replenish as needed > pustule--nearly resolved with Bactrim. 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 Code(s): I13.10 - HYP HRT & CHR KDNY DIS W/O HRT FAIL, W STG 1-4/UNSP CHR KDNY Qualifiers: Chronic kidney disease stage: stage 1 Heart failure presence: without heart failure Qualified Code(s): I13.10 - Hypertensive heart and chronic kidney disease without heart failure, with stage 1 through stage 4 chronic kidney disease, or unspecified chronic kidney disease; N18.1 - Chronic kidney disease, stage 1 (4) Prostate cancer Code(s): C61 - MALIGNANT NEOPLASM OF PROSTATE (5) Anemia Code(s): D64.9 - ANEMIA, UNSPECIFIED Qualifiers: Anemia type: unspecified type Qualified Code(s): D64.9 - Anemia, unspecified (6) Hiatal hernia with 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
[2019-01-25] MEDS: PSYLLIUM 5.85 GM PACKET PO SCH (16:12)
[2019-01-26] MEDS: LACTATED RINGERS SOLUTION 1,000 ML/1,000 ML INFUS.BAG IV SCH ×2 (06:59→14:28)
[2019-01-26] MEDS: CALCIUM CARBONATE 650 MG TABLET PO SCH ×3 (07:00→22:19)
[2019-01-26 08:30] LABS: BLOOD UREA NITROGEN 12.6 mg/dL (7-18); CREATININE 0.9 mg/dL (0.55-1.3); POTASSIUM 3.8 mmol/L (3.5-5.1)
[2019-01-26 09:48] LABS: CALCIUM 6.3 mg/dL (8.5-10.1)
[2019-01-26] MEDS: metoPROLOL SUCCINATE 25 MG TAB.SR.24H (FP) PO SCH (10:36)
[2019-01-26] MEDS: PANTOPRAZOLE 40 MG TABLET (FP) PO SCH (10:36)
[2019-01-26] MEDS: TAMSULOSIN HCL 0.4 MG CAP PO SCH (10:36)
[2019-01-26] MEDS: RANOLAZINE E.R. 500 MG TABLET (FP) PO SCH ×2 (10:36→22:19)
[2019-01-26] MEDS: PSYLLIUM 5.85 GM PACKET PO SCH (10:37)
[2019-01-26] MEDS: ASPIRIN COATED 81 MG TABLET.EC PO SCH (10:37)
[2019-01-26] MEDS: ENOXAPARIN NA (PORCINE) 40 MG/0.4 ML DISP.SYRIN SQ SCH (10:37)
[2019-01-26] MEDS: DOCUSATE SODIUM 100 MG CAPSULE (FP) PO SCH (10:37)
[2019-01-26] MEDS: AMINO ACIDS/PROTEIN HYDROLYS 30 ML LIQUID.PKT PO SCH ×2 (10:38→18:24)
[2019-01-26] MEDS: SULFAMETHOXAZOLE/TRIMETHOPRIM 800MG/160MG D.S. TABLET PO SCH (10:38)
[2019-01-26] MEDS ORDERED: GLYCERIN 1 RECTAL SUPPOSITORY, ADULT RC ONE (11:45)
[2019-01-26] MEDS ORDERED: SODIUM PHOSPHATE/NA BIPHOS 133 ML ENEMA PR ONE (12:50)
--- NOTE | 2019-01-26 12:55 | PN ---
Progress Note (short form) - Note Progress Note: Current Medications Acetaminophen (Tylenol -) 650 mg PO Q6H PRN PRN Reason: PAIN Last Admin: 01/24/19 20:25 Dose: 650 mg Amino Acids (Prosource No Carb Liquid Pkt) 30 ml PO BID@0800,1730 [facility] Last Admin: 01/26/19 10:38 Dose: 30 ml Aspirin (Ecotrin -) 81 mg PO DAILY [facility] Last Admin: 01/26/19 10:37 Dose: 81 mg Bacitracin (Bacitracin -) 1 applic TP BID [facility] Last Admin: 01/25/19 21:15 Dose: 1 applic Calcium Carbonate (Calcium Carbonate -) 650 mg PO TID [facility] Last Admin: 01/26/19 07:00 Dose: 650 mg Docusate Sodium (Colace -) 100 mg PO DAILY [facility] Last Admin: 01/26/19 10:37 Dose: 100 mg Enoxaparin Sodium (Lovenox -) 40 mg SQ DAILY [facility] Last Admin: 01/26/19 10:37 Dose: 40 mg Lactated Ringer's (Lactated Ringers Solution) 1,000 ml in 1,000 mls @ 42 mls/ hr IV ASDIR [facility] Last Admin: 01/26/19 06:59 Dose: 42 mls/hr Metoprolol Succinate (Toprol Xl -) 12.5 mg PO DAILY [facility] Last Admin: 01/26/19 10:36 Dose: 12.5 mg Mupirocin (Bactroban 2% Ointment -) 1 applic TP BID [facility] Last Admin: 01/25/19 21:15 Dose: 1 applic Pantoprazole Sodium (Protonix -) 40 mg PO DAILY [facility] Last Admin: 01/26/19 10:36 Dose: 40 mg Psyllium Hydrophilic Mucilloid (Metamucil (Sugar-Free) -) 5.85 gm PO DAILY [facility] Last Admin: 01/26/19 10:37 Dose: 5.85 gm Ranolazine (Ranexa -) 500 mg PO BID [facility] Last Admin: 01/26/19 10:36 Dose: 500 mg Sodium Phosphate (Fleet Adult Rectal Enema -) 133 ml AL ONCE ONE Stop: 01/26/19 12:51 Tamsulosin HCl (Flomax -) 0.8 mg PO DAILY@0830 [facility] Last Admin: 07/04/19 10:36 Dose: 0.8 mg Trimethoprim/Sulfamethoxazole (Bactrim Ds -) 1 each PO DAILY [facility] Stop: 01/27/19 07:00 Last Admin: 01/26/19 10:38 Dose: 1 each Laboratory Results - last 24 hr 01/26/19 07:20 Sodium 140 Potassium 3.8 Chloride 110 H Carbon Dioxide 22 Anion Gap 8 BUN 12.6 Creatinine 0.9 Est GFR (CKD-EPI)AfAm 89.95 Est GFR (CKD-EPI)NonAf 77.61 Random Glucose 58 L Calcium 6.3 L* Vital Signs Temperature 98.1 F 01/26/19 09:30 Pulse Rate 60 01/26/19 09:30 Respiratory Rate 20 01/26/19 09:30 Blood Pressure 139/60 01/26/19 09:30 O2 Sat by Pulse Oximetry (%) 98 01/25/19 21:00 CC: alert, coherent; no BMs `````````````````````````````````````````` skin--less redness on LtAC fossa; clean skin tear between 4th & 5th toe eyes--anicteric lungs--grossly clear heart--RR abd--benign; non distended; rectal with lax shincter tone; soft pasty stool in anal canal yelowish neuro--lucid; able to moves all E's ````````````````````````````````````````````````````````` Summ > acute urinary retention--have stopped anti-chol agents; still unable to void after several attempts; will keep in Gomes > acute delirium--has resolved > Dystonic rx--no further dystonic episodes observed. > Hypokalemia--replenish as needed > Hypocalcemia--Level over 6 today; cont PO and hold IV Calcium. > Low Magnesium--replenish as needed > pustule--resolved with Bactrim. 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 Code(s): I13.10 - HYP HRT & CHR KDNY DIS W/O HRT FAIL, W STG 1-4/UNSP CHR KDNY Qualifiers: Chronic kidney disease stage: stage 1 Heart failure presence: without heart failure Qualified Code(s): I13.10 - Hypertensive heart and chronic kidney disease without heart failure, with stage 1 through stage 4 chronic kidney disease, or unspecified chronic kidney disease; N18.1 - Chronic kidney disease, stage 1 (4) Prostate cancer Code(s): C61 - MALIGNANT NEOPLASM OF PROSTATE (5) Anemia Code(s): D64.9 - ANEMIA, UNSPECIFIED Qualifiers: Anemia type: unspecified type Qualified Code(s): D64.9 - Anemia, unspecified (6) Hiatal hernia with 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
[2019-01-26] MEDS: BACITRACIN 15 GM TUBE TOPICAL OINTMENT TP SCH ×2 (14:26→22:20)
[2019-01-26] MEDS: MUPIROCIN 2% TOPICAL OINTMENT 22 GM TUBE TP SCH ×2 (14:27→22:20)
[2019-01-27] MEDS: CALCIUM CARBONATE 650 MG TABLET PO SCH ×2 (06:31→13:43)
[2019-01-27 08:07] LABS: BLOOD UREA NITROGEN 14.4 mg/dL (7-18); CREATININE 0.9 mg/dL (0.55-1.3); POTASSIUM 3.7 mmol/L (3.5-5.1)
[2019-01-27] MEDS: TAMSULOSIN HCL 0.4 MG CAP PO SCH (08:36)
[2019-01-27] MEDS: AMINO ACIDS/PROTEIN HYDROLYS 30 ML LIQUID.PKT PO SCH (08:36)
[2019-01-27 08:54] VITALS: PULSE 64
[2019-01-27] MEDS: LACTATED RINGERS SOLUTION 1,000 ML/1,000 ML INFUS.BAG IV SCH ×2 (09:23→11:00)
[2019-01-27] MEDS: ENOXAPARIN NA (PORCINE) 40 MG/0.4 ML DISP.SYRIN SQ SCH (09:24)
[2019-01-27] MEDS: metoPROLOL SUCCINATE 25 MG TAB.SR.24H (FP) PO SCH (09:25)
[2019-01-27] MEDS: RANOLAZINE E.R. 500 MG TABLET (FP) PO SCH (09:25)
[2019-01-27] MEDS: ASPIRIN COATED 81 MG TABLET.EC PO SCH (09:25)
[2019-01-27] MEDS: PANTOPRAZOLE 40 MG TABLET (FP) PO SCH (09:26)
[2019-01-27] MEDS: DOCUSATE SODIUM 100 MG CAPSULE (FP) PO SCH (09:26)
[2019-01-27] MEDS: PSYLLIUM 5.85 GM PACKET PO SCH (09:41)
[2019-01-27] MEDS: BACITRACIN 15 GM TUBE TOPICAL OINTMENT TP SCH (10:19)
[2019-01-27] MEDS: MUPIROCIN 2% TOPICAL OINTMENT 22 GM TUBE TP SCH (10:19)
[2019-01-27 15:22] VITALS: BP 123/49; TEMP 98
--- NOTE | 2019-01-27 15:24 | DS ---
Physical Examination Vital Signs: Vital Signs Temperature 97.8 F 01/27/19 08:53 Pulse Rate 64 01/27/19 08:53 Respiratory Rate 20 01/27/19 09:00 Blood Pressure 134/65 01/27/19 08:53 O2 Sat by Pulse Oximetry (%) 96 01/27/19 09:00 Constitutional: Yes: No Distress, Calm Eyes: Yes: Conjunctiva Clear Neck: Yes: Supple Cardiovascular: Yes: Regular Rate and Rhythm Respiratory: Yes: Regular Gastrointestinal: Yes: Normal Bowel Sounds, Soft ...Rectal Exam: Yes: Sphincter Tone Poor Renal/: Yes: Gomes Present Edema: LLE: Trace, RLE: Trace Integumentary: Yes: Skin Tear (sacral), Other (fungal rash om groin) Neurological: Yes: Alert, Oriented ...Motor Strength: WNL Psychiatric: Yes: WNL Labs: CBC, BMP 01/21/19 06:19 01/27/19 06:02 Discharge Summary Reason For Visit: HYPOCALCEMIA Current Active Problems Hypocalcemia (Acute) Hypomagnesemia (Acute) Prostate cancer (Acute) Protein calorie malnutrition (Acute) Hypertensive heart disease lipidemia anemia urinary retention delirium anxiety pressure sore (skin tear) sacrum) dungal rash groin Other Procedures: mutiple Gomes insertions Hospital Course: 83 YOM who was admitted feeling weak and for involuntary hand twitches several days after completing full 26 courses of RT to the pelvis for local prostate cancer. His calcium was found to be very low (under 5.0) and he was admitted for IV and PO replenshment; his Magnesium was also low requiring supplementation ; during his stay he remained weak, and then became delirious requiring use of tranquilizers. He subsequently developed acute urinary retention needing placement of Gomes; Attempts to remove proved unsuccessful, and it needed to be re-inserted and was left in place. His vitals were stable throughout his stay, but he developed a groin fungal rash, and a small sacral skin tear. He regained his normal mental status once his chemistry was normalized. He declined to go to rehab. He was able to ambulate 300 ft with a walker. The family was made aware that he would need full assistence while at home and that home PT has been ordered. Condition: Improved - Instructions Diet, Activity, Other Instructions: small frequent meals Disposition: [facility]/HOME HEALTH CARE - Home Medications Comprehensive Discharge Medication List: Ambulatory Orders Ranolazine [Ranexa] 500 mg PO DAILY 01/25/13 Aspirin [ASA -] 81 mg PO DAILY 09/17/17 Pantoprazole Sodium [Protonix] 40 mg PO DAILY 09/17/17 Melatonin 5 mg PO HS PRN tab 11/29/18 Metoprolol Succinate 25 mg PO DAILY 01/18/19 Calcium Carbonate [Calcium] 600 mg PO QID #100 tablet 01/27/19 Clotrimazole [Lotrimin 1% Cream -] 1 applic TP TID #1 tube 01/27/19 Tamsulosin HCl [Flomax -] 0.8 mg PO DAILY@0830 cap.er.24h 01/27/19 Zinc Oxide 28.4 gm TP BID 10 Days #1 oint..gm. 01/27/19 Vitamin D daily
--- NOTE | 2019-01-27 15:52 | PN ---
Progress Note (short form) - Note Progress Note: Addendum: Gomes can be changed or irrigated IF NEEDED by [facility] ```````````````` Dr Johnson 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 Code(s): I13.10 - HYP HRT & CHR KDNY DIS W/O HRT FAIL, W STG 1-4/UNSP CHR KDNY Qualifiers: Chronic kidney disease stage: stage 1 Heart failure presence: without heart failure Qualified Code(s): I13.10 - Hypertensive heart and chronic kidney disease without heart failure, with stage 1 through stage 4 chronic kidney disease, or unspecified chronic kidney disease; N18.1 - Chronic kidney disease, stage 1 (4) Prostate cancer Code(s): C61 - MALIGNANT NEOPLASM OF PROSTATE (5) Anemia Code(s): D64.9 - ANEMIA, UNSPECIFIED Qualifiers: Anemia type: unspecified type Qualified Code(s): D64.9 - Anemia, unspecified (6) Hiatal hernia with 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
== END 2019-01-27 17:10 | disposition home health service (06) | DRG 641 ==
LOC: JER 21:57 → JERBED 23:24 → J5S 01-18 13:07
PROVIDERS: ADMIT Internal Medicine; ATTEND Internal Medicine
PROC: 0T9B70Z Drainage of Bladder with Drainage Device, Via Natural or Artificial Opening (ICD-10-PCS; principal; 2019-01-22)
DX: E83.51 Hypocalcemia (principal); E46 Unspecified protein-calorie malnutrition; R64 Cachexia; E83.42 Hypomagnesemia; C61 Malignant neoplasm of prostate; I12.9 Hypertensive chronic kidney disease with stage 1 through stage 4 chronic kidney disease, or unspecified chronic kidney disease; N18.1 Chronic kidney disease, stage 1; E87.6 Hypokalemia; R33.9 Retention of urine, unspecified; R25.8 Other abnormal involuntary movements; T45.1X5A Adverse effect of antineoplastic and immunosuppressive drugs, initial encounter; I25.10 Atherosclerotic heart disease of native coronary artery without angina pectoris; R19.7 Diarrhea, unspecified; D64.9 Anemia, unspecified; M10.9 Gout, unspecified; Z95.5 Presence of coronary angioplasty implant and graft; E78.5 Hyperlipidemia, unspecified; Z87.11 Personal history of peptic ulcer disease; Z87.891 Personal history of nicotine dependence; K21.9 Gastro-esophageal reflux disease without esophagitis; K44.9 Diaphragmatic hernia without obstruction or gangrene; R45.1 Restlessness and agitation; L08.9 Local infection of the skin and subcutaneous tissue, unspecified; Z68.22 Body mass index [BMI] 22.0-22.9, adult; K59.00 Constipation, unspecified; M85.80 Other specified disorders of bone density and structure, unspecified site; R41.0 Disorientation, unspecified; R21 Rash and other nonspecific skin eruption
CPT/HCPCS: 36415; 70450-TC; 76856-TC; 80048; 80053; 81003; 82306; 82550; 82553; 83735; 83970; 84100; 84443; 84484; 85025; 85027; 85610; 87070; 87186; 87205; 93005; 93010; 97116-GP; 97162-GP; 99284-25; J7030